=== PATIENT | female | born 1955 | race Caucasian/White ===

== ENCOUNTER → 2017-10-30 12:21 | Outpatient (CLI) | payer MEDICARE, MEDICAID, SELFPAY ==
--- NOTE | 2017-10-30 12:30 | XR_ITS ---
XR elbow RT min 3V COMPARISON: None HISTORY: Right elbow pain TECHNIQUE: AP lateral and oblique views FINDINGS: There is no fracture or dislocation. There is no abnormal fat pad sign. There is minor spurring of the coronoid process of the olecranon fossa and mild spurring of the posterior aspect of the olecranon fossa. IMPRESSION: Mild degenerative and/or posttraumatic change, no acute fracture seen
--- NOTE | 2017-10-30 12:30 | XR_ITS ---
XR shoulder RT min 2V COMPARISON: None HISTORY: Right shoulder pain TECHNIQUE: 3 views right shoulder FINDINGS: The clavicle is intact. The AC joint appear normal. There is a lateral downsloping acromion process which causes some degree of subacromial stenosis. The humeral head and glenoid appear normal. There are no soft tissue calcifications. IMPRESSION: Lateral downsloping acromion process which could predispose to some degree of impingement syndrome and suggest clinical correlation
== END ==
PROVIDERS: PCP Family Medicine; Visit Provider Nurse Practitioner Family
DX: M79.601 Pain in right arm (principal)
CPT/HCPCS: 73030; 73080

== ENCOUNTER → 2017-11-13 11:35 | Outpatient (CLI) | payer MEDICARE, MEDICAID, SELFPAY ==
[2017-11-13 11:43] LABS: Microscopic, Urine URINE MICROSCOPIC (MICROSCOPIC)
[2017-11-13 12:39] LABS: Basophils % 0.4 % (0.1-2.0); Eosinophils # 0.1 K/mm3 (0.0-0.4); Eosinophils % 2.1 % (0.1-12.0); Hematocrit 37.7 % (37.0-47.0); Hemoglobin 12.1 g/dL (12.2-16.2); Lymphocytes # 1.6 K/mm3 (0.7-4.5); Lymphocytes % 24.1 K/mm3 (10-50); Mean Corpuscular Hemoglobin 27.9 pg (27.0-31.2); Mean Corpuscular Volume 87.3 fl (81-99); Monocytes # 0.3 K/mm3 (0.1-1.0); Monocytes % 4.2 % (1.7-9.3); Neutrophils # 4.6 K/mm3 (1.8-7.8); Neutrophils % 69.2 % (37.0-80.0); Platelet Count 162 K/mm3 (142-424); Red Blood Count 4.32 M/mm3 (4.20-5.40); Red Cell Distribution Width 13.8 % (11.5-17.5); White Blood Count 6.6 K/mm3 (4.8-10.8)
[2017-11-13 13:49] LABS: Creatinine,Urine Random 176 mg/dL (20-320); Total Protein,Urine Random 144.2 mg/dL (0.0-11.9)
[2017-11-13 13:51] LABS: Appearance,Urine SL CLOUDY (Clear); Bilirubin,Urine Negative (Negative); Blood, Urine Negative (Negative); Color,Urine YELLOW (Yellow); Glucose,Urine (UA) 2+ (Negative); Ketones,Urine Negative (Negative); Leukocyte Esterase,Urine Negative (Negative); Nitrate,Urine Negative (Negative); PH,Urine 5.5 (5.0-8.5); Protein,Urine 2+ (Negative); Specific Gravity, Urine >= 1.030 (1.005-1.030); Urobilinogen,Urine 0.2 EU/dl (0.2)
[2017-11-13 14:25] LABS: Bacteria,Urine 3+ /lpf
[2017-11-13 15:25] LABS: Albumin Level 3.2 gm/dL (3.4-5.0); Anion Gap 16.1 mEq/L (5-15); Blood Urea Nitrogen 21 mg/dL (7-18); Carbon Dioxide 24 mmol/L (21.0-32.0); Chloride 103 mmol/L (98-107); Creatinine,Serum 1.42 mg/dL (0.55-1.02); Estimated Glomerular Filt Rate 37 ml/min (>60); GFR (African American) 45 ML/MIN (>60); Glucose 254 mg/dL (74-106); Phosphorous 2.6 mg/dL (2.4-4.9); Potassium 4.1 mmoL/L (3.5-5.1); Sodium 139 mmol/L (136-145)
[2017-11-15 06:43] LABS: Parathyroid Hormone Intact 55 pg/mL (15-65); Vitamin D 25 Hydroxy 13.4 ng/mL (30.0-100.0)
== END ==
PROVIDERS: Visit Provider Internal Medicine Nephrology
DX: N18.4 Chronic kidney disease, stage 4 (severe) (principal); R82.90 Unspecified abnormal findings in urine
CPT/HCPCS: 36415; 80069; 81001; 82570; 82652; 83970; 84155; 85025; 87086

== ENCOUNTER → 2017-11-27 13:25 | Outpatient (POV) | payer MEDICARE, MEDICAID, SELFPAY | PROVIDERS: PCP Family Medicine; Visit Provider Internal Medicine Nephrology | DX: Z00.00 Encounter for general adult medical examination without abnormal findings (principal) ==

== ENCOUNTER → 2018-01-16 10:36 | Outpatient (CLI) | payer MEDICARE, MEDICAID, SELFPAY ==
--- NOTE | 2018-01-16 10:40 | NVE_ITS ---
Venous Exam Indications: 729.5 Pain in limb. IMPRESSIONS 1. There is no evidence of significant Reflux. 2. No evidence of deep or superficial vein thrombosis involving the right lower extremity Right lower extremity venous duplex evaluation. Doppler flow study including spectral analysis, color and salazar scale imaging. Location: Vascular laboratory. Patient status: Outpatient. Tables: Venous flow and imaging: + +-------+ + Location Overall Flow properties + +-------+ + Right common femoral Patent Normal phasicity; spontaneous; normal augmentation; compressible + +-------+ + Right saphenofemoral junction Patent Compressible + +-------+ + Right profunda femoral Patent Compressible + +-------+ + Right femoral Patent Normal phasicity; spontaneous; normal augmentation; compressible + +-------+ + Right greater saphenous Patent Normal phasicity; spontaneous; normal augmentation; compressible + +-------+ + Right popliteal Patent Normal phasicity; spontaneous; normal augmentation; compressible + +-------+ + Right posterior tibial Patent Compressible + +-------+ + Right peroneal Patent Compressible + +-------+ + Right gastrocnemius Patent Compressible + +-------+ + Right soleal Patent Compressible + +-------+ + (Report amended ) Electronically signed by: Laron Jimenez [id number]
== END ==
PROVIDERS: PCP Family Medicine; Visit Provider Family Medicine
DX: M79.604 Pain in right leg (principal); R60.0 Localized edema; E79.0 Hyperuricemia without signs of inflammatory arthritis and tophaceous disease
CPT/HCPCS: 93971

== ENCOUNTER → 2018-04-06 10:03 | Outpatient (CLI) | payer MEDICARE, MEDICAID, SELFPAY ==
--- NOTE | 2018-04-06 10:10 | XR_ITS ---
XR foot wt bearing LT 3V HISTORY: Foot pain, heel pain ITS.REASON: pain ORDERING PHYSICIAN: Mely Reyes DPM PATIENT AGE: 63 years COMPARISON: None FINDINGS: There is a prominent calcaneal spur measuring 16 mm. No erosive change evident. There is an enthesophyte at the Achilles insertion with a separate area of ossification proximal to the identified. There is some exostosis along the posterior and superior aspect of the calcaneus consistent with a Lainey deformity. Kager's fat pad is preserved.. Osteoarthritic changes are present at the mid foot at the talonavicular joint and the navicular cuneiform joint. There are cystic changes in the navicular measuring up to 17 mm. There is mild flexion deformity of the second and third toes. IMPRESSION: 1. Prominent calcaneal spur. 2. Lainey deformity of the calcaneus which may be seen with retrocalcaneal bursitis. 3. Osteoarthritic changes of the midfoot with prominent cystic changes of the navicular
--- NOTE | 2018-04-06 10:10 | XR_ITS ---
XR foot wt bearing RT 3V HISTORY: Heel pain ITS.REASON: pain ORDERING PHYSICIAN: Mely Reyes DPM PATIENT AGE: 63 years COMPARISON: None FINDINGS: There is a prominent calcaneal spur measuring 15 mm. No erosive changes evident of the spur. Achilles enthesophyte also noted at the calcaneus. There are mild osteoarthritic changes of the midfoot with cystic changes involving the body of the navicular and 14 mm. Mild osteoarthritic changes are present at the talonavicular joint and the navicular cuneiform joint. Borderline pes planus. There is spurring at the anterior distal aspect of the tibia with a lucency noted at the base of the spur. IMPRESSION: 1. Prominent bony spur of the calcaneus. 2. Osteoarthritic changes of the midfoot with cystic changes of the navicular. 3. Mild pes planus
== END ==
PROVIDERS: PCP Family Medicine; Visit Provider Podiatrist
DX: M79.673 Pain in unspecified foot (principal)
CPT/HCPCS: 73630

== ENCOUNTER → 2018-06-18 10:45 | Outpatient (CLI) | payer MEDICARE, MEDICAID, SELFPAY ==
--- NOTE | 2018-06-18 10:50 | XR_ITS ---
XR foot wt bearing RT 3V Ordering Physician: Mely Reyes DPM Patient Age: 63 years: Female HISTORY: ITS.REASON: pain Right foot pain. Charcot joint TECHNIQUE: 3 views right foot weightbearing COMPARISON :04/06/2018 right foot & 03/10/2018 FINDINGS Midfoot arthritic changes most likely Charcot's joint type changes with history of diabetes. These are most evident at the navicular-cuneiform articulations. Also suggestion developing arthritic changes noted second third and fourth tarsal metatarsal joints. As stated Arthritic changes are most pronounced about the navicular. The navicular demonstrates sclerotic changes with a large cystic area centrally measuring measuring at least 12 mm simple: perhaps up to 14 mm.. Findings appear stable since 04/06/2018 There is some irregularity of the distal navicular articular cortex laterally on the frontal projection. . Again prominent calcaneal spur measuring 15 mm. No erosive changes here. Generous spurring from Achilles enthesopathic also noted at the calcaneus. These features are stable. Appears to be a stocking or very light cast left in place. Correlation required... IMPRESSION: Likely Charcot joint Arthritic changes mid foot.- Most evident about the navicular.Prominent cystic changes mid navicular. The features here appears similar to the March and February study . Prominent plantar calcaneal bony spurring. Also generous spurring/enthesopathy at the Achilles tendon insertion.
--- NOTE | 2018-06-18 10:50 | XR_ITS ---
. XR foot wt bearing LT 3V, Ordering Physician: Mely Reyes DPM Patient Age: 63 years: Female HISTORY: ITS.REASON: pain Right and left foot pain TECHNIQUE: Left foot-3 views weightbearing COMPARISON weightbearing right and left foot 04/06/2018. ======= LEFT FOOT 3 view weightbearingdr FINDINGS: Prominent arthritic changes about the navicular. Most pronounced at talar-navicular joint. On the oblique view of the navicular itself appears to be flattened with diffuse sclerosis & prominent arthritic cystic changes or erosive changes dorsal aspect of this joint on the oblique view..... On the AP & lateral view Generous lucent appearance at central portion navicular evident.-. Likely large degenerative cystic feature less likely some other process. Suspect/Difficult to exclude fracture through this cystic area ; as there appears to be more pronounced superior elevation of the dorsal margin the navicular on today's lateral view.-Vs 04/06/2018.. But this appearance could reflect slight difference projection as evident at the more overlapping metatarsals but concern regarding interval fracture. Correlation required here. . arthritic changes are present throughout the mid foot involving not only the talonavicular joint but likely thenavicular cuneiform joints. Also mild narrowing and arthritic changes at second and third tarsal- metatarsal joints. Also some likely arthritic changes between the intermediate and lateral cuneiforms.... Toes intact with only scant if any flexion... Joint space maintained toes and MTP joints.. Generous plantar calcaneal spur measuring 15 mm Length No erosive changeevident. There is an enthesophyte at the Achilles insertion with spurring here measuring up to 10 mm.. Separate area of ossification proximal to the identified. These features stable The bowel Osseous prominence along the posterior,/superior aspect of the calcaneus, May reflect developing Lainey deformity. Kager's fat pad is preserved Small vessel calcifications noted about ankle. Could reflect diabetes- if so this could be a neuropathic etiology of the arthritic changes at navicular. -------IMPRESSION:----Left foot 1.Prominent likely Charcot's joint arthritic changes midfoot most pronounced about the slightly flattened sclerotic navicular bone... 2... Prominent cystic changes involving the central & dorsal navicular.. ... On today's study appears to be additional dorsal elevation of Navicular on lateral view foot.-Although could be be projectional. Suspect/ & cannot exclude navicular fracture, through the large central cystic area mid navicular.... Since previous study 3... Small vessel calcification noted likely reflecting diabetes- thus suspect above features reflect Charcot joint changes at mid foot. Arthritic changes also seen at the second and third tarsal metatarsal joints.. 4. Again note prominent calcaneal spur again noted-. Stable. Also Possible developing Lainey deformity of the calcaneus again noted
== END ==
PROVIDERS: PCP Family Medicine; Visit Provider Podiatrist
DX: E11.610 Type 2 diabetes mellitus with diabetic neuropathic arthropathy (principal); M79.671 Pain in right foot
CPT/HCPCS: 73630

== ENCOUNTER → 2018-06-28 10:50 | Outpatient (CLI) | payer MEDICARE, MEDICAID, SELFPAY ==
--- NOTE | 2018-06-28 10:53 | XR_ITS ---
XR foot wt bearing RT 3V HISTORY: Pain, Charcot joint ITS.REASON: Charcot ORDERING PHYSICIAN: Mely Reyes DPM PATIENT AGE: 63 years COMPARISON: None FINDINGS: The changes of the navicular once again noted is sclerosis of the navicular cuneiform articulation. Prominent calcaneal spur present. No acute fracture or dislocation. IMPRESSION: Overall no significant change in the midfoot arthritic changes with cystic changes of the navicular which may represent Charcot joint
--- NOTE | 2018-06-28 10:53 | XR_ITS ---
XR foot wt bearing LT 3V HISTORY: Follow-up Charcot joint, foot pain ITS.REASON: Charcot ORDERING PHYSICIAN: Mely Reyes DPM PATIENT AGE: 63 years COMPARISON: 06/18/2018 FINDINGS: There has been overall no significant change from 06/18/2018. Cystic changes are once again noted involving the mid aspect of the navicular with underlying sclerosis and mild anterior displacement of the navicular by approximately 3 mm similar to the previous exam. There are cystic changes of the anterior talus and sclerotic changes of the navicular. No acute fracture or dislocation. A lucency is present through the proximal and medial aspect of the proximal phalanx of the fifth toe suggesting a nondisplaced fracture which is not significant changed. Prominent calcaneal spur once again noted IMPRESSION: Overall no significant change in the findings of Charcot joint involving the midfoot with greatest involvement of the navicular as described above.
== END ==
PROVIDERS: PCP Family Medicine; Visit Provider Podiatrist
DX: E11.610 Type 2 diabetes mellitus with diabetic neuropathic arthropathy (principal)
CPT/HCPCS: 73630

== ENCOUNTER → 2018-07-16 10:55 | Outpatient (CLI) | payer MEDICARE, MEDICAID, SELFPAY ==
--- NOTE | 2018-07-16 10:58 | XR_ITS ---
XR foot wt bearing RT 3V, XR foot wt bearing LT 3V Ordering Physician: Mely Reyes DPM Patient Age: 63 years: Female HISTORY: ITS.REASON: charcot TECHNIQUE: Right foot 3 view weightbearing Left foot 3 view weightbearing COMPARISON :June 28, 2018 right and left foot RIGHT FOOT 3 views weightbearing Changes at the navicular are again noted. Sclerosis arthritic changes at the navicular-cuneiforms articulation. Round Lucent or Cystic areas at navicular with the largest measuring at least 13 x 8 mm . Mild enthesopathy is seen at the base of the fifth metatarsal with some with screening of the bone here.. Large, & Prominent calcaneal spur again noted measuring at least 15 mm length. Prominent 12 mm enthesopathy spurring at the insertion of the Achilles tendon also noted. The toes and forefoot appear stable with only borderline narrowing at the DIP joints of fourth and fifth toe. MCP joints intact. Faint atherosclerotic calcification between first and second metatarsal. IMPRESSION: No significant change since previous studies May 2018. Developing Arthritic changes at the tarsals with arthritic// & cystic changes most evident about the distal articulations of the tarsal navicular... Features reflect early Charcot joint arthritic changes. LEFT FOOT 3 views weightbearing The severe arthritic changes throughout the midfoot most pronounced at the navicular and its articulations again observed. Findings compatible with a Charcot's joint again evident.. The navicular demonstrates pronounced volume loss with erosive changes at the mid and lateral aspect navicular with prominent joint space narrowing & severe arthritic changes about the tarsal navicular. Prominent cystic changes are seen throughout the navicular with underlying sclerosis slight dorsal expansion of the navicular on lateral view. . Likely arthritic changes likely at the third metatarsal-cuneiform articulation.- On today's lateral view there seems to be more pronounced severe and pronounced pes planus. More severe appearing pes planus on today's study correlation required.. Thel large plantar calcaneal spur again noted, over 15 mm length. Also again we see the generous spurring at insertion Achilles tendon over 1 cm with with calcification/or fragmentation at the distal Achilles tendon. These features stable MCP joint intact. Toes intact. IMPRESSION...... The left foot demonstrates much more severe Charcot's arthritic changes at mid foot, with findings most severe & pronounced involving the navicular and its articulations.. Also On today's lateral film there is more pronounced pes planus-with now somewhat rocker bottom appearance to plantar foot foot on today's weightbearing lateral film. This is a change since previous study. Correlation required
== END ==
PROVIDERS: PCP Family Medicine; Visit Provider Podiatrist
DX: E11.610 Type 2 diabetes mellitus with diabetic neuropathic arthropathy (principal)
CPT/HCPCS: 73630

== ENCOUNTER → 2018-07-27 09:56 | Outpatient (CLI) | payer MEDICARE, MEDICAID, SELFPAY ==
--- NOTE | 2018-07-27 09:58 | US_ITS ---
US Arterial Ankle Brachial Ind HISTORY: ITS.REASON: Skin Changes Diabetes ulcer left fifth digit. Hyperlipidemia. CAD. Bilateral rest pain. Bilateral claudication. Previous MN hypertension diabetic nonsmoker. . TECHNIQUE: Segmental pressures obtained of both right and left leg. These are compared to brachial blood pressure to yield index at each level sampled including summary BONILLA. The data sheets from the procedure are available in PACS on with visual presentation FINDINGS Rest study only performed today No prior studies available for comparison. Blood pressures reported are in millimeters mercury. ------ Right BONILLA = 1.16 Right TBI is 0.88 Brachial BP: 181 Thigh BP: BP 227 with index 1.25 Calf BP: BP 234 with index 1.29 Ankle PT: BP 210 with index 1. 1 6 Ankle DP : BP 210 with index 1.16 Digit =BP 159 with index 0.88 --- Left BONILLA = 1.19 Left TBI = 0.91 Brachial BPD: BP 173 Thigh BP: BP 218 with index 1.2 Calf BP: BP 225 with index 1.24 Ankle PT:BP 2:15 with index 1.19 Ankle DP: BP 232 with index 1.28 Digit = BP 164 with index 0.91 Pulses and waveforms: Normal and Satisfactory bilaterally.. IMPRESSION: Right BONILLA = 1.16 Right TBI is 0.88 . Left BONILLA = 1.19 Left TBI = 0.91 . Normal pulses and waveforms bilateral
== END ==
PROVIDERS: PCP Family Medicine; Visit Provider Podiatrist
DX: R09.89 Other specified symptoms and signs involving the circulatory and respiratory systems (principal)
CPT/HCPCS: 93922

== ENCOUNTER → 2018-08-06 10:23 | Outpatient (CLI) | payer MEDICARE, MEDICAID, SELFPAY ==
--- NOTE | 2018-08-06 10:37 | XR_ITS ---
XR foot wt bearing LT 3V HISTORY: ITS.REASON: pain ORDERING PHYSICIAN: Mely Reyes DPM PATIENT AGE: 63 years COMPARISON: 07/16/2018 FINDINGS: There is moderate pes planus. There is flattening of the navicular with a cystic area in the mid aspect of the navicular at 8 mm. Decreased density also noted involving the mid aspect of navicular. There is mild superior displacement of the anterior aspect of the navicular by approximately 4 mm. There is a prominent calcaneal spur. Soft tissue calcification is present at the region of the Achilles insertion. IMPRESSION: Overall no change in the midfoot arthritic changes with cystic changes, pes planus, and mild superior displacement of the navicular with flattening of the navicular consistent with Charcot joint of the mid foot which may be somewhat worse.
--- NOTE | 2018-08-06 10:37 | XR_ITS ---
XR foot wt bearing RT 3V HISTORY: ITS.REASON: pain ORDERING PHYSICIAN: Mely Reyes DPM PATIENT AGE: 63 years COMPARISON: 07/16/2018 FINDINGS: No fracture or dislocation. There is a prominent spur of the calcaneus and 18 mm. There is normal alignment with minimal osteoarthritic changes of the navicular cuneiform joint. Cystic changes are present in the mid aspect of the navicular at 14 mm. IMPRESSION: 1. Overall no change with no acute finding. 2. Mild osteoarthritic changes of the midfoot with a cystic lesion of the navicular
== END ==
PROVIDERS: PCP Family Medicine; Visit Provider Podiatrist
DX: E11.610 Type 2 diabetes mellitus with diabetic neuropathic arthropathy (principal)
CPT/HCPCS: 73630

== ENCOUNTER → 2018-08-14 09:29 | Outpatient (CLI) | payer MEDICARE, MEDICAID, SELFPAY ==
--- NOTE | 2018-08-14 09:32 | XR_ITS ---
XR knee LT 4V HISTORY: ITS.REASON: Lt Knee pain ORDERING PHYSICIAN: Shila Hernandez MD PATIENT AGE: 63 years COMPARISON: 11/12/2012 FINDINGS: Severe osteoarthritic changes are present at the medial compartment and patellofemoral joint. Prominent osteophytes are present. No fracture or dislocation. No lytic or blastic change. IMPRESSION: Severe osteoarthritis of the medial compartment and patellofemoral joint which has progressed compared to the previous exam
== END ==
PROVIDERS: PCP Family Medicine; Visit Provider Orthopaedic Surgery
DX: M25.562 Pain in left knee (principal)
CPT/HCPCS: 73564

== ENCOUNTER → 2018-08-27 09:13 | Outpatient (CLI) | payer MEDICARE, MEDICAID, SELFPAY ==
--- NOTE | 2018-08-27 09:18 | XR_ITS ---
XR foot wt bearing LT 3V HISTORY: Pain, Charcot joint ITS.REASON: charcot ORDERING PHYSICIAN: Mely Reyes DPM PATIENT AGE: 63 years COMPARISON: 08/06/2018 FINDINGS: Cystic lucencies once again noted involving the navicular and the distal aspect of the talus as well as the proximal aspect of the lateral cuneiform. There is mild superior displacement of the navicular with compressive changes of the navicular also noted. These findings are not significant change compared to previous exam and are consistent with bony destructive changes from Charcot joint in the mid foot. Prominent calcaneal osteophyte once again noted. IMPRESSION: Overall no significant change in the bony destructive/cystic changes of the midfoot as described above consistent with Charcot joint.
--- NOTE | 2018-08-27 09:18 | XR_ITS ---
XR foot wt bearing RT 3V HISTORY: Foot pain ITS.REASON: charcot ORDERING PHYSICIAN: Mely Reyes DPM PATIENT AGE: 63 years COMPARISON: 08/06/2018 FINDINGS: No fracture or dislocation. There is a prominent spur of the calcaneus of 18 mm. There is normal alignment with mild osteoarthritic changes of the navicular cuneiform joint and talonavicular joint. Cystic changes are present in the mid aspect of the navicular at 14 mm. IMPRESSION: No change Mild osteoarthritic changes of the midfoot with a cystic lesion of the navicular
== END ==
PROVIDERS: PCP Family Medicine; Visit Provider Podiatrist
DX: E11.610 Type 2 diabetes mellitus with diabetic neuropathic arthropathy (principal)
CPT/HCPCS: 73630

== ENCOUNTER → 2018-09-24 08:28 | Outpatient (CLI) | payer MEDICARE, MEDICAID, SELFPAY ==
--- NOTE | 2018-09-24 08:38 | XR_ITS ---
XR foot wt bearing LT 3V HISTORY: ITS.REASON: Charcot Follow-up ORDERING PHYSICIAN: Mely Reyes DPM PATIENT AGE: 63 years COMPARISON: 08/27/2018 FINDINGS: Increasing pes planus is noted. There are cystic changes involving the navicular as before. There does appear to be some compression changes now present within the navicular with superior displacement of the anterior aspect of the navicular by approximately 5 mm. There may have been fracture of the mid aspect of the navicular through the cystic changes with superior displacement of the anterior fragment. Osteoarthritic changes are present at the metatarsal tarsal joint and at the navicular cuneiform joint and talonavicular joint. IMPRESSION: Worsening pes planus with lucent changes of the navicular with increasing volume loss of the navicular with suspected mid navicular fracture and anterior displacement of the anterior navicular fragment Osteoarthritis of the midfoot
== END ==
PROVIDERS: PCP Family Medicine; Visit Provider Podiatrist
DX: E11.610 Type 2 diabetes mellitus with diabetic neuropathic arthropathy (principal)
CPT/HCPCS: 73630

== ENCOUNTER 2018-10-12 09:00 | Outpatient (RCR) | payer MEDICARE, MEDICAID, SELFPAY ==
--- NOTE | 2018-10-10 09:44 | [facility].PTOPWND ---
Rehab Outpt Wound Evaluation Rehab OP Wound Evaluation Start: 10/10/18 08:56 Freq: Status: Active Protocol: Document 10/10/18 09:29 EVELYN (Rec: 10/10/18 09:44 PHORNE [id number]) Electronically Signed By Jweel Gera Mendozae, PT 10/10/18 09:29 Subjective/History History History Pt is a 63 yowf who presents with c/o bette LE edema and pain x 2-3 yrs, maybe longer as pt is unsure of initial onset. She has hx of diabetic neuropathy and has been diagnosed with charcot foot bette, left worse than right. She presents with tenderness to palpation currently and 3+ pitting edema to bette LE. She reports previously having pain in bette LE with walking which immediately subsides with rest and is concerning for intermittent claudication, as she has BONILLA on left LE of 1.28 which would likely represent non-compressible arteries. 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 Lymphedema Eval Classification of Lymphedema Secondary Lymphedema Yes Stemmer's sign Stemmer's Sign no Stage of Lymphedema Lymphedema stages Stage I (Pitting edema, reduces w/ elevation, no fibrosis) Skin Changes Dry Skin Yes Affected Extremities Areas Affected by Lymphedema/Edema Right Lower Extremity Left Lower Extremity Manual Lymphatic Drainage Treatment Area MLD Treatment Area Right Lower Extremity Left Lower Extremity Wound Problems/Impairments Impairments Problems/Impairmments Palpation Tenderness Impaired Endurance Impaired Gait Pattern Impaired Walking Impaired Recreational Activities Increased Edema Lymphedema Present Subjective C/O Pain Impaired Self C
== END 2018-10-12 09:05 | disposition home or self-care (01) ==
LOC: PT 09:00
PROVIDERS: Visit Provider Podiatrist
DX: I89.0 Lymphedema, not elsewhere classified (principal); E11.610 Type 2 diabetes mellitus with diabetic neuropathic arthropathy; R60.9 Edema, unspecified
CPT/HCPCS: 97140; 97163

== ENCOUNTER → 2018-10-15 08:30 | Outpatient (CLI) | payer MEDICARE, MEDICAID, SELFPAY ==
--- NOTE | 2018-10-15 08:34 | XR_ITS ---
XR foot wt bearing LT 3V HISTORY: Follow-up Charcot joint ITS.REASON: charcot ORDERING PHYSICIAN: Mely Reyes DPM PATIENT AGE: 63 years COMPARISON: 09/24/2018 FINDINGS: Avascular necrosis noted of the navicular with bony fragmentation with pes planus and mild superior displacement of the superior navicular fragment. This has a similar appearance compared to the previous exam. On the lateral view there is some increase in dorsiflexion. Degenerative midfoot changes noted as before. 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
== END ==
PROVIDERS: PCP Family Medicine; Visit Provider Podiatrist
DX: E11.610 Type 2 diabetes mellitus with diabetic neuropathic arthropathy (principal); Z79.84 Long term (current) use of oral hypoglycemic drugs
CPT/HCPCS: 73630

== ENCOUNTER → 2018-10-31 12:06 | Outpatient (CLI) | payer MEDICARE, MEDICAID, SELFPAY ==
--- NOTE | 2018-10-31 12:07 | NM_ITS ---
CARDIOLITE SPECT MYOCARDIAL PERFUSION LEXISCAN, REST AND STRESS: History: History of [place], bypass surgery, hypertension, diabetes, hyperlipidemia, family history, shortness of breath, palpitations, syncope and fatigue Procedure: Patient received a 0.4 mg of intravenous Lexiscan, resting heart rate was 88 bpm resting blood pressure 218/115, with Lexiscan maximum heart rate achieved was 103 bpm which is less than 85% of the maximum predicted heart rate and a blood pressure was 206/95. With Lexiscan patient complained of shortness of breath. Electrocardiogram: Resting electrocardiogram showed sinus rhythm nonspecific ST-T changes, with Lexiscan there is occasional premature ventricular complex present, there is less than 1.[address] segment depression noted from the baseline EKG. The EKG portion of the Lexiscan Myoview is nondiagnostic. Cardiac stress and resting SPECT images: Cardiac stress and resting SPECT images were obtained using technetium 99 Myoview 30.2 mCi at stress and 10.3 mCi at rest. Gated SPECT further analysis of segmental wall motion and calculation of the ejection fraction also done. Cardiac stress and resting SPECT images show reversible ischemia involving the anteroseptal and anterolateral wall, computer derived ejection fraction of 54% with no regional wall motion abnormality, right ventricle is mildly enlarged with normal contractility. Conclusion: 1. The EKG portion of the Lexiscan Myoview is nondiagnostic. 2. Scintigraphic evidence of reversible ischemia involving the anteroseptal and anterolateral wall, computer derived ejection fraction 54% with no regional wall motion abnormality, right ventricle is mildly enlarged with normal contractility. 3. Abnormal Lexiscan Myoview study.
== END ==
PROVIDERS: PCP Family Medicine; Visit Provider Physician Assistant
DX: E66.01 Morbid (severe) obesity due to excess calories (principal); I11.9 Hypertensive heart disease without heart failure; I25.10 Atherosclerotic heart disease of native coronary artery without angina pectoris; R06.02 Shortness of breath; R29.898 Other symptoms and signs involving the musculoskeletal system; R60.0 Localized edema; E78.49 Other hyperlipidemia
CPT/HCPCS: 78452; 93017; A9502; J2785

== ENCOUNTER → 2018-11-08 08:17 | Outpatient (CLI) | payer MEDICARE, MEDICAID, SELFPAY ==
--- NOTE | 2018-11-08 08:21 | XR_ITS ---
XR foot wt bearing RT 3V HISTORY: Fall with injury and pain ITS.REASON: pain ORDERING PHYSICIAN: Mely Reyes DPM PATIENT AGE: 63 years COMPARISON: 08/27/2018 FINDINGS: There are osteoarthritic changes of the midfoot once again noted. No acute fracture or dislocation evident with no significant change from 08/27/2018 a bilocular cystic lesion is once again noted in the navicular possibly due to a prominent subarticular cyst. On the lateral view the patient is plantarflex seen with a healed not flush with the had. There is a prominent cranial spur 12 mm. IMPRESSION: Midfoot osteoarthritis with no change in the cystic lesion of the navicular and prominent calcaneal spur. No acute finding
--- NOTE | 2018-11-08 08:21 | XR_ITS ---
XR foot wt bearing LT 3V HISTORY: Foot pain, Charcot foot ITS.REASON: charcot ORDERING PHYSICIAN: Mely Reyes DPM PATIENT AGE: 63 years COMPARISON: 10/15/2018 FINDINGS: There is fragmentation of the navicular with cystic/lytic changes of the navicular once again noted. There is mild superior displacement of the superior aspect of the navicular x 4 mm not significant change. There is compressive change of the navicular. Osteoarthritic changes involve the midfoot as before. There is moderate pes planus. Prominent calcaneal spurs noted. No acute fracture or dislocation evident. IMPRESSION: Overall no change in the cystic changes and fragmentation of the navicular with pes planus
--- NOTE | 2018-11-08 13:22 | NVE_ITS ---
Venous Exam Indications: 729.5 Pain in limb. IMPRESSIONS 1. There is no evidence of significant Reflux. 2. No evidence of deep or superficial vein thrombosis involving the right lower extremity and left lower extremity Complete lower extremity venous duplex evaluation. Doppler flow study including spectral analysis, color and salazar scale imaging. Location: Vascular laboratory. Patient status: Outpatient. Tables: Venous flow and imaging: + +-------+ + + Location Overall Flow properties Comments + +-------+ + + Right common femoral Patent Normal phasicity; spontaneous; normal augmentation; compressible + +-------+ + + Right saphenofemoral Patent Compressible junction + +-------+ + + Right profunda femoral Patent Compressible + +-------+ + + Right femoral Patent Normal phasicity; Difficult to image spontaneous; normal entire vessel. augmentation; compressible; no reflux + +-------+ + + Right greater Patent Normal phasicity; saphenous spontaneous; normal augmentation; compressible + +-------+ + + Right popliteal Patent Normal phasicity; spontaneous; normal augmentation; compressible + +-------+ + + Right posterior tibial Patent Compressible Difficult to image entire vessel. + +-------+ + + Right peroneal Patent Compressible Difficult to image entire vessel. + +-------+ + + Right gastrocnemius Patent Compressible + +-------+ + + Right soleal Patent Compressible + +-------+ + + Left common femoral Patent Normal phasicity; spontaneous; normal augmentation; compressible + +-------+-----
== END ==
PROVIDERS: PCP Family Medicine; Visit Provider Podiatrist
DX: E11.610 Type 2 diabetes mellitus with diabetic neuropathic arthropathy (principal); M79.661 Pain in right lower leg; M79.662 Pain in left lower leg
CPT/HCPCS: 73630; 93970

== ENCOUNTER → 2018-11-19 07:43 | Outpatient (CLI) | payer MEDICARE, MEDICAID, SELFPAY ==
--- NOTE | 2018-11-19 07:44 | CT_ITS ---
CT foot LT wo con 3-D volume rendering with shading images included Ordering Physician: Mely Reyes DPM Patient Age: 63 years: Female HISTORY: . Charcot deformity, surgical planning Foot and ankle pain TECHNIQUE: Thin section Helical CT scanning performed at foot.. From the acquired images Axial sagittal and coronal reconstructions performed on CT workstation. Also 3-D volume rendering imaging with shading performed on independent CT workstation. [address] scans at this facility used one or more dose reduction techniques , viz: automatic exposure control, ma/Kv adjustment per patient's size, (including targeted exam where dose matched to the indication; i.e. head); or iterative reconstruction technique COMPARISON :Plain films of right foot from 03/10/2018, 05/29/2018 and left foot 11/08/2018 FINDINGS there are prominent cystic changes, erosions lucencies throughout the tarsals.. Abnormalities begin at distal talus.. Multiple subchondral cystic changes and lucencies, and erosions at distal talus.- These are most pronounced at the lateral aspect of the distal talus & particularly severe at the talar navicular joint Most severe Charcot's joint changes in this patient are seen at the collapsed and fragmented navicular. . extensive erosive changes, lucencies, & cystic throughout along with with prominent fragmentation and partial collapse of navicular.. These features are most the central and medial aspect of the navicular.. Appears to be a prominent vertically old fracture/cleavage at mid navicular- which separates it into the major medial and lateral fragment,. Also appears to be superior and inferior fragments on sagittal views..... There is volume loss and partial collapse at the navicular. Prominent erosive, cystic changes of this Charcot's arthritic joint are also seen about are seen about all the cuneiform bones as well. Although the arthritic changes at this level of cuneiforms are less pronounced. Erosive changes, Charcot's arthritic changes are most pronounced proximal aspect of the cuneiforms. The distal cuneiform bones forms appear to be more intact.. The cuboid. Well-maintained. Diffuse soft tissue edema swelling at about this midfoot. Diffuse subcutaneous edema most evident dorsally but also fluid surrounding the involved midfoot. The metatarsals remain at intact. The toes and intact with mild to moderate flexion deformity at the second-fifth toes. There is some fragmentation at the medial margin of the fifth metatarsal. Nonspecific. Calcaneus.: Nearly 10 mm length plantar calcaneal spur.Long thin calcaneal spur. There is also some thick thick spurring up to nearly 9 mm length at insertion of Achilles tendon. . The ankle mortise appears intact with dome of talus intact some mild roughening and irregularity developing at the tip of the lateral malleolus ...... IMPRESSION: ...... 1.. Pronounced Charcot's joint changes midfoot- most severe at the level of navicular.. ... Erosive, cystic changes yielding multiple lucencies throughout midfoot involvingthe distal talus, navicular and cuneiforms .... As stated Findings are most severe at the navicular.-With fragmentation & Partial collapse of the navicular. ... Erosive, cystic changes with prominent fragmentation navicular most evident at its midportion and medial aspect... .... Appears to be Old appearing vertical cleavage fracture zone at mid navicular The major fragments medial and lateral. (Nicely seen coronal image 50). Diffuse soft tissue swelling at the foot most evident at the mid foot
--- NOTE | 2018-11-19 08:07 | XR_ITS ---
XR knee RT 4V Comparison: None of the right knee. There is a left knee from July 2018 History: Right knee pain Fell with right knee pain. Technique: Weightbearing AP, lateral and [place] views were performed as well as oblique. Findings: A joint effusion suprapatella bursa is evident. There is slight narrowing at the medial compartment on the standing views. Lateral compartment is well maintained with vague chondrocalcinosis. Mild sharpening the joint margins. There is some mild hypertrophic changes about the common notch. Early marginal osteophyte formation about the patella margins.. [place] view shows normal position of patella with suggestion of some mild osteochondral irregularities at lateral facet of patella and lateral patellofemoral joint.. Impression: Minimal arthritic changes is seen at the right knee right (compared to the prominent osteoarthritis medial compartment left on July 2018 radiograph) . Mild narrowing at the medial compartment right knee. . & Mild degenerative changes lateral patellofemoral joint right knee.
[2018-11-19 08:26] LABS: Microscopic, Urine URINE MICROSCOPIC (MICROSCOPIC)
[2018-11-19 09:32] LABS: Basophils % 0.3 % (0.1-2.0); Eosinophils # 0.2 K/mm3 (0.0-0.4); Eosinophils % 2.7 % (0.1-12.0); Hematocrit 34.8 % (37.0-47.0); Hemoglobin 11.7 g/dL (12.2-16.2); Lymphocytes # 1.5 K/mm3 (0.7-4.5); Lymphocytes % 17.8 % (10-50); Mean Corpuscular HGB Conc 33.4 g/dL (31.8-35.4); Mean Corpuscular Hemoglobin 29.5 pg (27.0-31.2); Mean Corpuscular Volume 88.2 fl (81-99); Mean Platelet Volume 6.9 fl (7.4-10.4); Monocytes # 0.3 K/mm3 (0.1-1.0); Monocytes % 3.6 % (1.7-9.3); Neutrophils # 6.5 K/mm3 (1.8-7.8); Neutrophils % 75.6 % (37.0-80.0); Platelet Count 180 K/mm3 (142-424); Red Blood Count 3.95 M/mm3 (4.20-5.40); Red Cell Distribution Width 14.4 % (11.5-17.5); White Blood Count 8.6 K/mm3 (4.8-10.8)
[2018-11-19 09:50] LABS: Appearance,Urine CLEAR (Clear); Bilirubin,Urine Negative (Negative); Blood, Urine Negative (Negative); Color,Urine YELLOW (Yellow); Glucose,Urine (UA) Negative (Negative); Ketones,Urine Negative (Negative); Leukocyte Esterase,Urine 1+ (Negative); Nitrate,Urine POSITIVE (Negative); Protein,Urine 2+ (Negative); Specific Gravity, Urine >= 1.030 (1.005-1.030); Urobilinogen,Urine 0.2 EU/dl (0.2)
[2018-11-19 09:55] LABS: Creatinine,Urine Random 138 mg/dL (20-320); Total Protein,Urine Random 203.1 mg/dL (0.0-11.9)
[2018-11-19 10:32] LABS: Bacteria,Urine 3+ /lpf
[2018-11-19 11:36] LABS: Albumin Level 3.7 gm/dL (3.4-5.0); Anion Gap 17.5 mEq/L (5-15); Blood Urea Nitrogen 30 mg/dL (7-18); Calcium 9.3 mg/dL (8.5-10.1); Carbon Dioxide 23 mmol/L (21.0-32.0); Chloride 105 mmol/L (98-107); Creatinine,Serum 1.81 mg/dL (0.55-1.02); Estimated Glomerular Filt Rate 28 ml/min (>60); GFR (African American) 34 ML/MIN (>60); Glucose 140 mg/dL (74-106); Phosphorous 3.4 mg/dL (2.4-4.9); Potassium 4.5 mmoL/L (3.5-5.1); Sodium 141 mmol/L (136-145)
[2018-11-20 07:08] LABS: Vitamin D 25 Hydroxy 17.4 ng/mL (30.0-100.0)
[2018-11-20 15:09] LABS: Calcium, Ionized 5.3 mg/dL (4.5-5.6)
[2018-11-21 08:15] LABS: Parathyroid Hormone Intact 57 pg/mL (15-65)
== END ==
PROVIDERS: Internal Medicine Nephrology; PCP Family Medicine; Visit Provider Podiatrist
DX: E11.610 Type 2 diabetes mellitus with diabetic neuropathic arthropathy (principal); M25.561 Pain in right knee; N18.3 Chronic kidney disease, stage 3 (moderate); R82.90 Unspecified abnormal findings in urine
CPT/HCPCS: 36415; 73564; 73700; 80069; 81001; 82330; 82570; 82652; 83970; 84155; 84550; 85025; 87086; 87088; 87186

== ENCOUNTER → 2018-11-29 09:35 | Outpatient (POV) | payer MEDICARE, MEDICAID, SELFPAY | PROVIDERS: Visit Provider Podiatrist | DX: Z00.00 Encounter for general adult medical examination without abnormal findings (principal) ==

== ENCOUNTER → 2018-12-03 12:00 | Outpatient (POV) | payer MEDICARE, MEDICAID, SELFPAY | PROVIDERS: Visit Provider Internal Medicine Nephrology | DX: Z00.00 Encounter for general adult medical examination without abnormal findings (principal) ==

== ENCOUNTER → 2018-12-13 07:55 | Outpatient (CLI) | payer MEDICARE, MEDICAID, SELFPAY ==
--- NOTE | 2018-12-13 10:22 | MM_ITS ---
MM Dig screening mamm BI w/CAD ORDERING PHYSICIAN : Inocente Freeman MD PATIENT AGE: 63 years GENDER: Female COMPARISON: April 2017 & August 2012 bilateral digital mammograms INDICATION: Routine: SCREENING no hormones no new complaints noncontributory family history. TECHNIQUE: Standard CC and MLO images were obtained. R2 CAD reviewed. Additional nipple profile MLO view both breast included FINDINGS: Low-density breast with generalized fatty replacement bilaterally. No areas of concern. No dominant mass nor suspicious calcifications. No significant change since prior studies. . Minimal Vascular calcifications at the medial breast bilaterally again noted. Along with a single round dense benign calcifications bilaterally . Bilateral follow-up one year recommended. IMPRESSION: .......... . Stable negative bilateral mammogram with no areas of concern. No malignancy evident radiographically. Bilateral follow-up in one year recommended. BI-RADS Category: 1 Negative RECOMMENDED FOLLOW-UP: 1YR 1 YEAR FOLLOW-UP (A letter has been sent to the patient regarding results of the study.)
== END ==
PROVIDERS: PCP Family Medicine; Referring Provider Podiatrist; Visit Provider Family Medicine
DX: Z12.31 Encounter for screening mammogram for malignant neoplasm of breast (principal)
CPT/HCPCS: 77067

== ENCOUNTER → 2018-12-13 09:28 | Outpatient (POV) | payer MEDICARE, MEDICAID, SELFPAY | PROVIDERS: Visit Provider Podiatrist | DX: Z00.00 Encounter for general adult medical examination without abnormal findings (principal) ==

== ENCOUNTER → 2019-03-18 09:11 | Outpatient (CLI) | payer MEDICARE, SELFPAY ==
--- NOTE | 2019-03-18 09:18 | XR_ITS ---
PROCEDURE: XR CHEST 2V CLINICAL HISTORY: HTN COMPARISON: 06/10/2016 FINDINGS: Prior CABG. Left heart borders obscured which is a chronic finding and may be due to prior surgery. The remaining lungs are clear. Degenerative changes are present in the thoracic spine. IMPRESSION: No change with no acute finding Dictated by: Laron Jimenez MD 03/18/2019 11:35 Signed by: <Electronically signed by Laron Jimenez MD in [place]> 03/18/2019 11:35
== END ==
PROVIDERS: PCP Family Medicine; Visit Provider Family Medicine
DX: Z01.818 Encounter for other preprocedural examination (principal)
CPT/HCPCS: 71046

== ENCOUNTER → 2019-04-17 08:37 | Outpatient (CLI) | payer MEDICARE, MEDICAID, SELFPAY ==
--- NOTE | 2019-04-17 08:38 | XR_ITS ---
PROCEDURE: XR ANKLE WT BEARING LT MIN 3V CLINICAL INDICATION: pain, charcot COMPARISON: [id number] XR foot wt bearing LT 3V from 10/15/2018 FINDINGS: Mild soft tissue swelling medially and laterally. Charcot joint of the midfoot as described in the foot report. No acute fracture or dislocation of the ankle. Calcification noted along the distal aspect of the Achilles tendon region unchanged IMPRESSION: No acute finding of the ankle Dictated by: Laron Jimenez MD 04/18/2019 06:20 Electronically signed by Laron Jimenez MD in [place] 04/18/2019 06:20
--- NOTE | 2019-04-17 08:38 | XR_ITS ---
PROCEDURE: XR DEXA AXIAL SKELETON CLINICAL HISTORY: Surgical Planning Or COMPARISON: No exams were available for comparison FINDINGS: L1-L4 density is 1.580 grams/centimeter sq with a T-score of 3.3. Left femoral neck density is 0.837 grams/centimeter sq with a T-score of -1.4 consistent with osteopenia. IMPRESSION: Osteopenia with moderate fracture risk. Treatment advised. Suggest follow-up exam March 2021 Dictated by: Laron Jimenez MD 04/17/2019 15:15 Electronically signed by Laron Jimenez MD in [place] 04/17/2019 15:15
--- NOTE | 2019-04-17 08:38 | XR_ITS ---
PROCEDURE: XR FOOT WT BEARING RT 3V CLINICAL INDICATION: pain,charcot COMPARISON: [id number] XR foot wt bearing LT 3V from 09/24/2018 [id number] XR foot wt bearing LT 3V from 10/15/2018 [id number] XR foot wt bearing LT 3V from 11/08/2018 [id number] XR foot wt bearing RT 3V from 11/08/2018 FINDINGS: Subarticular cystic changes are present involving the navicular with osteoarthritic changes of the navicular cuneiform joint. Cystic changes are also present involving the lateral cuneiform. There is borderline pes planus. Prominent calcaneal spurs present. No acute fracture or dislocation. No bony destructive process. IMPRESSION: Osteoarthritic change of the midfoot with subarticular cystic changes. Overall not significantly changed Dictated by: Laron Jimenez MD 04/18/2019 06:22 Electronically signed by Laron Jimenez MD in [place] 04/18/2019 06:22
--- NOTE | 2019-04-17 08:38 | XR_ITS ---
PROCEDURE: XR FOOT WT BEARING LT 3V CLINICAL INDICATION: pain,charcot Charcot foot, Charcot joint pain and popping and cracking COMPARISON: 11/08/2018 FINDINGS: There is fragmentation with increased density involving the navicular consistent with Charcot joint with some displacement of the navicular fragment superiorly with pes planus. Degenerative changes are also present involving the cuneiforms. There may been some increase in destruction of the navicular with mild increase in superior displacement of the superior navicular fragment IMPRESSION: Charcot joint of the midfoot as described above with pes planus Dictated by: Laron Jimenez MD 04/18/2019 06:18 Electronically signed by Laron Jimenez MD in [facility] 04/18/2019 06:18
--- NOTE | 2019-04-17 08:38 | XR_ITS ---
PROCEDURE: XR ANKLE WT BEARING RT MIN 3V CLINICAL INDICATION: pain, charcot Popping and cracking COMPARISON: No exams were available for comparison FINDINGS: Mild soft tissue swelling medially and laterally. Osteoarthritic changes with osteophyte of the anterior distal tibia. Generalized vascular calcification IMPRESSION: Degenerative changes, no acute finding Dictated by: Laron Jimenez MD 04/18/2019 06:19 Electronically signed by Laron Jimenez MD in [place] 04/18/2019 06:19
--- NOTE | 2019-04-17 08:42 | XR_ITS ---
PROCEDURE: XR CHEST 2V CLINICAL HISTORY: HTN Cough congestion, heart disease COMPARISON: CXR CHEST(2 VIEWS-NOT PORTABLE) from 11/24/2015 CXR CHEST(2 VIEWS-NOT PORTABLE) from 06/10/2016 XR CHEST 2V from 03/18/2019 FINDINGS: Prior CABG. There is increased density along the left heart border probably postsurgical changes having a similar appearance on the previous exam of 03/18/2019. The remaining lungs are clear. There are some fibrotic changes posterior to the heart as seen on the lateral view. No lobar consolidation or collapse. There are degenerative changes in the thoracic spine. IMPRESSION: No acute findings. Dictated by: Laron Jimenez MD 04/17/2019 10:46 Electronically signed by Laron Jimenez MD in [facility] 04/17/2019 10:47
[2019-04-17 10:42] LABS: Basophils % 0.3 % (0.1-2.0); Eosinophils # 0.2 K/mm3 (0.0-0.4); Eosinophils % 2.7 % (0.1-12.0); Hematocrit 34.4 % (37.0-47.0); Hemoglobin 11.2 g/dL (12.2-16.2); Lymphocytes # 1.7 K/mm3 (0.7-4.5); Mean Corpuscular HGB Conc 32.5 g/dL (31.8-35.4); Mean Corpuscular Hemoglobin 29.4 pg (27.0-31.2); Mean Corpuscular Volume 90.4 fl (81-99); Mean Platelet Volume 6.5 fl (7.4-10.4); Monocytes # 0.2 K/mm3 (0.1-1.0); Monocytes % 3.2 % (1.7-9.3); Neutrophils # 4.2 K/mm3 (1.8-7.8); Neutrophils % 66.6 % (37.0-80.0); Platelet Count 188 K/mm3 (142-424); Red Blood Count 3.81 M/mm3 (4.20-5.40); Red Cell Distribution Width 14.3 % (11.5-17.5); White Blood Count 6.3 K/mm3 (4.8-10.8)
[2019-04-17 10:57] LABS: Alanine Aminotransferase 18 U/L (12-78); Albumin Level 3.5 gm/dL (3.4-5.0); Alkaline Phosphatase 112 U/L (46-116); Anion Gap 13.8 mEq/L (5-15); Aspartate Amino Transferase 23 U/L (15-37); Bilirubin,Total 0.4 mg/dL (0.2-1.0); Blood Urea Nitrogen 33 mg/dL (7-18); Calcium 9.3 mg/dL (8.5-10.1); Carbon Dioxide 26 mmol/L (21.0-32.0); Chloride 106 mmol/L (98-107); Creatinine,Serum 1.67 mg/dL (0.55-1.02); Estimated Glomerular Filt Rate 31 ml/min (>60); GFR (African American) 37 ML/MIN (>60); Globulin 3.5 gm/dl (1.3-3.2); Glucose 161 mg/dL (74-106); Potassium 4.8 mmoL/L (3.5-5.1); Sodium 141 mmol/L (136-145)
[2019-04-17 12:42] LABS: INR 1.01 (0.9-1.1); Prothrombin Time 10.5 seconds (9.4-11.8)
[2019-04-18 06:14] LABS: Vitamin D 25 Hydroxy 17.4 ng/mL (30.0-100.0)
== END ==
PROVIDERS: PCP Family Medicine; Visit Provider Podiatrist
DX: E11.610 Type 2 diabetes mellitus with diabetic neuropathic arthropathy (principal); M81.0 Age-related osteoporosis without current pathological fracture; Z01.818 Encounter for other preprocedural examination; E55.9 Vitamin D deficiency, unspecified; Z51.81 Encounter for therapeutic drug level monitoring
CPT/HCPCS: 36415; 71046; 73610; 73630; 77080; 80053; 82652; 85025; 85610

== ENCOUNTER 2019-04-24 14:08 | Observation (INO) ==
--- NOTE | 2019-04-24 07:38 | Operative Note ---
Date of procedure: 04/24/19 Pre-op Diagnosis:: 1. 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 Diabetic Charct's arthropathy 3. Left Charcot foot due to diabetes mellitus 4. Small vessel arterial disease due to type 2 diabetes mellitus 5. Osteonecrosis 6. Osteoarthritis, left foot 7. Foot pain, bilateral 8. Synovitis of foot 9. Left foot lipoma Post-op Diagnosis:: Same Procedure performed:: 1. Left Charcot reconstruction: triple arthrodesis 2. Left medial column arthodesis 3. Left lateral column arthrodesis 4. Left foot synovectomy 5. Left tendon achilles lengthening 6. Left application of external fixation device 7. Left resection of navicular ostenecrosis (non-union fracture fragmentation) 8. Left repair of tibialis anterior tendon 9. Left soft tissue mass (lipoma) excision 10. Left peroneal tendon debridement Surgeon:: Mely Reyes DPM [employer] ASSEMBLER:: Stuart Magana Anesthesia: GETA, regional (femoral, sciatic nerve block) Estimated blood loss (mL): 50 Clinical Note:: B/L Charcot Neuroarthropathy: CT scan left foot, 11/19/18: IMPRESSION: 1. Pronounced Charcot's joint changes midfoot- most severe at the level of navicular. Erosive, cystic changes yielding multiple lucencies throughout midfoot involvingthe distal talus, navicular and cuneiforms. As stated Findings are most severe at the navicular, with fragmentation & partial collapse of the navicular. Erosive, cystic changes with prominent fragmentation navicular most evident at its midportion and medial aspect. Appears to be Old appearing vertical cleavage fracture zone at mid navicular. The major fragments medial and lateral. (Nicely seen coronal image 50). Diffuse soft tissue swelling at the foot most evident at the mid foot. X-rays b/l feet WB pending 04/08/19. X-rays from 11/08/18 evaluated by myself. X-rays compared to views from 08/06, 07/16, 06/28 and 06/18/18. Right foot stable with no medial arch collapse or worsening degenerative changes. Right foot soft tissue swelling appears worse. Left foot has Charcot degenerative changes throughout the tarsometatarsal region with fragmentation of the navicular. Overall no change in the midfoot arthritic changes with cystic changes, pes planus, and mild superior displacement of the navicular with flattening of the navicular consistent with Charcot joint of the mid foot which may be somewhat worse. Left foot Charcot Neuroarthropathy: I had a long discussion with the patient about the etiology and treatment of Charcot foot. I explained how her diabetes and peripheral neuropathy have contributed to this. We also had a long discussion about her hemoglobin A1c and her poor sugar control. I explained that it is imperative that she gets her sugar back down, with a goal of 6.0-7.0. We discussed the progression of Charcot and how that puts her at high risk for medial arch collapse, foot deformities, ulceration, infection leading to amputation, loss of digits, part of the foot or even the leg. She verbalizes understanding. I explained that likely after the minor twisting injury the patient had a hypervascular response leading to a acute Charcot event. Currently the foot is not red hot but it is swollen. Residual edema noted. I explained in detail to the patient if the foot were to get red hot and swelling and she needs to use the walker she has at home and put on the fracture boot and be nonweightbearing. For now patient can weight-bear as tolerated in the fracture boot. She verbalizes understanding. Patient will need custom DM shoes with AFO or [place] boot. I do not think she would be compliant with a [place] boot. Will need a custom AFO for the right foot as she will be having increased pressure to this area while we do the left Charcot reconstruction in the 1-2 months. The patient and I had a long discussion about her treatment course. We discussed the conservative treatment option of strict nonweightbearing to the left lower extremity and in a cast. The nonweightbearing may be 8-12 weeks or months. The patient admits concern over finances and being able to afford surgery. Will refer to Alanna for discussion of insurance and payment plans. We did discuss surgical intervention with the application of an external fixator. I told the patient that I would recommend Charcot reconstruction at this point because the Lisfranc region is unstable. I can palpate and when moving the joints, can hear the bones crunching. When she is weightbearing the bones are "shifting and cracking". I explained that internal fixation at this point is not enough because it could still result in further collapse of the deformity (because of the degenerative and erosions, holes in the bones). She understands that the nonweightbearing period would be shorter with the ex fix because she can weight- bear in the frame eventually pending radiographic findings. She also understands that she will need to have bracing and physical therapy. She will need custom AFO/DM shoes to left after surgery. After a long discussion with the patient in regards to the conservative versus surgical treatment for the Charcot deformity, the patient has elected to proceed with surgery because they have have admitted limited compliance with conservative treatment and continue to have pain and worsening symptoms affecting daily activities. The patient has been instructed on the planned procedure, all risk versus benefits of the procedure discussed. These include but are not limited to: bleeding, infection, nerve and blood vessel damage, need for further surgery, delay in healing of soft tissue or bone, failure of bones to heal, non-union, mal-union, failure of the implant, broken pins, over lengthening of the tendon, prolonged pain and recovery, prolonged swelling, CRPS/RSD, DVT/PE, anesthetic complications and even . No guarantees were given. All questions fully answered. The patient verbalized understanding and agreed to proceed with surgery. Written consent was obtained. Necessary labs and pre-op testing ordered: CBC, CMP, CXR, EKG. Vascular studies done 07/27/18 ([facility]/toe pressures b/l). Patient had cardiac cath with Dr. Gonzalez 02/25/2019. Patient was granted medical clearance by cardiology and Dinorah Peace 03/04/2019. Medical clearance, per Dr. Freeman. Discussed 23 hr observation with possible SNF referral post operatively. Patient lives alone and I feel like it is best for her safety and nonweightbearing status that she go to a rehab center after surgery. She will be strict nonweightbearing. Patient is a fall risk and unable to use crutches. 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 Charcot, osteoarthritic changes throughout the midfoot. Osteoporosis. Significant synovitic tissue noted medial and lateral foot. Equinus deformity noted. Tear in the tibialis anterior tendon. Peroneal tendon synovitis. Left lateral foot lipoma overlying the sinus tarsi. Fragmentation of the navicular with midfoot collapse consistent with Charcot deformity. Operative note:: On this date and time patient was deemed an appropriate surgical candidate. Anesthesia performed a pre-op regional popliteal nerve block. With informed consent signed, the patient was taken to the operating theater. The patient was positioned supine. General anesthesia was induced. Tourniquet was applied to the left thigh at 250 mmHg. Left Tendon Achilles Lengthening: Attention was directed to the posterior leg. Three stab incisions where made overlying the Achilles. Utilizing the three holes, percutaneous anuj-section of the Achilles was performed with the foot maximally dorsiflexed. Release of the Achilles contracture was noted. The incisions were flushed with copious amounts of sterile saline and the wound was closed with Nylon. Left Foot Charcot reconstruction: Left Triple Arthrodesis: The left lower extremity was prepped and draped in a normal sterile fashion. Intraoperative fluoroscopy was utilized to take x-rays of both the foot and ankle. The Lisfranc was noted to be consolidated. There were degenerative changes noted to the midfoot. Severe arch collapse. Osteonecrosis and fragmentation of the navicular noted. Joints were marked out under intraoperative fluoroscopy. The limb was exsanguinated and the tourniquet was inflated. Attention was directed to the medial foot where a dorsal linear incision was made starting from the first metatarsal cuneiform joint and extending proximal to the talonavicular joint. Dissection was carried through skin into subcutaneous tissue with care taken to maintain surgical hemostasis and safely retract neurovascular structures. There was fibrosis and scarring noted. The medial marginal vein was safely retracted throughout the procedure. The tibialis anterior tendon was identified and noted to have some attentuation and tearing. It was retracted, and later repaired. Dissection was then carried down to the level of the bone. Left Foot Synovectomy: It should be noted that during the dissection and opening up of the NC, TN and ST joints there was lymphatic fluid was noted from the tissue. There was also fluid at the joints and around the peroneal tendon and sheath. It appeared to look like dark synovitis. Left Foot Soft Tissue Mass (Lipoma) Excision: Upon lateral foot dissection there was hard adipose tissue noted. It was debrided and sent to the lab as a specimen. Left Resection of Navicular Ostenecrosis (non-union fracture fragmentation): The 1st metararsal cuneiform, navicular cunieform, talonavicular joints were all visualized on the medial foot. Once the soft tissue was freed from each joint, distraction was used. There was cartilage erosion and dorsal spurring noted. Navicular fracture fragments were removed. Left Triple and Medial Column Arthrodesis: Utilizing an osteotomekristian the cartilage was removed from the joints. The wound was flushed with copious amounts of normal sterile saline. Oval myron and 2.8mm drill bit was used to fentrasate the subchondral bone plate down to the level of healthy bleeding bone. Attention was directed to the lateral foot. A curvilinear incision was mapped out extending proximal and posterior to the fibula along the course of the peroneal tendons and dorsal extending over the fourth fifth met base cuboid junction. Dissection was carried through skin to subcutaneous tissue with care taken to maintain surgical hemostasis and safely retract neurovascular structures. Sural nerve was identified and retracted inferiorly throughout the procedure. Dissection was carried through deep fascia to the level of the bone. There was dorsal spurring and osteophytes noted along the anterior process of calcaneus to the CCJ. The talus had severe erosions. Arthritic degenerative changes noted throughout the CC, subtalar and TN joints. The peroneal sheath was full of synovitis, which was debrided. The STJ was distracted and an osteotome and curette was then used to resect the remaining cartilage down to the level of good healthy bleeding bone. Attention was directed to the CC joint where power instrumentation was used to resect the calcaneal cuboid joint. Curette and osteotome was then used to remove the remaining cartilage down to the level of good healthy bleeding bone. Once all joints have been prepped to the level good healthy bleeding bone the wound was flushed with copious amounts of normal sterile saline. Intraoperative fluoroscopy was utilized to check position. At this point attention was directed to the 1st metatarsal head which did have some erosion of the cartilage noted. A McGlamry elevator was passed underneath the first metatarsal head to free plantar adhesions. Increased range of motion was noted to the first MPJ. Next, the medial column and TMTJs were reduced and temporarily pinned. Reduction checked on intraoperative fluoroscopy. Augment was applied to all fusion sites. Next, a guidewire for the 7.0 mm [employer] fusion beam was inserted under intra-op fluoro. This was checked in all 3 planes. The K wire was in good position extending down the medullary canal of the first metatarsal into the cuneiform into the navicular and then the talus. A 8.0mm IM Nail was then inserted in standard technique over the guidewire. Compression was noted of the medial column. Good compression noted at the first metatarsal cuneiform and navicular cuneiform joints. Position of the nail was noted to be adequate on AP, MO and lateral xray views. The subtalar joint was reduced and a partially threaded cannulated 7.0 mm beam was inserted from posterior to anterior compressing the STJ. Calcaneal axial, lateral, ankle views were obtained and deemed to be appropriate in terms of reduction and fixation. Lateral columm (4th bta-hahlzj-iqsyhejpz stabilization): Next another partially-threaded cannulated 7.0 mm bone team was inserted superior to the peroneal tendons underneath the fibula in front of the Achilles tendon and retrograded down toward the fourth metatarsal. Good compression bone purchase noted. Intraoperative fluoroscopy was utilized to check the position. The wound was flushed with copious amounts of saline. 2-0 Vicryl was used to repair deep tissue. At the point final position was checked under intra-op fluoro and deemed to be appropriate with stable fixation. There was stability noted across the Lisfranc region. All fixation was deemed to be in adequate alignment. Hardware did not extend into the ankle joint. The tourniquet was deflated at 150 minutes. Immediate hyperemic response was noted to the digits upon deflation of the tourniquet. The tourniquet was left deflated for over 30 minutes. The tourniquet was reinflated one more time during the case and left up for 100 minutes. Attention was directed to the medial column then lateral column where the incisions were closed. Left Tibialis Anterior Tendon Repair: 2-0 Vicryl was used to reapproximate the TA tendon in an over and over fashion. Amniotic graft was cut in half and wrapped around the tendon. 2-0 Vicryl was also used to reapproximate the deep fascia as well as the deep subcutaneous tissue in interrupted fashion. Left Peroneal Tendon Debridement: A 15 blade was used to sharply debride peroneal synovitis and scar tissue from around the tendon. The other half of the amniotic graft was wrapped around the tendon. 2-0 Vicryl was also used to reapproximate the deep fascia as well as the deep subcutaneous tissue in interrupted fashion. MITCH drain inserted to the lateral foot prior to subcu closure. 3-0 Vicryl was then used to reapproximate all subcutaneous tissue in an interrupted fashion. 3-0 Nylon was used to close the skin incisions in a horizontal mattress and simple suture fashion. The wo unds were cleansed. Skin tenisha applied to the foot. Left Foot Application of External Fixation Device: A [employer] external fixation device was utilized. The frame had been prebuilt with a footplate, three full leg rings and a 5/8th ring. Leg holders were positioned and the leg placed in the frame. Attention was directed to the lateral calcaneus where an olive wire was positioned from the inferior lateral calcaneus and driven to the medial inferior calcaneus. The calcaneus felt soft in texture. Next a second olive wire was driven from the medial c alcaneus into the lateral calcaneus. Attention was directed proximally to the leg rings where a wire was driven from the anterior face of the tibia lateral to medial and a second wire driven from medial to lateral. The wires were tensioned and some stability was noted to the frame. Next 2 more olive wires were used this time on the distal tibia from medial to lateral lateral to medial in an "X" pattern. The leg wires were tensioned to 125. Good stability of the frame was noted. Adequate position of the foot within the frame was noted. The skin was not touching or rubbing against the frame in any plane. Intraoperative fluoroscopy was utilized to obtain x-rays which showed adequate position of foot within the frame. Wires were tightened. Xeroform applied around the pin sites and a dry sterile dressing was applied to the foot. The foot plate was attached. The patient was awoken from anesthesia and transferred to recovery with vital signs stable and neurovascular status intact. Due to the patients body habitus (morbid obesity), synovitis, scar tissue, and Charcot deformity, this case took 2 hours longer than usual. The case was more tedious due to the excessive subcutaneous fat layers and fibrotic scar tissue. The case was also complicated by the bone quality which was soft and crumbly, it was difficult to hold reduction with the fixation. [facility]: [facility] (Ch[facility] external fixator) Hollister wires x 8 (tibia/calc/midfoot) 8.0mm IM Nail x 1 + locking screw 7.0mm fusion beam partially threaded x 2 Augment injectable Amnio graft Discharge/Plan: Patient will be admitted for pain control and medical mgmt and SNF placement. Patient is to maintain dressing clean dry and intact. MITCH drain mgmt. Ice behind the left knee and left lower extremity with DME assistance (wheelchair). Pain: [place] 7.5/325 1-2 tablets q4h prn. DVT ppx: Jeromy, SCD. Obtain post op films, left calc, ankle and foot, [address]. [address] Freeman for medical mgmt of insulin, IV fluids and blood pressure. PT in the am for gait training and transitions, SNF evaluation. Plan to consult case mgmt for SNF placement, DME (needs wheelchair, bedside commode, shower chair). Evaluate for hospital bed. Tourniquet time (min): 240 Condition: stable Disposition: floor Specimens:: Left foot lipoma Complications:: None
--- NOTE | 2019-04-24 14:04 | Progress Note ---
[facility] Anesthesia Checklist - Structural Data Admitted From: Home Planned Operative Procedure/s: orif l ankle Consent for Planned Operative Procedure(s) Verified: Yes - Additional verifications Anesthesia Reactions: No Hx Blood Transfusions: Yes Blood Transfusion Reaction: No - Airway Assessment C-Spine Mobility Assessed: Yes TMJ Mobility Assessed: Yes Dentition: Dentures-good fit - Neurological Assessment Level of Consciousness: Awake, Alert, Appropriate - Anesthesia Plan Anesthesia Risk discussed: Yes Anesthesia Plan: Verified ASA Class: III Anesthesia Type: General - Preoperative Comments Pre-Operative Comments: fem sciatic block exp to pt incl risks, pt agrees to proceed w block [facility] History I have reviewed the patient's past medical history: Yes Medical History: Reports:: Coronary Artery Disease, Diabetes Mellitus Type 2, G astroesophageal Reflux Disease(GERD), Hyperlipidemia, Hypertension, Myocardial Infarction Denies:: Cancer, Diabetes Mellitus Type 1, Internal Pacemaker, Lung Disease, MRSA, Seizures *Have you ever received a pneumonia vaccine?: Yes *Have you received a flu vaccine this season?: No Other Medical History: Reports: Arthritis, Hypothyroidism. Denies: Blood Transfusion Reaction Anesthesia experience/problems:: none Laterality Cases: Left: Arthroscopy Knee, Bilateral: Cataract Other Surgeries: Yes: No Previous Surgery, Cardiac Catheterization, Cholecystectomy, Colonoscopy, Hysterectomy-Partial, Tubal Ligation, Other. No: Pacemaker Amputation: No Fractures: No - *Social History Educational Level: Completed GED/General Educational Development Smoking Status: Never smoker Alcohol Intake: never Alcohol Intake Frequency:: other Substance Use Type: denies use *Occupational Status:: retired Housing: house Household Members: none *Travel in the last 8 weeks: None Family Hx:: Coronary Artery Disease, Diabetes, Hypertension
--- NOTE | 2019-04-24 14:06 | Progress Note ---
[facility] Anesthesia Record Part II Discharge Time: 14:30 Destination: floor PACU nurse assessment reviewed?: Yes Patient Condition:: Good Anesthesia Complications:: None Swallowing reflex intact?: Yes Cyanosis?: No
--- NOTE | 2019-04-24 14:06 | Progress Note ---
[facility] Anesthesia Record Part I Intake, IV Amount: 2,500 Estimated blood loss (mL): 50 Urine output (mL): 600 Blood Pressure: 159/87 SaO2: 97 Pulse Rate: 81 Respiratory Rate: 12 Temperature: 97.8 F Patient is:: Awake, Stable Stable to PACU at:: 14:00
--- NOTE | 2019-04-24 14:44 | Consult Report ---
*Admission Date: 04/24/19 <Hyun Cordova - 04/24/19 14:44> *Reason for consult:: Post op SNF evaluation <Hyun Cordova 04/24/19 15:38> *History of present illness: Ms. Huerta is a 64yr. old diabetic female being admitted for post op pain control and SNF placement after a left charcot reconstruction. Patient has a significant medical history including Coronary Artery Disease, Diabetes Mellitus Type 2, Gastroesophageal Reflux Disease(GERD), Hyperlipidemia, Hypertension, Myocardial Infarction, atypial angina, CAD (Coronary artery disease), abnormal stress test, Bradycardia, dizziness, Gout, and history of Shortness of breath. Patient had cardiac cath with Dr. Gonzalez 02/25/2019. Patient was granted medical clearance by cardiology and Dinorah Peace 03/04/2019. Patient also had a DEXA scan 04/17/19 which showed moderate fracture risk and low vitamin D at 17.4 Due to patients co-morbidities, large body habitus, minimal social support and no one to stay home with her after surgery, she needs PT and SNF placement evaluation. Patient is a fall risk, fracture risk and unable to use crutches, cane. <Hyun Cordova 04/24/19 15:38> Review of Systems - Review of Systems Review of systems:: pertinent systems reviewed and negative unless documented below <Hyun Cordova 04/24/19 15:38> - Constitutional Denies chills <Hyun Cordova 04/24/19 15:38> - Eyes Denies blind spots <Hyun Cordova 04/24/19 15:38> - ENT Denies abnormal hearing <Hyun Cordova 04/24/19 15:38> - *Cardiovascular Reports generalized swelling, Denies chest pain, Denies shortness of breath <Hyun Cordova 04/24/19 15:38> - *Respiratory Denies cough, Denies shortness of breath <Hyun Cordova 04/24/19 15:38> - *Gastrointestinal Denies abdominal pain <Hyun Cordova 04/24/19 15:38> - *Genitourinary Denies abnormal periods <Hyun Cordova 04/24/19 15:38> - *Musculoskeletal Reports joint pain, Reports deformity, Reports joint swelling <Hyun Cordova 04/24/19 15:38> - Integumentary/Breasts Reports hair loss, Reports nail changes, Reports dry skin <Hyun Cordova 04/24/19 15:38> - *Neurologic Reports tingling/numbness/burning sensations <Hyun Cordova 04/24/19 15:38> - Psychiatric Denies abnormal sleep pattern <Hyun Cordova 04/24/19 15:38> - Hematologic/Lymphatic Reports easy bleeding, Reports easy bruising <Hyun Cordova 04/24/19 15:38> - Allergic/Immunologic Reports GI upset with certain foods <Hyun Cordova 04/24/19 15:38> [facility] History I have reviewed the patient's past medical history: Yes <Hyun Cordova 04/24/19 15:38> Medical History: Reports:: Coronary Artery Disease, Diabetes Mellitus Type 2, Gastroesophageal Reflux Disease(GERD), Hyperlipidemia, Hypertension, Myocardial Infarction Denies:: Cancer, Diabetes Mellitus Type 1, Internal Pacemaker, Lung Disease, MRSA, Seizures <Hyun Cordova 04/24/19 14:44> *Have you ever received a pneumonia vaccine?: Yes <Hyun Cordova 04/24/19 14:44> *Have you received a flu vaccine this season?: No <Hyun Cordova 04/24/19 14:44> Other Medical History: Reports: Arthritis, Hypothyroidism. Denies: Blood Transfusion Reaction <Hyun Cordova 04/24/19 14:44> Anesthesia experience/problems:: none <Hyun Cordova 04/24/19 14:44> Laterality Cases: Left: Arthroscopy Knee, Bilateral: Cataract <Hyun Cordova 04/24/19 14:44> Other Surgeries: Yes: No Previous Surgery, Cardiac Catheterization, Cholecystectomy, Colonoscopy, Hysterectomy-Partial, Tubal Ligation, Other. No: Pacemaker <Hyun Cordova 04/24/19 14:44> Amputation: No <Hyun Cordova 04/24/19 14:44> Fractures: No <Hyun Cordova 04/24/19 14:44> - *Social History Educational Level: Completed GED/General Educational Development <Hyun Cordova 04/24/19 14:44> Smoking Status: Never smoker <Hyun Cordova 04/24/19 14:44> Alcohol Intake: never <Hyun Cordova 04/24/19 14:44> Alcohol Intake Frequency:: other <Hyun Cordova 04/24/19 14:44> Substance Use Type: denies use <Hyun Cordova 04/24/19 14:44> *Occupational Status:: retired <Hyun Cordova 04/24/19 14:44> Housing: house <Hyun Cordova 04/24/19 14:44> Household Members: none <Hyun Cordova 04/24/19 14:44> *Travel in the last 8 weeks: None <Hyun Cordova 04/24/19 14:44> Family Hx:: Coronary Artery Disease, Diabetes, Hypertension <Hyun Cordova 04/24/19 14:44> Meds Home Medications Medication Instructions Recorded Confirmed Type Aspirin [Aspirin 81mg chewable 81 mg PO DAILY 08/29/17 04/24/19 History tab] sitagliptin 100 mg tablet 100 mg PO DAILY #30 tab 10/03/17 04/24/19 Rx terazosin 1 mg capsule 1 mg PO HS #30 cap 10/03/17 04/24/19 Rx amlodipine 5 mg tablet 5 mg PO DAILY #30 tab 05/18/18 04/24/19 Rx ezetimibe 10 mg tablet 10 mg PO DAILY #30 tab 05/18/18 04/24/19 Rx allopurinol 300 mg tablet 300 mg PO DAILY 30 Days tab 06/18/18 04/24/19 History levothyroxine 25 mcg tablet 25 mcg PO DAILY 30 Days tab 06/18/18 04/24/19 History magnesium oxide 400 mg (241.3 mg 400 mg PO DAILY 30 Days #30 tab 08/27/18 04/24/19 History magnesium) tablet glimepiride 1 mg tablet 1 mg PO DAILY 09/19/18 04/24/19 History melatonin 5 mg tablet 10 mg PO HS PRN 09/19/18 04/24/19 History colchicine 0.6 mg tablet 1.2 mg PO DAILY 30 Days tab 09/24/18 04/24/19 History gabapentin 300 mg capsule 300 mg PO QHS 30 Days #60 cap 02/13/19 04/24/19 History ergocalciferol (vitamin D2) 50,000 50,000 unit PO DAILY #20 cap 04/18/19 04/24/19 Rx unit capsule Carvedilol [Carvedilol 25mg Tab] 37.5 mg PO BID 04/23/19 04/24/19 History Losartan/Hydrochlorothiazide 1 tab PO DAILY 04/23/19 04/24/19 History [Hyzaar 100-25 Tablet] RANOLAZINE ER 1000 MG TB12 1000 TAB 2,000 mg PO BID 04/23/19 04/24/19 History <Mely Reyes - 04/24/19 15:49> Allergies Allergy/AdvReac Type Severity Reaction Status Date / Time Sulfa (Sulfonamide Allergy Intermediate I-ITCHING Verified 04/24/19 06:17 Antibiotics) aspartame Allergy Mild Verified 04/24/19 06:17 [From Nutrasweet Aspartame] <Mely Reyes - 04/24/19 15:49> Exam Vital signs and Labs for Last 24 Hours: Temp Pulse Resp BP Pulse Ox 97.2 F L 84 14 155/89 H 98 04/24/19 14:36 04/24/19 14:36 04/24/19 14:36 04/24/19 14:36 04/24/19 14:36 Laboratory Results - last 24 hr 04/24/19 06:29: POC Glucose 140 H 04/24/19 07:30: Urine Color Yellow, Urine Appearance Clear, Urine pH 5.5, Ur Specific [place] 1.020, Urine Protein 2+, Urine Glucose (UA) Negative, Urine Ketones Negative, Urine Blood Trace-i, Urine Nitrate Positive, Urine Bilirubin Negative, Urine Urobilinogen 0.2, Ur Leukocyte Esterase 1+ A, Urine RBC 3-5, Urine WBC 20-50 A, Ur Squamous Epith Cells Occasional, Urine Bacteria 3+ A 04/24/19 14:14: POC Glucose 194 H <Mely Reyes - 04/24/19 15:49> Temp Pulse Resp BP Pulse Ox 97.8 F 81 12 159/87 H 96 04/24/19 14:06 04/24/19 14:06 04/24/19 14:06 04/24/19 14:06 04/24/19 06:20 Laboratory Results - last 24 hr 04/24/19 06:29: POC Glucose 140 H 04/24/19 07:30: Urine Color Yellow, Urine Appearance Clear, Urine pH 5.5, Ur Specific [place] 1.020, Urine Protein 2+, Urine Glucose (UA) Negative, Urine Ketones Negative, Urine Blood Trace-i, Urine Nitrate Positive, Urine Bilirubin Negative, Urine Urobilinogen 0.2, Ur Leukocyte Esterase 1+ A, Urine RBC 3-5, Urine WBC 20-50 A, Ur Squamous Epith Cells Occasional, Urine Bacteria 3+ A 04/24/19 14:14: POC Glucose 194 H <Hyun Cordova - 04/24/19 15:38> I & O for Last 24 hours: Intake & Output 04/22/19 04/23/19 04/24/19 04/25/19 11:59 11:59 11:59 11:59 Intake Total 2500 / 2500 Balance 2500 / 2500 Weight 264 lb <Mely Reyes - 04/24/19 15:49> Intake & Output 04/21/19 04/22/19 04/23/19 04/24/19 23:59 23:59 23:59 23:59 Intake Total 2500 / 2500 Balance 2500 / 2500 Weight 264 lb <JinmaryHyun - 04/24/19 14:44> - *Routine HEENT Exam Head: Present: normocephalic <NandomagdalenaHyun L - 04/24/19 15:38> Eye: Present: PERRL <NandomagdalenaHyun Boss - 04/24/19 15:38> - *Routine Neck Exam Present: full ROM <NandomagdalenaHyun L - 04/24/19 15:38> - *Routine Respiratory Exam Present: CTA bilaterally <NandouzHyun hernandez - 04/24/19 15:38> - *Routine Cardiovascular Exam Present: RRR <Hyun Cordova - 04/24/19 15:38> - *Routine Abdominal Exam Present: soft, normoactive bowel sounds <Hyun Cordova - 04/24/19 15:38> - *Routine Rectal Exam Patient deferred: visual exam <Hyun Cordova - 04/24/19 15:38> - *Routine Exam Patient deferred: external exam <Hyun Cordova - 04/24/19 15:38> - *Routine Extremities Exam Present: edema, normal capillary refill <Hyun Cordova 04/24/19 15:38> - Routine Back/Spine/Pelvis Exam Back/Spine: Present: full ROM <Hyun Cordova 04/24/19 15:38> - *Routine Skin Exam Present: dry, warm <Hyun Cordova 04/24/19 15:38> - *Routine Neurological Exam Present: moving all extremities <Hyun Cordova - 04/24/19 15:38> - Routine Psychiatric Exam Present: normal affect <Hyun Cordova 04/24/19 15:38> - Detailed Lower Extremity Exam Comments: LLE external fixation device, MITCH drain, dressing clean dry and intact. No calf or thigh pain b/l. Motor function and light touch sensation decreased secondary to femoral/sciatic nerve block. CFT at baseline. <Hyun Cordova - 04/24/19 15:38> Results - Labs Labs: Abnormal lab results 04/24/19 04/24/19 04/24/19 Range/Units 06:29 07:30 14:14 POC Glucose 140 H 194 H (70-110) Ur Leukocyte Esterase 1+ A (Negative) Urine WBC 20-50 A (0-3) #/hpf Urine Bacteria 3+ A (None) /lpf All other labs normal. <Mely Reyes - 04/24/19 15:49> Abnormal lab results 04/24/19 04/24/19 04/24/19 Range/Units 06:29 07:30 14:14 POC Glucose 140 H 194 H (70-110) Ur Leukocyte Esterase 1+ A (Negative) Urine WBC 20-50 A (0-3) #/hpf Urine Bacteria 3+ A (None) /lpf All other labs normal. 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 Current visit: Yes Status: Acute Category: Medical Code(s): E11.610 - Type 2 diabetes mellitus with diabetic neuropathic arthropathy (3) Osteopenia Current visit: Yes Status: Acute Category: Medical Code(s): M85.80 - Other specified disorders of bone density and structure, unspecified site (4) Risk for falls Current visit: Yes Status: Acute Category: Medical Code(s): Z91.81 - History of falling (5) Diabetic Charct's arthropathy Current visit: No Status: Acute Category: Medical Code(s): E11.610 - Type 2 diabetes mellitus with diabetic neuropathic arthropathy (6) Bradycardia Current visit: No Status: Chronic Category: Medical Code(s): R00.1 - Bradycardia, unspecified (7) CAD (coronary artery disease) Current visit: No Status: Chronic Qualifiers: Coronary Disease-Associated Artery/Lesion type: [place] artery [place] vs. transplanted heart: [place] heart Associated angina: with other forms of angina Qualified Code(s): I25.118 - Atherosclerotic heart disease of [place] coronary artery with other forms of angina pectoris Category: Medical Code(s): I25.10 - Atherosclerotic heart disease of [place] coronary artery without angina pectoris (8) Coronary arteriosclerosis Current visit: No Status: Chronic Category: Medical Code(s): I25.10 - Atherosclerotic heart disease of [place] coronary artery without angina pectoris (9) Dizziness Current visit: No Status: Chronic Category: Medical Code(s): R42 - Dizziness and giddiness (10) Edema Current visit: No Status: Chronic Qualifiers: Edema type: localized Qualified Code(s): R60.0 - Localized edema Category: Medical Code(s): R60.9 - Edema, unspecified (11) Foot pain Current visit: No Status: Chronic Qualifiers: Laterality: right Qualified Code(s): M79.671 - Pain in right foot Category: Medical Code(s): M79.673 - Pain in unspecified foot (12) HLD (hyperlipidemia) Current visit: No Status: Chronic Qualifiers: Hyperlipidemia type: mixed hyperlipidemia Qualified Code(s): E78.2 - Mixed hyperlipidemia Category: Medical Code(s): E78.5 - Hyperlipidemia, unspecified (13) HTN (hypertension) Current visit: No Status: Chronic Qualifiers: Hypertension type: essential hypertension Qualified Code(s): I10 - Essential (primary) hypertension Category: Medical Code(s): I10 - Essential (primary) hypertension (14) Hypertensive heart disease Current visit: No Status: Chronic Qualifiers: Heart failure presence: without heart failure Qualified Code(s): I11.9 - Hypertensive heart disease without heart failure Category: Medical Code(s): I11.9 - Hypertensive heart disease without heart failure (15) Obesity Current visit: No Status: Chronic Qualifiers: Obesity type: due to excess calories Obesity classification: adult class 3 (BMI >= 40) Serious obesity comorbidity presence: without serious comorbidity Body mass index: BMI 40.0-44.9 Qualified Code(s): E66.01 - Morbid (severe) obesity due to excess calories; Z68.41 - Body mass index (BMI) 40.0-44.9, adult Category: Medical Code(s): E66.9 - Obesity, unspecified (16) SOB (shortness of breath) Current visit: No Status: Chronic Category: Medical Code(s): R06.02 - Shortness of breath <Hyun Cordova L - 04/24/19 15:42> (1) Charcot's joint, left ankle and foot Current visit: Yes Status: Acute Category: Medical Code(s): M14.672 - Charcot's joint, left ankle and foot (2) 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 Current visit: Yes Status: Acute Category: Medical Code(s): E11.610 - Type 2 diabetes mellitus with diabetic neuropathic arthropathy (3) Osteopenia Current visit: Yes Status: Acute Category: Medical Code(s): M85.80 - Other specified disorders of bone density and structure, unspecified site (4) Risk for falls Current visit: Yes Status: Acute Category: Medical Code(s): Z91.81 - History of falling (5) Diabetic Charct's arthropathy Current visit: No Status: Acute Category: Medical Code(s): E11.610 - Type 2 diabetes mellitus with diabetic neuropathic arthropathy (6) Bradycardia Current visit: No Status: Chronic Category: Medical Code(s): R00.1 - Bradycardia, unspecified (7) CAD (coronary artery disease) Current visit: No Status: Chronic Qualifiers: Coronary Disease-Associated Artery/Lesion type: [place] artery [place] vs. transplanted heart: [place] heart Associated angina: with other forms of angina Qualified Code(s): I25.118 - Atherosclerotic heart disease of [place] coronary artery with other forms of angina pectoris Category: Medical Code(s): I25.10 - Atherosclerotic heart disease of [place] coronary artery without angina pectoris (8) Coronary arteriosclerosis Current visit: No Status: Chronic Category: Medical Code(s): I25.10 - Atherosclerotic heart disease of [place] coronary artery without angina pectoris (9) Dizziness Current visit: No Status: Chronic Category: Medical Code(s): R42 - Dizziness and giddiness (10) Edema Current visit: No Status: Chronic Qualifiers: Edema type: localized Qualified Code(s): R60.0 - Localized edema Category: Medical Code(s): R60.9 - Edema, unspecified (11) Foot pain Current visit: No Status: Chronic Qualifiers: Laterality: right Qualified Code(s): M79.671 - Pain in right foot Category: Medical Code(s): M79.673 - Pain in unspecified foot (12) HLD (hyperlipidemia) Current visit: No Status: Chronic Qualifiers: Hyperlipidemia type: mixed hyperlipidemia Qualified Code(s): E78.2 - Mixed hyperlipidemia Category: Medical Code(s): E78.5 - Hyperlipidemia, unspecified (13) HTN (hypertension) Current visit: No Status: Chronic Qualifiers: Hypertension type: essential hypertension Qualified Code(s): I10 - Essential (primary) hypertension Category: Medical Code(s): I10 - Essential (primary) hypertension (14) Hypertensive heart disease Current visit: No Status: Chronic Qualifiers: Heart failure presence: without heart failure Qualified Code(s): I11.9 - Hypertensive heart disease without heart failure Category: Medical Code(s): I11.9 - Hypertensive heart disease without heart failure (15) Obesity Current visit: No Status: Chronic Qualifiers: Obesity type: due to excess calories Obesity classification: adult class 3 (BMI >= 40) Serious obesity comorbidity presence: without serious comorbidity Body mass index: BMI 40.0-44.9 Qualified Code(s): E66.01 - Morbid (severe) obesity due to excess calories; Z68.41 - Body mass index (BMI) 40.0-44.9, adult Category: Medical Code(s): E66.9 - Obesity, unspecified (16) SOB (shortness of breath) Current visit: No Status: Chronic Category: Medical Code(s): R06.02 - Shortness of breath (17) Osteonecrosis Current visit: Yes Status: Acute Category: Medical Code(s): M87.9 - Osteonecrosis, unspecified (18) Small vessel arterial disease due to type 2 diabetes mellitus Current visit: Yes Status: Acute Category: Medical Code(s): E11.51 - Type 2 diabetes mellitus with diabetic peripheral angiopathy without gangrene (19) 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 Current visit: Yes Status: Acute Category: Medical Code(s): S92.253K - Displaced fracture of navicular [scaphoid] of unspecified foot, subsequent encounter for fracture with nonunion (20) Synovitis of left foot Current visit: Yes Status: Acute Category: Medical Code(s): M65.9 - Synovi tis and tenosynovitis, unspecified (21) Lipoma of left lower extremity Current visit: Yes Status: Acute Category: Medical Code(s): D17.24 - Benign lipomatous neoplasm of skin and subcutaneous tissue of left leg <Mely Reyes - 04/24/19 15:49> - Assessment and plan all Dx Assessment and Plan for all problems:: Procedure performed, DOS: 04/24/19: 1. Left Charcot reconstruction: triple arthrodesis 2. Left medial column arthodesis 3. Left lateral column arthrodesis 4. Left foot synovectomy 5. Left tendon achilles lengthening 6. Left application of external fixation device 7. Left resection of navicular ostenecrosis (non-union fracture fragmentation) 8. Left repair of tibialis anterior tendon 9. Left soft tissue mass (lipoma) excision 10. Left peroneal tendon debridement Plan: See above Due to the patient's body habitus, strict nonweightbearing status and fracture/fall risk she needs a rehab evaluation. Patient lives alone and has no one to help her with activities of daily living. She will not have 24-hour care or frequent family/social check-in's. She will be evaluated tomorrow by physical therapy and assess for transition. Strict nonweightbearing was so will need DME as above. I recommend patient for SNF for postoperative management of comorbidities, patient safety, fall risk, nonweightbearing to the left lower extremity after Charcot reconstruction with application of external fixation device. Patient will also need ex-fix dressing changes by nursing several times per week. <Mely Reyes - 04/24/19 15:49> Discharge/Plan: Admit per Dr. Freeman for medical mgmt of insulin, IV fluids and blood pressure. Patient will be admitted for pain control and medical mgmt and SNF placement. Patient is to maintain dressing clean dry and intact. MITCH drain mgmt. Ice behind the left knee and left lower extremity with DME assistance (wheelchair). Pain: [place] 7.5/325 1-2 tablets q4h prn. DVT ppx: Pedrox, SCD. Obtain post op films, left calc, ankle and foot, 3 views. PT in the am for gait training and transitions, SNF evaluation. Plan to consult case mgmt for SNF placement, DME (needs wheelchair, bedside commode, shower chair). Evaluate for hospital bed. <Hyun Cordova - 04/24/19 15:43>
--- NOTE | 2019-04-24 16:24 | Pharmacy Consult Notes ---
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
--- NOTE | 2019-04-24 18:40 | Progress Note ---
Internal Medicine - PN: Subj *Date: 04/24/19 *Time: 18:30 Interval history: FAMILY MEDICINE NOTE: This 64-year-old white female patient of Dr. Wang Nix underwent surgery by Dr. Trish Reyes this morning. The patient is diabetic and has a left Charcot foot along with a nondisplaced navicular fracture. She underwent left Charcot reconstruction with triple arthrodesis and synovectomy and Achilles tendon lengthening. Anesthesia was general endotracheal anesthesia and femoral sciatic nerve block. She has a PAST MEDICAL HISTORY of high blood pressure, hyperlipidemia, diabetes, and arteriosclerotic cardiovascular disease. She has chronic renal failure. She is s/p left nephrectomy. She has degenerative disc disease of the lumbosacral area. CABG, 4 vessels 2005. Heart cath 2012 showed EF=40-45%. Heart cath 02/25/[address] Gonzalez.Normal colonoscopy 2017. Exam Vital signs and Labs for Last 24 Hours: Temp Pulse Resp BP Pulse Ox 97.1 F L 81 14 162/85 H 95 04/24/19 15:30 04/24/19 15:30 04/24/19 15:30 04/24/19 15:30 04/24/19 15:59 Laboratory Results - last 24 hr 04/24/19 06:29: POC Glucose 140 H 04/24/19 07:30: Urine Color Yellow, Urine Appearance Clear, Urine pH 5.5, Ur Specific [place] 1.020, Urine Protein 2+, Urine Glucose (UA) Negative, Urine Ketones Negative, Urine Blood Trace-i, Urine Nitrate Positive, Urine Bilirubin Negative, Urine Urobilinogen 0.2, Ur Leukocyte Esterase 1+ A, Urine RBC 3-5, Urine WBC 20-50 A, Ur Squamous Epith Cells Occasional, Urine Bacteria 3+ A 04/24/19 14:14: POC Glucose 194 H 04/24/19 16:45: POC Glucose 227 H I & O for Last 24 hours: Intake & Output 04/22/19 04/23/19 04/24/19 04/25/19 11:59 11:59 11:59 11:59 Intake Total 2560 / 2560 Output Total 350 / 350 Balance 2210 / 2210 Weight 264 lb - Constitutional no acute distress Comments: She is resting hospital bed. No distress. The left foot is in a Charcot external fixator. - *Routine HEENT Exam Head: Present: normocephalic Eye: Present: PERRL. Absent: scleral injection (But there is some ecchymosis present.), periorbital tenderness ENT: Present: mucous membranes moist, nares patent - Routine Chest/Breast/Axilla Exam Chest wall: Absent: tenderness - *Routine Respiratory Exam Present: CTA bilaterally. Absent: respiratory distress - *Routine Cardiovascular Exam Present: RRR, S4. Absent: murmur - *Routine Abdominal Exam Present: soft (Obese). Absent: tenderness - *Routine Extremities Exam Present: edema (Trace edema on the right leg. 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 Current visit: Yes Status: Acute Category: Medical Code(s): E11.610 - Type 2 diabetes mellitus with diabetic neuropathic arthropathy (3) Osteopenia Current visit: Yes Status: Acute Category: Medical Code(s): M85.80 - Other specified disorders of bone density and structure, unspecified site (4) Risk for falls Current visit: Yes Status: Acute Category: Medical Code(s): Z91.81 - History of falling (5) Diabetic Charct's arthropathy Current visit: No Status: Acute Category: Medical Code(s): E11.610 - Type 2 diabetes mellitus with diabetic neuropathic arthropathy (6) Bradycardia Current visit: No Status: Chronic Category: Medical Code(s): R00.1 - Bradycardia, unspecified (7) CAD (coronary artery disease) Current visit: No Status: Chronic Qualifiers: Coronary Disease-Associated Artery/Lesion type: [place] artery [place] vs. transplanted heart: [place] heart Associated angina: with other forms of angina Qualified Code(s): I25.118 - Atherosclerotic heart disease of [place] coronary artery with other forms of angina pectoris Category: Medical Code(s): I25.10 - Atherosclerotic heart disease of [place] coronary artery without angina pectoris (8) Coronary arteriosclerosis Current visit: No Status: Chronic Category: Medical Code(s): I25.10 - Atherosclerotic heart disease of [place] coronary artery without angina pectoris (9) Dizziness Current visit: No Status: Chronic Category: Medical Code(s): R42 - Dizziness and giddiness (10) Edema Current visit: No Status: Chronic Qualifiers: Edema type: localized Qualified Code(s): R60.0 - Localized edema Category: Medical Code(s): R60.9 - Edema, unspecified (11) Foot pain Current visit: No Status: Chronic Qualifiers: Laterality: right Qualified Code(s): M79.671 - Pain in right foot Category: Medical Code(s): M79.673 - Pain in unspecified foot (12) HLD (hyperlipidemia) Current visit: No Status: Chronic Qualifiers: Hyperlipidemia type: mixed hyperlipidemia Qualified Code(s): E78.2 - Mixed hyperlipidemia Category: Medical Code(s): E78.5 - Hyperlipidemia, unspecified (13) HTN (hypertension) Current visit: No Status: Chronic Qualifiers: Hypertension type: essential hypertension Qualified Code(s): I10 - Essential (primary) hypertension Category: Medical Code(s): I10 - Essential (primary) hypertension (14) Hypertensive heart disease Current visit: No Status: Chronic Qualifiers: Heart failure presence: without heart failure Qualified Code(s): I11.9 - Hypertensive heart disease without heart failure Category: Medical Code(s): I11.9 - Hypertensive heart disease without heart failure (15) Obesity Current visit: No Status: Chronic Qualifiers: Obesity type: due to excess calories Obesity classification: adult class 3 (BMI >= 40) Serious obesity comorbidity presence: without serious comorbidity Body mass index: BMI 40.0-44.9 Qualified Code(s): E66.01 - Morbid (severe) obesity due to excess calories; Z68.41 - Body mass index (BMI) 40.0-44.9, adult Category: Medical Code(s): E66.9 - Obesity, unspecified (16) SOB (shortness of breath) Current visit: No Status: Chronic Category: Medical Code(s): R06.02 - Shortness of breath (17) Osteonecrosis Current visit: Yes Status: Acute Category: Medical Code(s): M87.9 - Osteonecrosis, unspecified (18) Small vessel arterial disease due to type 2 diabetes mellitus Current visit: Yes Status: Acute Category: Medical Code(s): E11.51 - Type 2 diabetes mellitus with diabetic peripheral angiopathy without gangrene (19) 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 Current visit: Yes Status: Acute Category: Medical Code(s): S92.253K - Displaced fracture of navicular [scaphoid] of unspecified foot, subsequent encounter for fracture with nonunion (20) Synovitis of left foot Current visit: Yes Status: Acute Category: Medical Code(s): M65.9 - Synovitis and tenosynovitis, unspecified (21) Lipoma of left lower extremity Current visit: Yes Status: Acute Category: Medical Code(s): D17.24 - Benign lipomatous neoplasm of skin and subcutaneous tissue of left leg - Assessment and plan all Dx Assessment and Plan for all problems:: Orders will be placed for required routine medicines. Thank you for the Consult.
--- NOTE | 2019-04-24 19:38 | History & Physical Report ---
*Admission Date: 04/24/19 *Chief complaint: Post Op Charcot Left Foot, Navicular Fracture Non-union *History of present illness: Ms. Huerta is a 64yr. old diabetic female being admitted for post op pain control and SNF placement after a left charcot reconstruction. Patient has a significant medical history including Coronary Artery Disease, Diabetes Mellitus Type 2, Gastroesophageal Reflux Disease(GERD), Hyperlipidemia, Hypertension, Myocardial Infarction, atypial angina, CAD (Coronary artery disease), abnormal stress test, Bradycardia, dizziness, Gout, and history of Shortness of breath. Patient had cardiac cath with Dr. Gonzalez 02/25/2019. Patient was granted medical clearance by cardiology and Dinorah Peace 03/04/2019. Patient also had a DEXA scan 04/17/19 which showed moderate fracture risk and low vitamin D at 17.4 Due to patients co-morbidities, large body habitus, minimal social support and no one to stay home with her after surgery, she needs PT and SNF placement evaluation. Patient is a fall risk, fracture risk and unable to use crutches, cane. [facility] History I have reviewed the patient's past medical history: Yes Medical History: Reports:: Coronary Artery Disease, Diabetes Mellitus Type 2, Gastroesophageal Reflux Disease(GERD), Hyperlipidemia, Hypertension, Myocardial Infarction Denies:: Cancer, Diabetes Mellitus Type 1, Internal Pacemaker, Lung Disease, MRSA, Seizures *Have you ever received a pneumonia vaccine?: No *Have you received a flu vaccine this season?: No Other Medical History: Reports: Arthritis, Hypothyroidism. Denies: Blood Transfusion Reaction Anesthesia experience/problems:: none Laterality Cases: Left: Arthroscopy Knee, Bilateral: Cataract Other Surgeries: Yes: No Previous Surgery, Cardiac Catheterization, Cholecystectomy, Colonoscopy, Hysterectomy-Partial, Tubal Ligation, Other. No: Pacemaker Amputation: No Fractures: No - *Social History Educational Level: Completed GED/General Educational Development Smoking Status: Never smoker Alcohol Intake: never Alcohol Intake Frequency:: other Substance Use Type: denies use *Occupational Status:: retired Housing: house Household Members: none *Travel in the last 8 weeks: None Family Hx:: Coronary Artery Disease, Diabetes, Hypertension Review of Systems - Review of Systems Review of systems:: pertinent systems reviewed and negative unless documented below - Constitutional Denies anorexia - Eyes Denies blind spots - ENT Denies abnormal hearing - *Cardiovascular Reports leg swelling, Denies shortness of breath - *Respiratory Denies chest congestion - *Gastrointestinal Denies nausea, Denies vomiting - *Genitourinary Denies abnormal periods - *Musculoskeletal Reports back pain, Reports joint swelling, Reports limited joint movement - Integumentary/Breasts Reports nail changes, Reports dry skin - *Neurologic Reports tingling/numbness/burning sensations, Denies abnormal hearing - Psychiatric Denies abnormal sleep pattern - Hematologic/Lymphatic Reports easy bleeding, Reports easy bruising - Allergic/Immunologic Reports GI upset with certain foods Meds Home Medications Medication Instructions Recorded Confirmed Type Aspirin [Aspirin 81mg chewable 81 mg PO DAILY 08/29/17 04/24/19 History tab] sitagliptin 100 mg tablet 100 mg PO DAILY #30 tab 10/03/17 04/24/19 Rx terazosin 1 mg capsule 1 mg PO HS #30 cap 10/03/17 04/24/19 Rx amlodipine 5 mg tablet 5 mg PO DAILY #30 tab 05/18/18 04/24/19 Rx ezetimibe 10 mg tablet 10 mg PO DAILY #30 tab 05/18/18 04/24/19 Rx allopurinol 300 mg tablet 300 mg PO DAILY 30 Days tab 06/18/18 04/24/19 History levothyroxine 25 mcg tablet 25 mcg PO DAILY 30 Days tab 06/18/18 04/24/19 History magnesium oxide 400 mg (241.3 mg 400 mg PO DAILY 30 Days #30 tab 08/27/18 04/24/19 History magnesium) tablet glimepiride 1 mg tablet 1 mg PO DAILY 09/19/18 04/24/19 History melatonin 5 mg tablet 10 mg PO HS PRN 09/19/18 04/24/19 History colchicine 0.6 mg tablet 1.2 mg PO DAILY 30 Days tab 09/24/18 04/24/19 History gabapentin 300 mg capsule 300 mg PO QHS 30 Days #60 cap 02/13/19 04/24/19 History ergocalciferol (vitamin D2) 50,000 50,000 unit PO DAILY #20 cap 04/18/19 04/24/19 Rx unit capsule Carvedilol [Carvedilol 25mg Tab] 37.5 mg PO BID 04/23/19 04/24/19 History Losartan/Hydrochlorothiazide 1 tab PO DAILY 04/23/19 04/24/19 History [Hyzaar 100-25 Tablet] RANOLAZINE ER 1000 MG TB12 1000 TAB 2,000 mg PO BID 04/23/19 04/24/19 History Allergies Allergy/AdvReac Type Severity Reaction Status Date / Time Sulfa (Sulfonamide Allergy Intermediate I-ITCHING Verified 04/24/19 06:17 Antibiotics) aspartame Allergy Mild Verified 04/24/19 06:17 [From Nutrasweet Aspartame] Exam Vital signs and Labs for Last 24 Hours: Temp Pulse Resp BP Pulse Ox 98.0 F 76 18 162/108 H 96 04/24/19 17:30 04/24/19 18:30 04/24/19 18:30 04/24/19 18:30 04/24/19 18:30 Laboratory Results - last 24 hr 04/24/19 06:29: POC Glucose 140 H 04/24/19 07:30: Urine Color Yellow, Urine Appearance Clear, Urine pH 5.5, Ur Specific [place] 1.020, Urine Protein 2+, Urine Glucose (UA) Negative, Urine Ketones Negative, Urine Blood Trace-i, Urine Nitrate Positive, Urine Bilirubin Negative, Urine Urobilinogen 0.2, Ur Leukocyte Esterase 1+ A, Urine RBC 3-5, Urine WBC 20-50 A, Ur Squamous Epith Cells Occasional, Urine Bacteria 3+ A 04/24/19 14:14: POC Glucose 194 H 04/24/19 16:45: POC Glucose 227 H I & O for Last 24 hours: Intake & Output 04/22/19 04/23/19 04/24/19 04/25/19 11:59 11:59 11:59 11:59 Intake Total 2560 / 2560 Output Total 350 / 350 Balance 2210 / 2210 Weight 264 lb - Constitutional no acute distress, morbidly obese - *Routine HEENT Exam Head: Present: normocephalic Eye: Present: PERRL - *Routine Neck Exam Present: supple - *Routine Respiratory Exam Present: accessory muscle use - *Routine Cardiovascular Exam Present: RRR - *Routine Abdominal Exam Present: soft - *Routine Rectal Exam Patient deferred: visual exam - *Routine Exam Patient deferred: external exam - *Routine Extremities Exam Present: edema, normal capillary refill - *Routine Skin Exam Present: intact, dry - *Routine Neurological Exam Present: moving all extremities - Detailed Lower Extremity Exam Comments: LLE external fixation device, MITCH drain and dressing clean dry and intact. No strike thru. Light touch sensation and motor function decreased secondary to nerve block. CFT intact at baseline. No calf or thigh pain noted b/l. 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 Current visit: Yes Status: Acute Category: Medical Code(s): E11.610 - Type 2 diabetes mellitus with diabetic neuropathic arthropathy (3) Osteopenia Current visit: Yes Status: Acute Category: Medical Code(s): M85.80 - Other specified disorders of bone density and structure, unspecified site (4) Risk for falls Current visit: Yes Status: Acute Category: Medical Code(s): Z91.81 - History of falling (5) Diabetic Charct's arthropathy Current visit: No Status: Acute Category: Medical Code(s): E11.610 - Type 2 diabetes mellitus with diabetic neuropathic arthropathy (6) Bradycardia Current visit: No Status: Chronic Category: Medical Code(s): R00.1 - Bradycardia, unspecified (7) CAD (coronary artery disease) Current visit: No Status: Chronic Qualifiers: Coronary Disease-Associated Artery/Lesion type: [place] artery [place] vs. transplanted heart: [place] heart Associated angina: with other forms of angina Qualified Code(s): I25.118 - Atherosclerotic heart disease of [place] coronary artery with other forms of angina pectoris Category: Medical Code(s): I25.10 - Atherosclerotic heart disease of [place] coronary artery without angina pectoris (8) Coronary arteriosclerosis Current visit: No Status: Chronic Category: Medical Code(s): I25.10 - Atherosclerotic heart disease of [place] coronary artery without angina pectoris (9) Dizziness Current visit: No Status: Chronic Category: Medical Code(s): R42 - Dizzine ss and giddiness (10) Edema Current visit: No Status: Chronic Qualifiers: Edema type: localized Qualified Code(s): R60.0 - Localized edema Category: Medical Code(s): R60.9 - Edema, unspecified (11) Foot pain Current visit: No Status: Chronic Qualifiers: Laterality: right Qualified Code(s): M79.671 - Pain in right foot Category: Medical Code(s): M79.673 - Pain in unspecified foot (12) HLD (hyperlipidemia) Current visit: No Status: Chronic Qualifiers: Hyperlipidemia type: mixed hyperlipidemia Qualified Code(s): E78.2 - Mixed hyperlipidemia Category: Medical Code(s): E78.5 - Hyperlipidemia, unspecified (13) HTN (hypertension) Current visit: No Status: Chronic Qualifiers: Hypertension type: essential hypertension Qualified Code(s): I10 - Essential (primary) hypertension Category: Medical Code(s): I10 - Essential (primary) hypertension (14) Hypertensive heart disease Current visit: No Status: Chronic Qualifiers: Heart failure presence: without heart failure Qualified Code(s): I11.9 - Hypertensive heart disease without heart failure Category: Medical Code(s): I11.9 - Hypertensive heart disease without heart failure (15) Obesity Current visit: No Status: Chronic Qualifiers: Obesity type: due to excess calories Obesity classification: adult class 3 (BMI >= 40) Serious obesity comorbidity presence: without serious comorbidity Body mass index: BMI 40.0-44.9 Qualified Code(s): E66.01 - Morbid (severe) obesity due to excess calories; Z68.41 - Body mass index (BMI) 40.0-44.9, adult Category: Medical Code(s): E66.9 - Obesity, unspecified (16) SOB (shortness of breath) Current visit: No Status: Chronic Category: Medical Code(s): R06.02 - Shortness of breath (17) Osteonecrosis Current visit: Yes Status: Acute Category: Medical Code(s): M87.9 - Osteonecrosis, unspecified (18) Small vessel arterial disease due to type 2 diabetes mellitus Current visit: Yes Status: Acute Category: Medical Code(s): E11.51 - Type 2 diabetes mellitus with diabetic peripheral angiopathy without gangrene (19) 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 Current visit: Yes Status: Acute Category: Medical Code(s): S92.253K - Displaced fracture of navicular [scaphoid] of unspecified foot, subsequent encounter for fracture with nonunion (20) Synovitis of left foot Current visit: Yes Status: Acute Category: Medical Code(s): M65.9 - Synovitis and tenosynovitis, unspecified (21) Lipoma of left lower extremity Current visit: Yes Status: Acute Category: Medical Code(s): D17.24 - [place] n lipomatous neoplasm of skin and subcutaneous tissue of left leg - Assessment and plan all Dx Assessment and Plan for all problems:: Procedure performed, DOS: 04/24/19: 1. Left Charcot reconstruction: triple arthrodesis 2. Left medial column arthodesis 3. Left lateral column arthrodesis 4. Left foot synovectomy 5. Left tendon achilles lengthening 6. Left application of external fixation device 7. Left resection of navicular ostenecrosis (non-union fracture fragmentation) 8. Left repair of tibialis anterior tendon 9. Left soft tissue mass (lipoma) excision 10. Left peroneal tendon debridement Plan: Due to the patient's large body habitus, strict nonweightbearing status and fracture/fall risk she needs a rehab evaluation. Patient lives alone and has no one to help her with activities of daily living. She will not have 24-hour care or frequent family/social check-in's. She does not have a wheelchair, bedside commode, shower chair or hospital bed. She will be evaluated tomorrow by physical therapy and assessed for transitions NWB from bed to bedside commode. Strict nonweightbearing was so will need DME as above. I recommend patient for SNF for postoperative management of comorbidities, patient safety, fall risk, nonweightbearing to the left lower extremity after Charcot reconstruction with application of external fixation device. Patient will also need ex-fix dressing changes by nursing several times per week. Discharge/Plan: Admit per Dr. Freeman for medical mgmt (insulin, IV fluids and blood pressure) and SNF placement. Consult to surgeon, Dr. Reyes for post op pain control, PT evaluation. Patient is to maintain dressing clean dry and intact. MITCH drain mgmt. Ice behind the left knee and left lower extremity with DME assistance (wheelchair). Pain: Wind[place] 7.5/325 1-2 tablets q4h prn. DVT ppx: Lovenox, SCD. Obtain post op films, left calc, ankle and foot, 3 views. PT in the am for gait training and transitions, SNF evaluation. Plan to consult case mgmt for SNF placement, DME (needs wheelchair, bedside commode, shower chair, evaluate for hospital bed). Plan to see patient again in the morning.
[2019-04-24 20:39] LABS: Hematocrit 34.7 % (37.0-47.0); Hemoglobin 10.7 g/dL (12.2-16.2); Lymphocytes # 0.4 K/mm3 (0.7-4.5); Lymphocytes % 5.3 % (10-50); Mean Corpuscular HGB Conc 30.8 g/dL (31.8-35.4); Mean Corpuscular Volume 92.5 fl (81-99); Mean Platelet Volume 7.7 fl (7.4-10.4); Monocytes # 0.1 K/mm3 (0.1-1.0); Monocytes % 1.7 % (1.7-9.3); Neutrophils # 7.5 K/mm3 (1.8-7.8); Neutrophils % 92.9 % (37.0-80.0); Platelet Count 186 K/mm3 (142-424); Red Blood Count 3.75 M/mm3 (4.20-5.40); Red Cell Distribution Width 14.8 % (11.5-17.5); White Blood Count 8.1 K/mm3 (4.8-10.8)
[2019-04-24 21:07] LABS: Albumin/Globulin Ratio 0.8 (1.1-1.8); Anion Gap 14.5 mEq/L (5-15); Bilirubin,Total 0.3 mg/dL (0.2-1.0)
[2019-04-24 22:01] LABS: Lymphocytes % 7 % (10-50); Neutrophils % 93 % (42-76); Total Cells Counted 100
[2019-04-24 22:02] LABS: Anisocytosis 1+
[2019-04-25 06:50] LABS: Eosinophils % 0.2 % (0.1-12.0); Hematocrit 30.3 % (37.0-47.0); Lymphocytes # 0.6 K/mm3 (0.7-4.5); Lymphocytes % 6.4 % (10-50); Mean Corpuscular HGB Conc 31.1 g/dL (31.8-35.4); Mean Platelet Volume 7.8 fl (7.4-10.4); Monocytes # 0.4 K/mm3 (0.1-1.0); Monocytes % 4.4 % (1.7-9.3); Neutrophils # 8.2 K/mm3 (1.8-7.8); Platelet Count 185 K/mm3 (142-424); Red Blood Count 3.26 M/mm3 (4.20-5.40); Red Cell Distribution Width 14.9 % (11.5-17.5); White Blood Count 9.3 K/mm3 (4.8-10.8)
[2019-04-25 07:11] LABS: Albumin Level 2.7 gm/dL (3.4-5.0); Albumin/Globulin Ratio 0.7 (1.1-1.8); Anion Gap 12.5 mEq/L (5-15); Bilirubin,Total 0.3 mg/dL (0.2-1.0); Calcium 8.5 mg/dL (8.5-10.1); Globulin 3.7 gm/dl (1.3-3.2); Total Protein,Serum 6.4 gm/dL (6.4-8.2)
[2019-04-25 07:30] LABS: Hemoglobin 9.4 g/dL (12.2-16.2)
--- NOTE | 2019-04-25 08:06 | Progress Note ---
Subjective Date: 04/25/19 Time: 07:20 Principal diagnosis: L Foot Charcot Interval history: Ms. Huerta is resting comfortably in bed eating breakfast. She denies complaints of pain. She denies vomiting and diarrhea. Ms. Huerta is a 64yr. old diabetic female being admitted for post op pain control and SNF placement after a left charcot reconstruction. Patient has a significant medical history including Coronary Artery Disease, Diabetes Mellitus Type 2, Gastroesophageal Reflux Disease(GERD), Hyperlipidemia, Hypertension, Myocardial Infarction, atypial angina, CAD (Coronary artery disease), abnormal stress test, Bradycardia, dizziness, Gout, and history of Shortness of breath. Patient had cardiac cath with Dr. Gonzalez 02/25/2019. Patient was granted medical clearance by cardiology and Dinorah Peace 03/04/2019. Patient also had a DEXA scan 04/17/19 which showed moderate fracture risk and low vitamin D at 17.4. Due to patients co-morbidities, large body habitus, minimal social support and no one to stay home with her after surgery, she needs PT and SNF placement evaluation. Patient is a fall risk, fracture risk and unable to use crutches, cane. PN: Obj Ex Vital signs: Temp Pulse Resp BP Pulse Ox 98.5 F 69 18 106/46 L 94 L 04/25/19 04:00 04/25/19 04:00 04/25/19 04:00 04/25/19 04:00 04/25/19 04:00 - Constitutional no acute distress - Routine HEENT Exam Head: Present: normocephalic Eye: Present: PERRL - Routine Neck Exam Present: supple - Routine Chest/Breast/Axilla Exam Chest wall: Absent: tenderness - Routine Respiratory Exam Present: accessory muscle use - Routine Cardiovascular Exam Present: RRR - Routine Abdominal Exam Present: soft - Routine Rectal Exam Patient deferred: visual exam - Routine Extremities Exam Present: edema, normal capillary refill. Absent: tenderness - Detailed Lower Extremity Exam Comments: Left lower extremity dressing clean dry and intact. MITCH drain intact with output noted, sanguinous drainage. No evidence of infection in the drain. External fixation device intact to the lower extremity. Cap fill time at baseline. Light touch sensation decreased secondary to nerve block. Motor function intact. No calf or thigh pain noted bilaterally. 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 Status: Acute Current Visit: Yes (3) Osteopenia Status: Acute Current Visit: Yes (4) Risk for falls Status: Acute Current Visit: Yes (5) Diabetic Charct's arthropathy Status: Acute Current Visit: No (6) Bradycardia Status: Chronic Current Visit: No (7) CAD (coronary artery disease) Status: Chronic Current Visit: No (8) Coronary arteriosclerosis Status: Chronic Current Visit: No (9) Dizziness Status: Chronic Current Visit: No (10) Edema Status: Chronic Current Visit: No (11) Foot pain Status: Chronic Current Visit: No (12) HLD (hyperlipidemia) Status: Chronic Current Visit: No (13) HTN (hypertension) Status: Chronic Current Visit: No (14) Hypertensive heart disease Status: Chronic Current Visit: No (15) Obesity Status: Chronic Current Visit: No (16) SOB (shortness of breath) Status: Chronic Current Visit: No (17) Osteonecrosis Status: Acute Current Visit: Yes (18) Small vessel arterial disease due to type 2 diabetes mellitus Status: Acute Current Visit: Yes (19) 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 Left Charcot reconstruction: triple arthrodesis 2. Left medial column arthodesis 3. Left lateral column arthrodesis 4. Left foot synovectomy 5. Left tendon achilles lengthening 6. Left application of external fixation device 7. Left resection of navicular ostenecrosis (non-union fracture fragmentation) 8. Left repair of tibialis anterior tendon 9. Left soft tissue mass (lipoma) excision 10. Left peroneal tendon debridement Plan: Due to the patient's large body habitus, strict nonweightbearing status and fracture/fall risk she needs a rehab evaluation. Patient lives alone and has no one to help her with activities of daily living. She will not have 24-hour care or frequent family/social check-in's. She does not have a wheelchair, bedside commode, shower chair or hospital bed. She will be evaluated today by physical therapy and assessed for transitions NWB from bed to bedside commode. Strict nonweightbearing was so will need DME as above. I recommend patient for SNF for postoperative management of comorbidities, patient safety, fall risk, nonweightbearing to the left lower extremity after Charcot reconstruction with application of external fixation device. Patient will also need ex-fix dressing changes weekly. Discharge/Plan: Patient is to maintain dressing clean dry and intact to LLE. MITCH drain mgmt. Ice behind the left knee and left lower extremity with DME assistance (needs wheelchair). Pain: [place] 7.5/325 1-2 tablets q4h prn. DVT ppx: Jeromy, SCD. PT in the am for gait training and transitions, SNF evaluation. Plan to consult case mgmt for SNF placement, DME (needs wheelchair, bedside commode, shower chair, evaluate for hospital bed). Plan for discharge today if SNF placement denied.
[2019-04-25 09:54] LABS: Lymphocytes % 7 % (10-50); Monocytes % 4 % (2-9); Neutrophils % 89 % (42-76); Total Cells Counted 100
--- NOTE | 2019-04-25 12:26 | Discharge Summary ---
General - General Admission date:: 04/24/19 Discharge date: 04/25/19 HPI HPI: Ms. Huerta is a 64yr. old diabetic female being admitted for post op pain control and SNF placement after a left charcot reconstruction. Patient has a significant medical history including Coronary Artery Disease, Diabetes Mellitus Type 2, Gastroesophageal Reflux Disease(GERD), Hyperlipidemia, Hypertension, Myocardial Infarction, atypial angina, CAD (Coronary artery disease), abnormal stress test, Bradycardia, dizziness, Gout, and history of Shortness of breath. Patient had cardiac cath with Dr. Gonzalez 02/25/2019. Patient was granted medical clearance by cardiology and Dinorah Peace 03/04/2019. Patient also had a DEXA scan 04/17/19 which showed moderate fracture risk and low vitamin D at 17.4 Due to patients co-morbidities, large body habitus, minimal social support and no one to stay home with her after surgery, she needs PT and SNF placement evaluation. Patient is a fall risk, fracture risk and unable to use crutches, cane. Hospital Course Hospital Course: Ms. Richardson is a 64-year-old diabetic female who was admitted 04/24/2019 for postoperative pain control, medical management and PT evaluation for SNF. Patient had a relatively uneventful hospital course and had physical therapy this morning. They recommend either STR or wheelchair with home physical therapy assistance. Had a long discussion with the patient regarding going home versus half-way facility. I explained that it is dependent on the insurance. She does not meet the medical necessity to stay acute inpatient for 3 midnights. Patient is stable from medical standpoint. I explained my concern with the weightbearing status and remaining strict nonweightbearing at home. Rx given for wheelchair. She will follow up weekly at the clinic for wound checks, dressing changes. Order home health care for weekly dressing changes and physical therapy, helping with transitions and nonweightbearing gait training. Objective Vital signs: Temp Pulse Resp BP Pulse Ox 98.3 F 67 18 141/65 H 95 04/25/19 08:00 04/25/19 08:00 04/25/19 08:00 04/25/19 08:00 04/25/19 08:00 no acute distress - *Routine HEENT Exam Head: Present: normocephalic - *Routine Neck Exam Present: supple - *Routine Respiratory Exam Present: accessory muscle use - *Routine Cardiovascular Exam Present: RRR - *Routine Abdominal Exam Present: soft - *Routine Rectal Exam Patient deferred: visual exam - *Routine Exam Patient deferred: external exam - *Routine Extremities Exam Present: edema, normal capillary refill. Absent: tenderness - *Routine Skin Exam Present: intact, dry, warm - *Routine Neurological Exam Present: alert, oriented X3, moving all extremities. Absent: altered mental status - Routine Psychiatric Exam Present: normal affect - Detailed Lower Extremity Exam Comments: Left lower extremity dressing clean dry and intact. MITCH drain intact with output noted, sanguinous drainage. No evidence of infection in the drain. External fixation device intact to the lower extremity. Cap fill time at baseline. Light touch sensation decreased secondary to nerve block. Motor function intact. No calf or thigh pain noted bilaterally. Results Labs on day of discharge: Labs from last 24 hours 04/25/19 04/25/19 04/25/19 11:15 06:42 06:23 WBC RBC Hgb Hct MCV MCH MCHC RDW Plt Count MPV Neut % (Auto) Lymph % (Auto) Graham % (Auto) Eos % (Auto) Baso % (Auto) Neut # (Auto) Lymph # (Auto) Graham # (Auto) Eos # (Auto) Baso # (Auto) Total Counted Neutrophils % (Manual) Lymphocytes % (Manual) Monocytes % (Manual) Platelet Estimate RBC Morphology Anisocytosis Sodium 139 Potassium 4.5 Chloride 108 H Carbon Dioxide 23 Anion Gap 12.5 BUN 34 H Creatinine 1.67 H Estimated Creat Clear 31 Estimated GFR 31 L Est GFR ( Amer) 37 L Glucose 236 H POC Glucose 228 H 234 H Calcium 8.5 Total Bilirubin 0.3 AST 23 ALT 13 D Alkaline Phosphatase 84 Total Protein 6.4 Albumin 2.7 L Globulin 3.7 H Albumin/Globulin Ratio 0.7 L TSH 04/25/19 04/24/19 04/24/19 06:23 20:25 20:25 WBC 9.3 8.1 RBC 3.26 L 3.75 L Hgb 9.4 L D 10.7 L Hct 30.3 L 34.7 L MCV 93.0 92.5 MCH 28.9 28.5 MCHC 31.1 L 30.8 L RDW 14.9 14.8 Plt Count 185 186 MPV 7.8 7.7 Neut % (Auto) 89.0 H 92.9 H Lymph % (Auto) 6.4 L 5.3 L Graham % (Auto) 4.4 1.7 Eos % (Auto) 0.2 0.0 L Baso % (Auto) 0.0 L 0.0 L Neut # (Auto) 8.2 H 7.5 Lymph # (Auto) 0.6 L 0.4 L Graham # (Auto) 0.4 0.1 Eos # (Auto) 0.0 0.0 Baso # (Auto) 0.0 0.0 Total Counted 100 100 Neutrophils % (Manual) 89 H 93 H Lymphocytes % (Manual) 7 L 7 L Monocytes % (Manual) 4 Platelet Estimate Normal Normal RBC Morphology Not Reportable Anisocytosis 1+ Sodium 140 Potassium 4.5 Chloride 106 Carbon Dioxide 24 Anion Gap 14.5 BUN 31 H Creatinine 1.67 H Estimated Creat Clear 31 Estimated GFR 31 L Est GFR ( Amer) 37 L Glucose 236 H POC Glucose Calcium 8.0 L Total Bilirubin 0.3 AST 28 ALT 19 Alkaline Phosphatase 97 Total Protein 7.0 Albumin 3.0 L Globulin 4.0 H Albumin/Globulin Ratio 0.8 L TSH 04/24/19 04/24/19 04/24/19 20:25 20:23 16:45 WBC RBC Hgb Hct MCV MCH MCHC RDW Plt Count MPV Neut % (Auto) Lymph % (Auto) Graham % (Auto) Eos % (Auto) Baso % (Auto) Neut # (Auto) Lymph # (Auto) Graham # (Auto) Eos # (Auto) Baso # (Auto) Total Counted Neutrophils % (Manual) Lymphocytes % (Manual) Monocytes % (Manual) Platelet Estimate RBC Morphology Anisocytosis Sodium Potassium Chloride Carbon Dioxide Anion Gap BUN Creatinine Estimated Creat Clear Estimated GFR Est GFR ( Amer) Glucose POC Glucose 229 H 227 H Calcium Total Bilirubin AST ALT Alkaline Phosphatase Total Protein Albumin Globulin Albumin/Globulin Ratio TSH 1.36 04/24/19 14:14 WBC RBC Hgb Hct MCV MCH MCHC RDW Plt Count MPV Neut % (Auto) Lymph % (Auto) Graham % (Auto) Eos % (Auto) Baso % (Auto) Neut # (Auto) Lymph # (Auto) Graham # (Auto) Eos # (Auto) Baso # (Auto) Total Counted Neutrophils % (Manual) Lymphocytes % (Manual) Monocytes % (Manual) Platelet Estimate RBC Morphology Anisocytosis Sodium Potassium Chloride Carbon Dioxide Anion Gap BUN Creatinine Estimated Creat Clear Estimated GFR Est GFR ( Amer) Glucose POC Glucose 194 H Calcium Total Bilirubin AST ALT Alkaline Phosphatase Total Protein Albumin Globulin Albumin/Globulin Ratio TSH Preliminary micro results at discharge 04/24/19 07:30 Urine Culture - Preliminary Urine,Catheterized Gram Negative Rods DS: Diagnosis - Discharge Diagnosis (1) Charcot's joint, left ankle and foot Status: Acute (2) 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 Status: Acute (3) Osteopenia Status: Acute (4) Risk for falls Status: Acute (5) Diabetic Charct's arthropathy Status: Acute (6) Bradycardia Status: Chronic (7) CAD (coronary artery disease) Status: Chronic (8) Coronary arteriosclerosis Status: Chronic (9) Dizziness Status: Chronic (10) Edema Status: Chronic (11) Foot pain Status: Chronic (12) HLD (hyperlipidemia) Status: Chronic (13) HTN (hypertension) Status: Chronic (14) Hypertensive heart disease Status: Chronic (15) Obesity Status: Chronic (16) SOB (shortness of breath) Status: Chronic (17) Osteonecrosis Status: Acute (18) Small vessel arterial disease due to type 2 diabetes mellitus Status: Acute (19) 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 MITCH drain mgmt. Ice/polar pack behind the left knee. Strict non weight bearing to left lower extremity with DME assistance (needs wheelchair with elevating leg rests). Pain: [place] 7.5/325 1 tablets q4h prn pain. DVT ppx: Lovenox, SCD. DME (needs wheelchair with elevating leg rests, bedside commode, shower chair, evaluate for hospital bed). Home health care: assist with daily of living, PT/OT, strict NWB gait training/ transitions to get her out of bed, eternal fixation device dressing change weekly Dressing change: clean pin sites with chlorhexidine sticks, apply Xeroform around the pin sites followed by 4 x 4's and 2 inch Geoff. Cover external fixation device with Apolinar bandage. Plan for discharge today. Follow up outpatient in one week. - Follow up Plan Follow up with: Inocente Freeman MD [Primary Care Provider] - 1 week (05-03 @ 9:15 AM) Mely Reeys DPM [Staff Physician] - 1 week (05-02 @ 11:00 AM) Disposition: Home Health Service Home Medications: Home Medications Medication Instructions Recorded Confirmed Type Aspirin [Aspirin 81mg chewable 81 mg PO DAILY 08/29/17 04/24/19 History tab] sitagliptin 100 mg tablet 100 mg PO DAILY #30 tab 10/03/17 04/24/19 Rx terazosin 1 mg capsule 1 mg PO HS #30 cap 10/03/17 04/24/19 Rx amlodipine 5 mg tablet 5 mg PO DAILY #30 tab 05/18/18 04/24/19 Rx allopurinol 300 mg tablet 300 mg PO DAILY 30 Days tab 06/18/18 04/24/19 History levothyroxine 25 mcg tablet 25 mcg PO DAILY 30 Days tab 06/18/18 04/24/19 History magnesium oxide 400 mg (241.3 mg 400 mg PO DAILY 30 Days #30 tab 08/27/18 04/24/19 History magnesium) tablet glimepiride 1 mg tablet 1 mg PO BID 09/19/18 04/25/19 History melatonin 5 mg tablet 10 mg PO HS PRN 09/19/18 04/24/19 History colchicine 0.6 mg tablet 1.2 mg PO DAILY 30 Days tab 09/24/18 04/24/19 History gabapentin 300 mg capsule 300 mg PO TID 30 Days #60 cap 02/13/19 04/25/19 H istory Carvedilol [Carvedilol 25mg Tab] 37.5 mg PO BID 04/23/19 04/24/19 History Losartan/Hydrochlorothiazide 1 tab PO DAILY 04/23/19 04/24/19 History [Hyzaar 100-25 Tablet] Enoxaparin Sodium [Lovenox 40 mg SQ BID #40 syringe 04/25/19 Rx 40mg/0.4mL syringe] Ergocalciferol (Vitamin D2) 50,000 unit PO DIRECTED 04/25/19 04/25/19 History [Vitamin D2] Ezetimibe 10 mg PO DAILY 04/25/19 04/25/19 History Hydrocodone/Acetaminophen [Lortab 1 tab PO Q4HP PRN #30 tab 04/25/19 Rx 7.5/325mg tablet] Ranolazine [Ranolazine ER] 1,000 mg PO BID 04/25/19 04/25/19 History ondansetron 4 mg disintegrating 4 mg PO Q6H #30 tab 04/25/19 Rx tablet Prescriptions/Medication Reconciliation: New Hydrocodone/Acetaminophen [Lortab 7.5/325mg tablet] 1 tab PO Q4HP PRN #30 tab PRN Reason: Moderate Pain Enoxaparin Sodium [Lovenox 40mg/0.4mL syringe] 40 mg SQ BID #40 syringe Continued sitagliptin 100 mg tablet 100 mg PO DAILY #30 tab terazosin 1 mg capsule 1 mg PO HS #30 cap amlodipine 5 mg tablet 5 mg PO DAILY #30 tab levothyroxine 25 mcg tablet 25 mcg PO DAILY 30 Days tab magnesium oxide 400 mg (241.3 mg magnesium) tablet 400 mg PO DAILY 30 Days #30 tab colchicine 0.6 mg tablet 1.2 mg PO DAILY 30 Days tab gabapentin 300 mg capsule 300 mg PO TID 30 Days #60 cap allopurinol 300 mg tablet 300 mg PO DAILY 30 Days tab glimepiride 1 mg tablet 1 mg PO BID melatonin 5 mg tablet 10 mg PO HS PRN PRN Reason: Sleep Losartan/Hydrochlorothiazide [Hyzaar 100-25 Tablet] 1 tab PO DAILY Aspirin [Aspirin 81mg chewable tab] 81 mg PO DAILY Carvedilol [Carvedilol 25mg Tab] 37.5 mg PO BID No Action ondansetron 4 mg disintegrating tablet 4 mg PO Q6H #30 tab Ergocalciferol (Vitamin D2) [Vitamin D2] 50,000 unit PO DIRECTED Ezetimibe 10 mg PO DAILY Ranolazine [Ranolazine ER] 1,000 mg PO BID - Problem Reconciliation Problems Reviewed?: Yes
== END 2019-04-25 18:00 | disposition home health service (06) ==
PROVIDERS: ADMIT Family Medicine; ATTEND Family Medicine
DX: E66.01 Morbid (severe) obesity due to excess calories; S92.255 Nondisplaced fracture of navicular [scaphoid] of left foot; D17.24 Benign lipomatous neoplasm of skin and subcutaneous tissue of left leg; S92.252K Displaced fracture of navicular [scaphoid] of left foot, subsequent encounter for fracture with nonunion; I11.9 Hypertensive heart disease without heart failure; M89.772 Major osseous defect, left ankle and foot; E11.610 Type 2 diabetes mellitus with diabetic neuropathic arthropathy; N39.0 Urinary tract infection, site not specified; M87.875 Other osteonecrosis, left foot; Z91.81 History of falling; I25.118 Atherosclerotic heart disease of native coronary artery with other forms of angina pectoris; Z68.42 Body mass index [BMI] 45.0-49.9, adult
CPT/HCPCS: 36415; 73610; 73620; 73630; 76000; 80053; 81001; 82962; 84443; 85007; 85025; 87086; 87088; 87186; 88304; 96374; 97161; C1713; C1762; C1776; G0378; J0131; J2405

== ENCOUNTER → 2019-05-29 12:13 | Outpatient (CLI) | payer MEDICARE, MEDICAID, SELFPAY ==
--- NOTE | 2019-05-29 12:21 | XR_ITS ---
PROCEDURE: XR ANKLE LT MIN 3V CLINICAL INDICATION: post-op Follow-up triple arthrodesis COMPARISON: XR ANKLE WT BEARING LT MIN 3V from 04/17/2019 XR ANKLE WT BEARING RT MIN 3V from 04/17/2019 XR FOOT LT MIN 3V from 04/24/2019 XR FOOT LT MIN 3V from 05/29/2019 FINDINGS: External fixator remains in place with stabilizing wires at the mid distal tibia and in the hindfoot. The tibiotalar joint has an unremarkable appearance. No change in the previously placed surgical hardware with posterior talocalcaneal screw and the long lag screw extending from the distal aspect of the 1st metatarsal into the medial cuneiform the navicular and into the talus. Much of the bony elements are obscured by the overlying fixator device. The bones that are visible do appear in good alignment. IMPRESSION: No change in the arthrodesis of the hindfoot and midfoot as described above with external fixator device in place Dictated by: Laron Jimenez MD 05/30/2019 11:26 Electronically signed by Laron Jimenez MD in [place] 05/30/2019 11:26
== END ==
PROVIDERS: PCP Family Medicine; Visit Provider Podiatrist
DX: E11.610 Type 2 diabetes mellitus with diabetic neuropathic arthropathy (principal); Z98.890 Other specified postprocedural states; M79.672 Pain in left foot
CPT/HCPCS: 73610; 73630

== ENCOUNTER → 2019-07-03 11:07 | Outpatient (CLI) | payer MEDICARE, MEDICAID, SELFPAY ==
[2019-07-03 11:23] LABS: Basophils % 0.5 % (0.1-2.0); Eosinophils # 0.2 K/mm3 (0.0-0.4); Eosinophils % 2.5 % (0.1-12.0); Hematocrit 36.2 % (37.0-47.0); Hemoglobin 11.2 g/dL (12.2-16.2); Lymphocytes # 1.4 K/mm3 (0.7-4.5); Lymphocytes % 24.4 % (10-50); Mean Corpuscular HGB Conc 30.8 g/dL (31.8-35.4); Mean Corpuscular Hemoglobin 27.6 pg (27.0-31.2); Mean Corpuscular Volume 89.6 fl (81-99); Mean Platelet Volume 7.6 fl (7.4-10.4); Monocytes # 0.2 K/mm3 (0.1-1.0); Monocytes % 3.8 % (1.7-9.3); Neutrophils % 68.9 % (37.0-80.0); Platelet Count 199 K/mm3 (142-424); Red Blood Count 4.04 M/mm3 (4.20-5.40); Red Cell Distribution Width 15.3 % (11.5-17.5); White Blood Count 5.9 K/mm3 (4.8-10.8)
[2019-07-03 12:07] LABS: Hemoglobin A1C 6.6 % (0.0-7.0)
[2019-07-03 12:19] LABS: Erythrocyte Sedimentation Rate > 140 mm/hr (0-30)
[2019-07-03 13:01] LABS: Alanine Aminotransferase 18 U/L (12-78); Albumin Level 3.4 gm/dL (3.4-5.0); Albumin/Globulin Ratio 0.9 (1.1-1.8); Alkaline Phosphatase 117 U/L (46-116); Anion Gap 14.6 mEq/L (5-15); Aspartate Amino Transferase 26 U/L (15-37); Bilirubin,Total 0.2 mg/dL (0.2-1.0); Blood Urea Nitrogen 29 mg/dL (7-18); C-Reactive Protein < 0.2 mg/dL (0.0-0.9); Carbon Dioxide 27 mmol/L (21.0-32.0); Chloride 106 mmol/L (98-107); Creatinine,Serum 1.75 mg/dL (0.55-1.02); Estimated Glomerular Filt Rate 29 ml/min (>60); GFR (African American) 35 ML/MIN (>60); Globulin 3.9 gm/dl (1.3-3.2); Glucose 143 mg/dL (74-106); Potassium 4.6 mmoL/L (3.5-5.1); Sodium 143 mmol/L (136-145); Total Protein,Serum 7.3 gm/dL (6.4-8.2)
== END ==
PROVIDERS: Visit Provider Nurse Practitioner
DX: M14.672 Charcot's joint, left ankle and foot (principal); Z98.890 Other specified postprocedural states; Z79.899 Other long term (current) drug therapy
CPT/HCPCS: 36415; 80053; 83036; 85025; 85651; 86140

== ENCOUNTER → 2019-07-10 10:03 | Outpatient (CLI) | payer MEDICARE, MEDICAID, SELFPAY ==
--- NOTE | 2019-07-10 10:13 | XR_ITS ---
PROCEDURE: XR FOOT LT MIN 3V CLINICAL INDICATION: post op Follow-up surgery COMPARISON: XR FOOT WT BEARING RT 3V from 04/17/2019 XR FOOT LT 2V from 04/24/2019 XR FOOT LT MIN 3V from 04/24/2019 XR FOOT LT MIN 3V from 05/29/2019 XR ANKLE LT MIN 3V from 07/10/2019 FINDINGS: External fixator remains in place obscuring much of the bony structures. The skin clips are also once again noted. The the external fixator is in the mid lower tib fib region as well as at the hind and midfoot area. No change in the previously placed surgical hardware with posterior talocalcaneal screw and long lag screw extending from the distal aspect of the 1st metatarsal into the medial cuneiform the navicular and into the talus. As well as the additional lag screw extending from the mid calcaneal region into the cuboid and proximal aspect of the 4th metatarsal. IMPRESSION: Good alignment with external fixator in place status post arthrodesis of the hind and midfoot as described above Dictated by: Laron Jimenez MD 07/10/2019 16:37 Electronically signed by Laron Jimenez MD in [place] 07/10/2019 16:37
== END ==
PROVIDERS: PCP Family Medicine; Visit Provider Podiatrist
DX: Z98.890 Other specified postprocedural states (principal); M14.672 Charcot's joint, left ankle and foot
CPT/HCPCS: 73610; 73630

== ENCOUNTER → 2019-08-08 10:04 | Outpatient (CLI) | payer MEDICARE, MEDICAID, SELFPAY ==
--- NOTE | 2019-08-08 10:10 | XR_ITS ---
PROCEDURE: XR ANKLE WT BEARING LT MIN 3V CLINICAL INDICATION: post-op Follow-up surgery COMPARISON: XR ANKLE LT MIN 3V from 04/24/2019 XR ANKLE LT MIN 3V from 05/29/2019 XR ANKLE LT MIN 3V from 07/10/2019 XR FOOT LT MIN 3V from 07/19/2019 XR ANKLE LT MIN 3V from 07/19/2019 XR FOOT WT BEARING LT 3V from 08/08/2019 FINDINGS: No change hindfoot and midfoot fusion with talocalcaneal screw through the posterior subtalar joint. That joint space is still visible. Long screw from the distal aspect of the 1st metatarsal into the medial cuneiform navicular and talus. The talonavicular joint space appears fused. Long screw from the lateral aspect of the calcaneus into the cuboid and 2nd metatarsal. There is diffuse osteopenia of the midfoot. There is good alignment. IMPRESSION: Good alignment status post mid and hindfoot fusion Dictated by: Laron Jimenez MD 08/08/2019 13:33 Electronically signed by Laron Jimenez MD in [place] 08/08/2019 13:33
== END ==
PROVIDERS: PCP Family Medicine; Visit Provider Podiatrist
DX: M14.672 Charcot's joint, left ankle and foot (principal); Z98.890 Other specified postprocedural states
CPT/HCPCS: 73610; 73630

== ENCOUNTER → 2019-08-20 11:48 | Outpatient (CLI) | payer MEDICARE, MEDICAID, SELFPAY ==
--- NOTE | 2019-08-20 11:57 | XR_ITS ---
PROCEDURE: XR FOOT WT BEARING LT 3V CLINICAL INDICATION: post-op COMPARISON: XR FOOT LT MIN 3V from 05/29/2019 XR FOOT LT MIN 3V from 07/10/2019 XR FOOT LT MIN 3V from 07/19/2019 XR FOOT WT BEARING LT 3V from 08/08/2019 FINDINGS: There has been no significant change in previously described surgical findings associated with hindfoot and midfoot fusion with metallic hardware in place. Overall bony alignment and positioning is not significantly changed over the interval. There is disuse osteopenia. Calcaneal spurring is unchanged. There has been an interval increase in diffuse soft tissue swelling over the dorsum of the foot. IMPRESSION: No change in overall bony alignment and positioning status post fusion. Dictated by: Aldo Ford 08/20/2019 12:49 Electronically signed by Aldo Ford in [place] 08/20/2019 12:49
== END ==
PROVIDERS: PCP Family Medicine; Visit Provider Podiatrist
DX: Z98.890 Other specified postprocedural states (principal); M14.672 Charcot's joint, left ankle and foot
CPT/HCPCS: 73630

== ENCOUNTER → 2019-08-23 12:27 | Outpatient (CLI) | payer MEDICARE, MEDICAID, SELFPAY ==
[2019-08-23 12:30] LABS: Microscopic, Urine URINE MICROSCOPIC (MICROSCOPIC)
[2019-08-23 14:41] LABS: Appearance,Urine CLEAR (Clear); Bilirubin,Urine Negative (Negative); Blood, Urine Negative (Negative); Color,Urine YELLOW (Yellow); Glucose,Urine (UA) Negative (Negative); Ketones,Urine Negative (Negative); Leukocyte Esterase,Urine Negative (Negative); Nitrate,Urine Negative (Negative); Protein,Urine 2+ (Negative); Specific Gravity, Urine >= 1.030 (1.005-1.030); Urobilinogen,Urine 0.2 EU/dl (0.2)
[2019-08-23 15:04] LABS: Amorphous Sediment,Urine 1+ /lpf; Bacteria,Urine Trace /lpf; RBC,Urine Occasional #/hpf (0-3); Squamous Epithelial Cell,Urine 20-50 #/hpf (0-5)
== END ==
PROVIDERS: Visit Provider Family Medicine
DX: N18.9 Chronic kidney disease, unspecified (principal); R82.90 Unspecified abnormal findings in urine
CPT/HCPCS: 81001; 87086

== ENCOUNTER → 2019-11-14 09:10 | Outpatient (CLI) | payer MEDICARE, MEDICAID, SELFPAY ==
--- NOTE | 2019-11-14 09:14 | XR_ITS ---
PROCEDURE: XR FOOT WT BEARING LT 3V CLINICAL INDICATION: postop views COMPARISON: [id number] XR foot wt bearing LT 3V from 09/24/2018 XR FOOT LT MIN 3V from 04/24/2019 XR FOOT LT MIN 3V from 07/10/2019 XR FOOT LT MIN 3V from 07/19/2019 XR FOOT WT BEARING LT 3V from 08/08/2019 XR FOOT WT BEARING LT 3V from 08/20/2019 FINDINGS: A long screws once again noted from the distal aspect of the 1st metatarsal through the navicular into the talus along with additional screws from the posterior inferior calcaneus into the talus and from the lateral calcaneus into the cuboid and 4th metatarsal. These are not significantly changed. No evidence of hardware fracture. There is ill definition of the bones of the midfoot with diffuse osteopenia. There is good alignment. Old navicular fracture noted. IMPRESSION: With good alignment with postsurgical changes and diffuse osteopenia as described above Dictated by: Laron Jimenez MD 11/14/2019 13:03 Electronically signed by Laron Jimenez MD in [place] 11/14/2019 13:03
== END ==
PROVIDERS: PCP Family Medicine; Visit Provider Podiatrist
DX: Z98.890 Other specified postprocedural states (principal); M14.672 Charcot's joint, left ankle and foot
CPT/HCPCS: 73630

== ENCOUNTER → 2019-11-26 09:13 | Outpatient (CLI) | payer MEDICARE, MEDICAID, SELFPAY ==
--- NOTE | 2019-11-26 09:16 | XR_ITS ---
PROCEDURE: XR FOOT WT BEARING LT 3V CLINICAL INDICATION: post-op, charcot Postop Charcot joint surgery with pain and swelling COMPARISON: XR FOOT LT MIN 3V from 07/19/2019 XR FOOT WT BEARING LT 3V from 08/08/2019 XR FOOT WT BEARING LT 3V from 08/20/2019 XR FOOT WT BEARING LT 3V from 11/14/2019 FINDINGS: There is diffuse osteopenia and postsurgical changes with fusion of the midfoot and the talocalcaneal joint as recently described on 11/14/2019 with no significant change in the bony hardware. There is diffuse osteopenia of the midfoot. There is good alignment. There is diffuse soft tissue swelling. Generalized vascular calcification also noted. IMPRESSION: Overall no significant change status post mid and hindfoot fusion with diffuse osteopenia, diffuse osteoarthritic change with good alignment and diffuse soft tissue swelling Dictated by: Laron Jimenez MD 11/26/2019 10:45 Electronically signed by Laron Jimenez MD in [place] 11/26/2019 10:45
--- NOTE | 2019-11-26 09:16 | XR_ITS ---
PROCEDURE: XR FOOT WT BEARING RT 3V CLINICAL INDICATION: post-op, charcot Simulated weight-bearing COMPARISON: XR FOOT WT BEARING RT 3V from 04/17/2019 XR FOOT LT MIN 3V from 07/19/2019 XR FOOT WT BEARING LT 3V from 08/08/2019 XR FOOT WT BEARING LT 3V from 08/20/2019 XR FOOT WT BEARING LT 3V from 11/14/2019 FINDINGS: There is a prominent calcaneal spur measures approximately 19 mm. Small enthesophyte is present at the Achilles insertion. There is generalized vascular calcification. There is mild soft tissue swelling of the foot. A well-circumscribed cystic lesion involves the navicular laterally measuring approximately 15 mm. Osteoarthritic changes are present at the talonavicular and navicular cuneiform joint as well as the metatarsal tarsal junction. There are osteoarthritic changes of the ankle joint as well no pes planus. No convincing evidence of osteomyelitis. The cystic lesion in the navicular was present on 04/17/2019 and is not significantly changed IMPRESSION: Overall no significant change in the osteoarthritic changes of the foot and ankle with subarticular cystic change of the navicular Dictated by: Laron Jimenez MD 11/26/2019 10:42 Electronically signed by Laron Jimenez MD in [place] 11/26/2019 10:42
== END ==
PROVIDERS: PCP Family Medicine; Visit Provider Podiatrist
DX: M14.672 Charcot's joint, left ankle and foot (principal); Z98.890 Other specified postprocedural states
CPT/HCPCS: 73630

== ENCOUNTER → 2020-01-13 09:18 | Outpatient (CLI) | payer MEDICARE, MEDICAID, SELFPAY ==
[2020-01-13 09:28] LABS: Microscopic, Urine URINE MICROSCOPIC (MICROSCOPIC)
[2020-01-13 10:18] LABS: Appearance,Urine CLEAR (Clear); Basophils % 0.5 % (0.1-2.0); Bilirubin,Urine Negative (Negative); Blood, Urine TRACE-L (Negative); Color,Urine YELLOW (Yellow); Eosinophils # 0.2 K/mm3 (0.0-0.4); Eosinophils % 3.2 % (0.1-12.0); Glucose,Urine (UA) Negative (Negative); Hematocrit 37.7 % (37.0-47.0); Hemoglobin 12.4 g/dL (12.2-16.2); Ketones,Urine Negative (Negative); Leukocyte Esterase,Urine Negative (Negative); Lymphocytes # 1.9 K/mm3 (0.7-4.5); Lymphocytes % 34.1 % (10-50); Mean Corpuscular HGB Conc 32.9 g/dL (31.8-35.4); Mean Corpuscular Hemoglobin 29.1 pg (27.0-31.2); Mean Corpuscular Volume 88.5 fl (81-99); Mean Platelet Volume 7.1 fl (7.4-10.4); Monocytes # 0.2 K/mm3 (0.1-1.0); Monocytes % 3.5 % (1.7-9.3); Neutrophils # 3.3 K/mm3 (1.8-7.8); Neutrophils % 58.8 % (37.0-80.0); Nitrate,Urine Negative (Negative); PH,Urine 5.5 (5.0-8.5); Platelet Count 175 K/mm3 (142-424); Protein,Urine 2+ (Negative); Red Blood Count 4.26 M/mm3 (4.20-5.40); Specific Gravity, Urine 1.025 (1.005-1.030); Urobilinogen,Urine 0.2 EU/dl (0.2); White Blood Count 5.5 K/mm3 (4.8-10.8)
--- NOTE | 2020-01-13 10:18 | XR_ITS ---
PROCEDURE: XR ANKLE WT BEARING RT MIN 3V CLINICAL INDICATION: post op views Pain COMPARISON: [id number] XR foot wt bearing RT 3V from 06/18/2018 XR ANKLE LT MIN 3V from 05/29/2019 XR ANKLE LT MIN 3V from 07/10/2019 XR ANKLE LT MIN 3V from 07/19/2019 XR FOOT WT BEARING RT 3V from 01/13/2020 FINDINGS: Mild generalized soft tissue swelling. Minimal hypertrophic changes are present at the tip of the medial malleolus. No acute fracture or dislocation is evident. Prominent calcaneal spurs noted. Cystic changes of the navicular are present at 10 mm IMPRESSION: Soft tissue swelling with mild degenerative changes. 1 cm navicular cystic lesion Dictated by: Laron Jimenez MD 01/13/2020 16:28 Electronically signed by Laron Jimenez MD in [place] 01/13/2020 16:28
--- NOTE | 2020-01-13 10:18 | XR_ITS ---
PROCEDURE: XR FOOT WT BEARING RT 3V CLINICAL INDICATION: post op views Pain COMPARISON: XR FOOT WT BEARING LT 3V from 08/20/2019 XR FOOT WT BEARING LT 3V from 11/14/2019 XR FOOT WT BEARING LT 3V from 11/26/2019 XR FOOT WT BEARING RT 3V from 11/26/2019 FINDINGS: There are mild osteoarthritic changes of the talonavicular and navicular cuneiform joint. A 1 cm cystic lesion involves the navicular unchanged. Prominent calcaneal spur is once again noted unchanged. There is some generalized vascular calcification. Small osteophyte is present at the anterior aspect of the distal tibia with triangular-shaped calcific density at this area which could be due to an old avulsion fracture or osteophyte. No acute fracture or dislocation. No lytic or blastic changes. Other findings:None. IMPRESSION: Overall no significant change with degenerative changes and cyst of the navicular as described above Dictated by: Laron Jimenez MD 01/13/2020 16:30 Electronically signed by Laron Jimenez MD in [place] 01/13/2020 16:30
--- NOTE | 2020-01-13 10:18 | XR_ITS ---
PROCEDURE: XR ANKLE WT BEARING LT MIN 3V CLINICAL INDICATION: post op views Follow-up surgery/pain COMPARISON: XR ANKLE LT MIN 3V from 05/29/2019 XR ANKLE LT MIN 3V from 07/10/2019 XR ANKLE LT MIN 3V from 07/19/2019 XR ANKLE WT BEARING LT MIN 3V from 08/08/2019 FINDINGS: The ankle joint has an unremarkable appearance. There is a mild hypertrophic change of the distal aspect of the lateral malleolus and medial malleolus. Lucencies are noted in the tibia and fibula from prior cage external fixator. There is mild soft tissue swelling medially and laterally IMPRESSION: Postsurgical change with soft tissue swelling. No acute finding Dictated by: Laron Jimenez MD 01/13/2020 16:35 Electronically signed by Laron Jimenez MD in [place] 01/13/2020 16:35
--- NOTE | 2020-01-13 10:18 | XR_ITS ---
PROCEDURE: XR FOOT WT BEARING LT 3V CLINICAL INDICATION: post op views Follow-up arthrodesis COMPARISON: XR ANKLE LT MIN 3V from 07/19/2019 XR ANKLE WT BEARING LT MIN 3V from 08/08/2019 XR FOOT WT BEARING LT 3V from 08/20/2019 XR FOOT WT BEARING LT 3V from 11/14/2019 XR FOOT WT BEARING LT 3V from 11/26/2019 XR FOOT WT BEARING RT 3V from 11/26/2019 XR ANKLE WT BEARING LT MIN 3V from 01/13/2020 FINDINGS: Status post talocalcaneal, talar navicular cuneiform and 1st metatarsal, calcaneocuboid and 4th metatarsal arthrodesis with screws in place as before. There is generalized osteopenia of the the midfoot with good alignment and no obvious orthopedic complication. Osteoarthritic changes are present involving the midfoot IMPRESSION: No change arthrodesis with moderate midfoot osteopenia as described above Dictated by: Laron Jimenez MD 01/13/2020 16:38 Electronically signed by Laron Jimenez MD in [place] 01/13/2020 16:38
[2020-01-13 10:30] LABS: Bacteria,Urine 2+ /lpf; Mucus,Urine Trace /lpf
[2020-01-13 10:39] LABS: Creatinine,Urine Random 76 mg/dL (Not Estab.)
[2020-01-13 10:53] LABS: Albumin Level 4.4 g/dl (3.5-5.0); Anion Gap 14.6 mEq/L (5-15); Blood Urea Nitrogen 21 mg/dl (7-17); Calcium 9.9 mg/dl (8.4-10.2); Carbon Dioxide 28 mmol/L (22.0-30.0); Chloride 103 mmol/L (98-107); Estimated Glomerular Filt Rate 30 ml/min (>60); GFR (African American) 36 ML/MIN (>60); Glucose 147 mg/dl (74-100); Phosphorous 3.5 mg/dl (2.5-4.5); Potassium 4.6 mmoL/L (3.5-5.1); Sodium 141 mmol/L (136-145)
[2020-01-13 11:05] LABS: Intact Parathyroid Hormone 119.7 pg/mL (7.5-53.5)
[2020-01-13 11:11] LABS: 25-OH Vitamin D, Total 34.2 ng/mL (30-100)
== END ==
PROVIDERS: PCP Family Medicine; Referring Provider Podiatrist; Visit Provider Internal Medicine Nephrology
DX: Z98.890 Other specified postprocedural states (principal); N18.3 Chronic kidney disease, stage 3 (moderate); R82.90 Unspecified abnormal findings in urine
CPT/HCPCS: 36415; 73610; 73630; 80069; 81001; 82306; 82570; 83970; 84155; 85025; 87086

== ENCOUNTER → 2020-04-01 10:43 | Outpatient (CLI) | payer MEDICARE, MEDICAID, SELFPAY ==
--- NOTE | 2020-04-01 10:46 | MM_ITS ---
PROCEDURE: MM DIG SCREENING MAMM BI W/CAD Digital Breast Tomosynthesis Included CLINICAL INDICATION: SCREENING There is a history of breast cancer in the patient's sister COMPARISON: MG DMSB DIGITAL MAMM-SCREEN BILATERAL from 09/24/2012 MG DMSB DIG MAMM-SCREEN KIM W/CAD from 05/09/2017 MG DIG MAMM-SCREEN KIM from 12/13/2018 TECHNIQUE: Standard CC and MLO images and 3D Tomosynthesis was obtained. R2 CAD reviewed. FINDINGS: The breasts are composed primarily of fat with moderate scattered fibroglandular densities throughout each breast. There is minimal scattered arterial calcification in each breast. There are benign-appearing micro and macrocalcifications in each breast. There is no suspicious lesion and no suspicious microcalcifications. IMPRESSION: Fibrofatty parenchyma with no suspicious lesions seen BI-RAD Category: 2 Benign Finding(s) FOLLOW-UP: 1YR 1 Year Follow-up (A letter has been sent to the patient regarding results of the study.) Dictated by: Dr. Randy Ace MD 04/02/2020 13:33 Dr. Randy Ace MD in [place] 04/02/2020 13:33
== END ==
PROVIDERS: PCP Family Medicine; Visit Provider Family Medicine
DX: Z12.31 Encounter for screening mammogram for malignant neoplasm of breast (principal)
CPT/HCPCS: 77063; 77067

== ENCOUNTER → 2020-05-18 11:30 | Outpatient (CLI) | payer MEDICARE, MEDICAID, SELFPAY ==
--- NOTE | 2020-05-18 11:35 | XR_ITS ---
PROCEDURE: XR FOOT WT BEARING LT 3V CLINICAL INDICATION: foot pain Postsurgical changes, follow-up surgery COMPARISON: CR XR ANKLE LT MIN 3V from 07/19/2019 CR XR ANKLE WT BEARING LT MIN 3V from 08/08/2019 CR XR FOOT WT BEARING LT 3V from 11/26/2019 CR XR FOOT WT BEARING RT 3V from 11/26/2019 CR XR FOOT WT BEARING LT 3V from 01/13/2020 CR XR ANKLE WT BEARING RT MIN 3V from 01/13/2020 CR XR FOOT WT BEARING RT 3V from 01/13/2020 FINDINGS: There postsurgical changes once again noted. No change in the talocalcaneal, calcaneocuboid, talonavicular cuneiform and 1st metatarsal screws. The the subtalar joint space is still visible. The talonavicular joint appears fused as does the a navicular cuneiform and 1st metatarsal tarsal junction. The calcaneocuboid also appears partially fused. There is hammertoe deformity prominent calcaneal spur and an Achilles enthesophyte. Mild hypertrophic/degenerative changes are present at the medial and lateral malleolar region distally. The talar dome has an unremarkable appearance. IMPRESSION: Extensive foot surgery with fusion as detailed above overall not significantly changed. The subtalar joint does not appear fused. Dictated by: Laron Jimenez MD 05/18/2020 16:42 Laron Jimenez MD in [place] 05/18/2020 16:42
--- NOTE | 2020-05-18 11:35 | XR_ITS ---
PROCEDURE: XR FOOT WT BEARING RT 3V CLINICAL INDICATION: foot pain COMPARISON: CR XR FOOT WT BEARING LT 3V from 11/26/2019 CR XR FOOT WT BEARING RT 3V from 11/26/2019 CR XR FOOT WT BEARING LT 3V from 01/13/2020 CR XR FOOT WT BEARING RT 3V from 01/13/2020 CR XR ANKLE WT BEARING RT MIN 3V from 05/18/2020 FINDINGS: No fracture or dislocation. No lytic or blastic change. There is normal mineralization. There are degenerative changes of the midfoot at the tarsometatarsal junction and at the talonavicular and navicular cuneiform junction. Prominent cystic changes are once again noted involving the lateral aspect of the navicular. There is a prominent calcaneal spur and an Achilles enthesophyte. At the ankle there are hypertrophic changes at the distal fibula and medial malleolar region with osteophyte at the anterior aspect of the distal tibia. There is generalized vascular calcification. Other findings:None. IMPRESSION: Degenerative changes as described above. No change in the cystic changes of the navicular. No acute finding Dictated by: Laron Jimenez MD 05/18/2020 16:36 Laron Jimenez MD in [place] 05/18/2020 16:36
== END ==
PROVIDERS: PCP Family Medicine; Visit Provider Nurse Practitioner
DX: M14.672 Charcot's joint, left ankle and foot; Z98.890 Other specified postprocedural states; M25.572 Pain in left ankle and joints of left foot; M25.571 Pain in right ankle and joints of right foot; M79.672 Pain in left foot; M79.671 Pain in right foot
CPT/HCPCS: 73610; 73630

== ENCOUNTER → 2020-05-26 10:58 | Outpatient (CLI) | payer MEDICARE, MEDICAID, SELFPAY ==
[2020-05-26 11:04] LABS: Microscopic, Urine URINE MICROSCOPIC (MICROSCOPIC)
[2020-05-26 11:33] LABS: Basophils % 0.3 % (0.1-2.0); Eosinophils # 0.1 K/mm3 (0.0-0.4); Eosinophils % 2.5 % (0.1-12.0); Hematocrit 37.4 % (37.0-47.0); Hemoglobin 12.6 g/dL (12.2-16.2); Lymphocytes # 1.8 K/mm3 (0.7-4.5); Lymphocytes % 31.6 % (10-50); Mean Corpuscular HGB Conc 33.7 g/dL (31.8-35.4); Mean Corpuscular Hemoglobin 30.4 pg (27.0-31.2); Mean Corpuscular Volume 90.1 fl (81-99); Mean Platelet Volume 6.8 fl (7.4-10.4); Monocytes # 0.2 K/mm3 (0.1-1.0); Monocytes % 4.3 % (1.7-9.3); Neutrophils # 3.5 K/mm3 (1.8-7.8); Neutrophils % 61.4 % (37.0-80.0); Platelet Count 178 K/mm3 (142-424); Red Blood Count 4.15 M/mm3 (4.20-5.40); Red Cell Distribution Width 15.6 % (11.5-17.5); White Blood Count 5.7 K/mm3 (4.8-10.8)
[2020-05-26 11:51] LABS: Appearance,Urine CLEAR (Clear); Bilirubin,Urine Negative (Negative); Blood, Urine TRACE-L (Negative); Color,Urine YELLOW (Yellow); Glucose,Urine (UA) Negative (Negative); Ketones,Urine Negative (Negative); Leukocyte Esterase,Urine Negative (Negative); Nitrate,Urine Negative (Negative); PH,Urine 5.5 (5.0-8.5); Protein,Urine 2+ (Negative); Specific Gravity, Urine >= 1.030 (1.005-1.030); Urobilinogen,Urine 0.2 EU/dl (0.2)
[2020-05-26 12:05] LABS: Creatinine,Urine Random 109 mg/dL (Not Estab.)
[2020-05-26 12:07] LABS: Chloride 105 mmol/L (98-107); Potassium 4.8 mmoL/L (3.5-5.1); Sodium 140 mmol/L (136-145)
[2020-05-26 12:08] LABS: Albumin Level 4.3 g/dl (3.5-5.0)
[2020-05-26 12:10] LABS: Anion Gap 12.8 mEq/L (5-15); Blood Urea Nitrogen 20 mg/dl (7-17); Calcium 9.7 mg/dl (8.4-10.2); Carbon Dioxide 27 mmol/L (22.0-30.0); Estimated Glomerular Filt Rate 35 ml/min (>60); GFR (African American) 42 ML/MIN (>60); Glucose 153 mg/dl (74-100); Phosphorous 3.8 mg/dl (2.5-4.5)
[2020-05-26 12:38] LABS: RBC,Urine Occasional #/hpf (0-3); Squamous Epithelial Cell,Urine Occasional #/hpf (0-5)
== END ==
PROVIDERS: Visit Provider Internal Medicine Nephrology
DX: N18.30 Chronic kidney disease, stage 3 unspecified (principal)
CPT/HCPCS: 36415; 80069; 81001; 82570; 84155; 85025

== ENCOUNTER → 2020-06-01 12:36 | Outpatient (POV) | payer MEDICARE, MEDICAID, SELFPAY | PROVIDERS: Visit Provider Internal Medicine Nephrology | DX: Z00.00 Encounter for general adult medical examination without abnormal findings (principal) ==

== ENCOUNTER → 2020-08-06 12:07 | Outpatient (CLI) | payer MEDICARE, MEDICAID, SELFPAY ==
--- NOTE | 2020-08-06 12:16 | XR_ITS ---
PROCEDURE: XR THORACIC SPINE 3V CLINICAL INDICATION: Dorsalgia, unspecified COMPARISON: CR TSP2 THORACIC SPINE AP LAT-2VIEW from 02/13/2015 FINDINGS: No fracture or dislocation. No lytic or blastic change. There is normal mineralization. There is mild upper thoracic curvature convex right and lower thoracic curvature convex left. 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 No acute fracture or dislocation is evident. No lytic or blastic change. Other findings:None. IMPRESSION: Degenerative changes of the thoracic spine which have progressed compared to the previous exam. Dictated by: Laron Jimenez MD 08/06/2020 17:21 Laron Jimenez MD in [place] 08/06/2020 17:21
== END ==
PROVIDERS: PCP Family Medicine; Visit Provider Family Medicine
DX: M54.6 Pain in thoracic spine (principal)
CPT/HCPCS: 72072

== ENCOUNTER → 2020-11-11 10:18 | Outpatient (CLI) | payer MEDICARE, MEDICAID, SELFPAY ==
--- NOTE | 2020-11-11 10:27 | XR_ITS ---
PROCEDURE: XR FOOT WT BEARING LT 3V CLINICAL INDICATION: Charcot Pain, Charcot foot COMPARISON: CR XR FOOT WT BEARING LT 3V from 01/13/2020 CR XR FOOT WT BEARING RT 3V from 01/13/2020 CR XR FOOT WT BEARING LT 3V from 05/18/2020 CR XR FOOT WT BEARING RT 3V from 05/18/2020 CR XR ANKLE WT BEARING LT MIN 3V from 11/11/2020 FINDINGS: Prior fusion of the talocalcaneal, calcaneocuboid, and talonavicular cuneiform and 1st metatarsal joints. No change in the bony hardware. No evidence of hardware malfunction or fracture. Sclerotic changes with fusion of the tarsal bones is stable. A spurs present along the neck of the talus anteriorly. Calcaneal spur is noted. Hammertoe deformity of the toes. Left ankle: Unremarkable IMPRESSION: No change in the postsurgical changes with tarsal fusion and Charcot joint of the midfoot with hammertoe deformity. Dictated by: Laron Jimenez MD 11/11/2020 13:40 Laron Jimenez MD in [place] 11/11/2020 13:40
--- NOTE | 2020-11-11 10:27 | XR_ITS ---
PROCEDURE: XR ANKLE WT BEARING RT MIN 3V CLINICAL INDICATION: diabetes Pain COMPARISON: CR XR ANKLE WT BEARING RT MIN 3V from 01/13/2020 CR XR ANKLE WT BEARING LT MIN 3V from 01/13/2020 CR XR FOOT WT BEARING RT 3V from 01/13/2020 CR XR ANKLE WT BEARING LT MIN 3V from 05/18/2020 CR XR ANKLE WT BEARING RT MIN 3V from 05/18/2020 CR XR FOOT WT BEARING RT 3V from 11/11/2020 FINDINGS: Right ankle: Mild degenerative changes with minimal spurring of the tip the medial malleolus and along the anterior distal tibia. Right foot: Pes planus with osteoarthritic changes at the talonavicular and navicular cuneiform joint as well as the tarsal metatarsal junction. Mild diffuse vascular calcification. Cystic changes are present within the navicular which appears stable. Prominent calcaneal spur and Achilles enthesophyte once again noted. IMPRESSION: Degenerative changes with pes planus as described above. Overall not significantly changed. Stable cystic changes within the navicular Dictated by: Laron Jimenez MD 11/11/2020 13:37 Laron Jimenez MD in [place] 11/11/2020 13:37
== END ==
PROVIDERS: PCP Family Medicine; Visit Provider Podiatrist
DX: E11.8 Type 2 diabetes mellitus with unspecified complications (principal); M14.672 Charcot's joint, left ankle and foot; Z79.84 Long term (current) use of oral hypoglycemic drugs
CPT/HCPCS: 73610; 73630

== ENCOUNTER → 2020-12-02 10:05 | Outpatient (CLI) | payer MEDICARE, MEDICAID, SELFPAY ==
--- NOTE | 2020-12-02 10:08 | XR_ITS ---
PROCEDURE: XR DEXA AXIAL SKELETON CLINICAL HISTORY: POST MENOPAUSAL COMPARISON: CR BONE3 BONE DENSITOMETRY(HIP:LT SPINE from 05/23/2017 FINDINGS: The right hip BMD is 0.712 with a T-score of -1.2. The left hip BMD is 0.697 with a T-score of -1.4. The lumbar spine BMD is 1.397 with a T-score of 3.2. Previously the lowest density was in the right femoral neck with a T-score -1.2. IMPRESSION: This patient is considered osteopenic according to the World Health Organization criteria. Bone density is between 10 and 25 percent below young normal. Fracture risk is moderate. Treatment is advised. Based on these results a follow-up exam is recommended in 2 year. Dictated by: Laron Jimenez MD 12/03/2020 05:32 Laron Jimenez MD in [place] 12/03/2020 05:32
[2020-12-02 11:34] LABS: Basophils % 0.3 % (0.1-2.0); Eosinophils # 0.2 K/mm3 (0.0-0.4); Eosinophils % 2.6 % (0.1-12.0); Hematocrit 35.4 % (37.0-47.0); Hemoglobin 12.1 g/dL (12.2-16.2); Lymphocytes # 1.7 K/mm3 (0.7-4.5); Lymphocytes % 24.5 % (10-50); Mean Corpuscular HGB Conc 34.1 g/dL (31.8-35.4); Mean Corpuscular Hemoglobin 29.9 pg (27.0-31.2); Mean Corpuscular Volume 87.7 fl (81-99); Mean Platelet Volume 7.4 fl (7.4-10.4); Monocytes # 0.3 K/mm3 (0.1-1.0); Monocytes % 3.7 % (1.7-9.3); Neutrophils # 4.7 K/mm3 (1.8-7.8); Neutrophils % 68.8 % (37.0-80.0); Platelet Count 179 K/mm3 (142-424); Red Blood Count 4.04 M/mm3 (4.20-5.40); Red Cell Distribution Width 14.4 % (11.5-17.5); White Blood Count 6.8 K/mm3 (4.8-10.8)
[2020-12-02 12:02] LABS: Albumin Level 4.2 g/dl (3.5-5.0); Anion Gap 10.3 mEq/L (5-15); Blood Urea Nitrogen 24 mg/dl (7-17); Calcium 9.6 mg/dl (8.4-10.2); Carbon Dioxide 25 mmol/L (22.0-30.0); Chloride 108 mmol/L (98-107); Estimated Glomerular Filt Rate 32 ml/min (>60); GFR (African American) 39 ML/MIN (>60); Glucose 163 mg/dl (74-100); Phosphorous 3.5 mg/dl (2.5-4.5); Potassium 4.3 mmoL/L (3.5-5.1); Sodium 139 mmol/L (136-145)
[2020-12-02 12:13] LABS: Intact Parathyroid Hormone 122.9 pg/mL (7.5-53.5)
[2020-12-02 12:19] LABS: 25-OH Vitamin D, Total 17.2 ng/mL (30-100)
[2020-12-04 00:51] LABS: Calcium, Ionized 5.2 mg/dL (4.5-5.6)
== END ==
PROVIDERS: PCP Family Medicine; Visit Provider Internal Medicine Nephrology
DX: N18.30 Chronic kidney disease, stage 3 unspecified (principal); Z78.0 Asymptomatic menopausal state
CPT/HCPCS: 36415; 77080; 80069; 82306; 82330; 83970; 85025

== ENCOUNTER → 2020-12-14 10:59 | Outpatient (POV) | payer MEDICARE, MEDICAID, SELFPAY | PROVIDERS: Visit Provider Internal Medicine Nephrology | DX: Z00.00 Encounter for general adult medical examination without abnormal findings (principal) ==

== ENCOUNTER 2021-04-07 21:59 | Inpatient (IN) | payer MEDICARE, MEDICAID, SELFPAY ==
[2021-04-07 21:54] VITALS: BP 141/65; PULSE 81; RESP 18; TEMP 36.8; O2SAT 99; BMI 40.3
[2021-04-07 22:21] LABS: Influenza A, PCR Not Detected (NotDetected); Influenza B, PCR Not Detected (NotDetected)
[2021-04-07 22:26] LABS: Basophils % 0.5 % (0.1-2.0); Hematocrit 36.4 % (37.0-47.0); Lymphocytes # 0.8 K/mm3 (0.7-4.5); Lymphocytes % 24.2 % (10-50); Mean Corpuscular HGB Conc 32.9 g/dL (31.8-35.4); Mean Corpuscular Hemoglobin 30.1 pg (27.0-31.2); Mean Corpuscular Volume 91.4 fl (81-99); Mean Platelet Volume 8.5 fl (7.4-10.4); Monocytes # 0.2 K/mm3 (0.1-1.0); Monocytes % 5.1 % (1.7-9.3); Neutrophils # 2.2 K/mm3 (1.8-7.8); Platelet Count 133 K/mm3 (142-424); Red Blood Count 3.98 M/mm3 (4.20-5.40); Red Cell Distribution Width 14.8 % (11.5-17.5); White Blood Count 3.1 K/mm3 (4.8-10.8)
[2021-04-07 22:30] VITALS: BP 129/66; RESP 26; O2SAT 95
[2021-04-07 22:31] LABS: Alanine Aminotransferase 32 U/L (12-78); Albumin Level 3.7 g/dl (3.5-5.0); Alkaline Phosphatase 73 U/L (38-126); Anion Gap 19.2 mEq/L (5-15); Aspartate Amino Transferase 95 U/L (14-36); Bilirubin,Total 0.6 mg/dl (0.2-1.3); Blood Urea Nitrogen 32 mg/dl (7-17); Calcium 8.3 mg/dl (8.4-10.2); Carbon Dioxide 21 mmol/L (22.0-30.0); Chloride 101 mmol/L (98-107); Creatinine Clearance Estimated 37 mL/min (50-200); Estimated Glomerular Filt Rate 18 ml/min (>60); GFR (African American) 22 ML/MIN (>60); Globulin 3.6 g/dL (1.3-3.2); Glucose 189 mg/dl (74-100); Lactic Acid 0.9 mmol/L (0.7-2.1); Potassium 4.2 mmoL/L (3.5-5.1); Sodium 137 mmol/L (136-145); Total Protein,Serum 7.3 g/dl (6.3-8.2)
[2021-04-07 22:32] LABS: Magnesium 1.4 mg/dl (1.6-2.3)
--- NOTE | 2021-04-07 22:34 | XR_ITS ---
PROCEDURE INFORMATION: Exam: XR Chest Exam date and time: 04/07/2021 10:34 PM Age: 66 years old Clinical indication: Cough and fever and shortness of breath and other: Weakness; Prior surgery; Surgery type: Open heart; Additional info: Weakness, fever TECHNIQUE: Imaging protocol: XR of the chest. Views: 1 view. COMPARISON: CR XR CHEST 2V 04/17/2019 9:05 AM FINDINGS: Limited inspiration and penetration of the chest with obese body habitus. Lungs: There has been interval development of patchy areas of interstitial infiltration noted within both mid and lower lung zones since prior examination of 04/17/2019. Pleural spaces: Unremarkable. No pleural effusion. No pneumothorax. Heart/Mediastinum: Moderate cardiomegaly. This patient is status post median sternotomy and coronary artery bypass surgery. Similar findings noted on prior examination. Bones/joints: There are degenerative changes noted within the thoracic spine and shoulders. IMPRESSION: There are patchy areas of interstitial infiltration identified within both mid and lower lung zones since prior examination of 04/17/2019. No evidence of pulmonary volume overload. Progress examination is suggested.
[2021-04-07 22:37] LABS: C-Reactive Protein 89.7 mg/L (0-4)
[2021-04-07 22:46] LABS: NT Pro Brain Natriuretic Pep. 1150 pg/mL (0-125); Troponin I 0.06 ng/ml (0.00-0.034)
[2021-04-07 22:47] LABS: Coronavirus 19, PCR Detected (NotDetected)
[2021-04-07 22:50] LABS: Procalcitonin 0.379 ng/mL (0.0-2.0)
[2021-04-07 23:30] VITALS: BP 152/64; PULSE 82; RESP 25; O2SAT 96
--- NOTE | 2021-04-07 23:57 | ECG_ITS ---
APPROVED REPORT Exam: Resting ECG HR:76 bpm ECG Measurements Heart Rate 76 AXES IN 124 P 40 QRSd 100 QRS -6 QT 418 T 174 QTc 470 Conclusion Sinus rhythm with premature atrial complexes Left ventricular hypertrophy with repolarization abnormality Abnormal ECG Electronically signed by : Abraham Thomas MD 04/09/2021 10:54:52
[2021-04-08] VITALS (8 sets, daily range): BP systolic 134–183; BP diastolic 69–85; PULSE 60–82; RESP 18–24; TEMP 36.4–37; O2SAT 93–98; BMI 40.5
--- NOTE | 2021-04-08 00:37 | HMH.EDNVD ---
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, Morbid obesity with body mass index (BMI) of 40.0 to 49.9, Thrombocytopenia associated with COVID-19, MARIANO (acute kidney injury) Disposition: Admitted As Inpatient Condition on Discharge: Fair Instructions: DI for Diarrhea and Traveler's Diarrhea -- Adult, DI for Diarrhea and Traveler's Diarrhea -- Child, DI for Nausea -- Adult, DI for Nausea -- Child Referrals: Provider,Referral, [Referring] - - Critical Care Critical Care Time: No Attestation: On 04/07/21, the high probability of a clinically significant, sudden or life threatening deterioration of the following system(s) required my full and direct attention, intervention and personal management. The time I documented below is in addition to time spent performing reported procedures but includes the following listed in this critical care notation. Medical Decision Making - Medical Records Medical records reviewed: Yes: I reviewed the patient's medical records. - Koffi Inquiry Pt receiving controlled substance: No Vital Signs: 04/07/21 21:54 Temperature 98.3 F Temperature Source Oral Pulse Rate [Right Brachial] 81 Respiratory Rate 18 Blood Pressure [Right Arm] 141/65 H Blood Pressure Mean [Right Arm] 90 Blood Pressure Source [Right Arm] Automatic Cuff 02 Sat by Pulse Oximetry 99 Oxygen Delivery Method Room Air Oxygen Flow Rate (LPM) 3 - Lab Data Lab results reviewed: Yes: I reviewed the patient's lab results. Lab Results 04/07/21 22:10: WBC 3.1 L, RBC 3.98 L, Hgb 12.0 L, Hct 36.4 L, MCV 91.4, MCH 30.1, MCHC 32.9, RDW 14.8, Plt Count 133 L, MPV 8.5, Neut % (Auto) 70.0, Lymph % (Auto) 24.2, [place] % (Auto) 5.1, Eos % (Auto) 0.0 L, Baso % (Auto) 0.5, Neut # (Auto) 2.2, Lymph # (Auto) 0.8, [place] # (Auto) 0.2, Eos # (Auto) 0.0, Baso # (Auto) 0.0 04/07/21 22:10: Sodium 137, Potassium 4.2, Chloride 101, Carbon Dioxide 21 L, Anion Gap 19.2 H, BUN 32 H, Creatinine 2.60 H, Estimated Creat Clear 37, Estimated GFR 18 L*, Est GFR ( Amer) 22 L, Glucose 189 H, Calcium 8.3 L, Total Bilirubin 0.6, AST 95 H, ALT 32, Alkaline Phosphatase 73, Troponin I 0.06 H, C-Reactive Protein 89.7 H, NT-Pro-B Natriuret Pep 1150 H, Total Protein 7.3, Albumin 3.7, Globulin 3.6 H, Albumin/Globulin Ratio 1.0 L 04/07/21 22:10: SARS-CoV-2 (PCR) Detected A, Influenza A Untype (PCR) Not detected, Influenza Type B (PCR) Not detected 04/07/21 22:10: Lactate 0.9 04/07/21 22:10: Magnesium 1.4 L, Procalcitonin 0.379 04/08/21 00:45: Urine Color Yellow, Urine Appearance Clear, Urine pH 6.0, Ur Specific [place] 1.025, Urine Protein 3+, Urine Glucose (UA) Negative, Urine Ketones Negative, Urine Blood 1+, Urine Nitrate Negative, Urine Bilirubin Negative, Urine Urobilinogen 0.2, Ur Leukocyte Esterase Negative, Urine RBC Occasional, Urine Bacteria Trace Result diagrams: 04/07/21 22:10 04/07/21 22:10 Orders (Tests/Meds): ED MEDICATIONS Generic Name Dose Route Start Last Admin Trade Name Freq PRN Reason Stop Dose Admin Sodium Chloride 1,000 mls @ 999 mls/hr 04/07/21 22:00 04/07/21 23:37 Sod Chlor 0.9% 1000ml Bag IV 04/07/21 23:00 999 mls/hr .Q1H1M EPIFANIO Administration Discontinued Medications Generic Name Dose Route Start Last Admin Trade Name Freq PRN Reason Stop Dose Admin Dexamethasone Sodium Phosphate 10 mg 04/07/21 23:38 04/07/21 23:39 Dexamethasone 4mg/Ml 5ml Mdv IV 04/07/21 23:39 10 mg ONCE ONE Administration Ondansetron HCl 4 mg 04/07/21 23:38 04/07/21 23:39 Ondansetron 4mg/2ml Vial IV 04/07/21 23:39 4 mg ONCE ONE Administration ORDERS Category Date Time Status Covid-19 IgG/IgM ([facility]) Stat Lab 04/08/21 01:00 Ordered Diarrhea 23 Panel, PCR Stat Lab 04/07/21 21:59 Ordered Troponin I Q3H Lab 04/08/21 01:00 Ordered Troponin I Q3H Lab 04/08/21 04:00 Ordered Blood Culture Stat Micro 04/07/21 22:10 Received - R
[2021-04-08 00:54] LABS: Microscopic, Urine URINE MICROSCOPIC (MICROSCOPIC)
[2021-04-08 01:00] LABS: Appearance,Urine CLEAR (Clear); Bilirubin,Urine Negative (Negative); Blood, Urine 1+ (Negative); Color,Urine YELLOW (Yellow); Glucose,Urine (UA) Negative (Negative); Ketones,Urine Negative (Negative); Leukocyte Esterase,Urine Negative (Negative); Nitrate,Urine Negative (Negative); Protein,Urine 3+ (Negative); Specific Gravity, Urine 1.025 (1.005-1.030); Urobilinogen,Urine 0.2 EU/dl (0.2)
[2021-04-08 01:09] LABS: Bacteria,Urine Trace /lpf; RBC,Urine Occasional #/hpf (0-3)
[2021-04-08 02:28] LABS: Coronavirus 19 IgG Antibody Negative (Negative); Coronavirus 19 IgM Antibody Negative (Negative)
[2021-04-08 02:29] LABS: Troponin I 0.05 ng/ml (0.00-0.034)
--- NOTE | 2021-04-08 03:07 | PC.NURSE ---
PT ARRIVED TO FLOOR VIA STRETCHER FROM ED W/STAFF AT [phone]
--- NOTE | 2021-04-08 03:44 | PC.NURSE ---
due to her illness, patient having difficulty recalling when some medications were last taken
[2021-04-08 04:35] LABS: Troponin I 0.05 ng/ml (0.00-0.034)
[2021-04-08 06:09] LABS: POC Glucose,Bedside 262 (70-110)
--- NOTE | 2021-04-08 07:00 | XR_ITS ---
PROCEDURE INFORMATION: Exam: XR Chest Exam date and time: 04/08/2021 7:00 AM Age: 66 years old Clinical indication: Shortness of breath; Patient HX: Covid; Additional info: SOB TECHNIQUE: Imaging protocol: XR of the chest. Views: 1 view. COMPARISON: CR XR CHEST PORTABLE 04/07/2021 10:44 PM FINDINGS: Lungs: The perihilar and basilar infiltrates appear slightly worse. Pleural spaces: No pleural effusion or pneumothorax is seen. Heart/Mediastinum: The cardiomegaly is grossly stable. Status post CABG. Bones/joints: The bones are demineralized. IMPRESSION: Persistent cardiomegaly with slightly worsening perihilar and basilar infiltrates.
[2021-04-08 07:05] LABS: Basophils % 0.3 % (0.1-2.0); Eosinophils % 0.1 % (0.1-12.0); Hematocrit 36.4 % (37.0-47.0); Hemoglobin 11.6 g/dL (12.2-16.2); Lymphocytes # 0.5 K/mm3 (0.7-4.5); Mean Corpuscular Hemoglobin 29.3 pg (27.0-31.2); Mean Corpuscular Volume 91.8 fl (81-99); Mean Platelet Volume 8.6 fl (7.4-10.4); Monocytes # 0.1 K/mm3 (0.1-1.0); Monocytes % 4.4 % (1.7-9.3); Neutrophils # 1.7 K/mm3 (1.8-7.8); Neutrophils % 75.3 % (37.0-80.0); Platelet Count 118 K/mm3 (142-424); Red Blood Count 3.97 M/mm3 (4.20-5.40); Red Cell Distribution Width 14.9 % (11.5-17.5); White Blood Count 2.3 K/mm3 (4.8-10.8)
[2021-04-08 07:21] LABS: Anion Gap 13.1 mEq/L (5-15); Blood Urea Nitrogen 34 mg/dl (7-17); Carbon Dioxide 22 mmol/L (22.0-30.0); Chloride 105 mmol/L (98-107); Creatinine Clearance Estimated 39 mL/min (50-200); Estimated Glomerular Filt Rate 19 ml/min (>60); GFR (African American) 23 ML/MIN (>60); Glucose 262 mg/dl (74-100); Magnesium 1.5 mg/dl (1.6-2.3); Potassium 4.1 mmoL/L (3.5-5.1); Sodium 136 mmol/L (136-145)
--- NOTE | 2021-04-08 07:32 | P.CONPHA_ITS ---
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 (Acute) COVID-19 with pulmonary comorbidity (Acute) Thrombocytopenia associated with COVID-19 (Acute) MARIANO (acute kidney injury) (Acute) Morbid obesity with body mass index (BMI) of 40.0 to 49.9 (Chronic) - VTE Risk Labs: VTE Related Lab Results Hgb 11.6 g/dL (12.2-16.2) L 04/08/21 06:07 Hct 36.4 % (37.0-47.0) L 04/08/21 06:07 Plt Count 118 K/mm3 (142-424) L 04/08/21 06:07 BUN 34 mg/dl (7-17) H 04/08/21 06:07 Creatinine 2.50 mg/dl (0.52-1.04) H 04/08/21 06:07 Estimated Creat Clear 39 mL/min (50-200) 04/08/21 06:07 Was VTE Risk Assessment Performed: Yes VTE Score: 9 VTE Risk Level: Moderate Risk Clinical Trial Participant: No - Prophylaxis VTE Prophylaxis Ordered?: Yes Types of VTE Prophylaxis: TEDS Knee High
--- NOTE | 2021-04-08 07:42 | HMH.CNCARD ---
History of Present Illness Consult date: 04/08/21 Requesting physician: Inocente Freeman Consult reason: shortness of breath Chief complaint: CHF and Covid History of present illness: 66-year-old female admitted to [facility] with COVID-19 and pneumonia. Patient states for the past 3 days she has been having worsening and progressively weakness and fatigue. Patient states increased shortness of breath for the past 3 days. States with her shortness of breath she is unable to perform her daily activities. Patient denies chest pain, tightness or pressure. Patient does complain of shortness of breath and is on supplemental oxygen at this time. Covid [address] Patient states for the past 1 week though she has been having diarrhea. She does deny abdominal pain or discomfort. Lower extremities noted with slight swelling. Patient states that she had been episodes of diaphoresis at night. Patient denies dizziness or palpitations. Vital signs are stable. Patient does have history of coronary artery disease. Patient was last seen in cardiology office in 2019. Patient did undergo heart catheterization in 2019 which revealed severe [place] three-vessel disease, widely patent three-vessel bypass grafts, normal EF and normal left ventricular end-diastolic pressure. Patient does have history of coronary bypass. Uncertain as the year when this was performed. Patient does have history of hypertensive heart disease. Patient is on appropriate and standard medication for HHD. History of CAD. History of hyperlipidemia in which she is on statin therapy. History of diabetes which is managed by PCP. Unsure of last date of echocardiogram. Patient does have history of renal disease. Initial echocardiogram reveals sinus rhythm with left ventricular hypertrophy with a heart rate of 86 bpm. Serial troponins were noted to slightly elevated at 0.05 x2. Creatinine noted at 2.60. BUN 32. BNP 1150. Chest x-ray revealed persistent cardiomegaly with slightly worsening basilar infiltrate. Patient is currently being treated with Remesdivir. This is being managed by PCP and pulmonology. [facility] ANGIOGRAPHIC RESULTS: (2019) 1. The left main artery has ostial proximal eccentric 30% stenosis 2. The left anterior descending artery is proximally normal and then occluded after the first septal adult care manager 3. The circumflex artery proximally occluded 4. The right coronary artery dominant and proximally occluded 5. The MCMILLAN ventriculogram reveals normal 60% 6. The left ventricular end-diastolic pressure 10 mmHg 7. The left internal mammary artery is widely patent to the mid LAD 8. The saphenous vein graft to the ramus intermedius is widely patent. The limb which then skips to the obtuse marginal artery is also widely patent. Both the ramus and obtuse marginal artery are large vessels 9. The saphenous vein graft to the posterior descending artery is widely patent IMPRESSION: 1. Severe [place] three-vessel disease as described above 2. Widely patent three-vessel bypass grafts with excellent surgical revascularization 3. Normal ejection fraction 4. Normal left ventricular end-diastolic pressure PLAN: 1. Patient is low and acceptable risk to proceed with surgery 2. Medical management Discussed plan of care with Dr. Gonzalez. Orders and recommendations were noted from Dr. Gonzalez. Due to COVID-19 symptoms and dehydration would recommend gentle hydration due to impaired renal function. Due to thrombocytopenia and low WBC, this may be contributing to her elevated troponins. Echocardiogram to assess LV function and valve status. Pending on the echocardiogram results, medication and treatment therapies may be recommended. No further cardiac testing indicated at this time unless patient develops new signs and symptoms. Will defer management of thrombocytopenia and low WBC to PCP. Further testing may be indicated for thromb
--- NOTE | 2021-04-08 07:47 | CA_ITS ---
APPROVED REPORT EXAM: Comprehensive 2D, Doppler, and color-flow Echocardiogram Roll Off Driver: Arcelia Laureano RT(R) Ht: 5 ft 6 in Wt: 256lbs BSA: 2.22 BP: 141/65 mmHg Indications: HTN, hyperlipidemia, COVID, pneumonia, MARIANO, CAD, GERD, hx [place] 2D Dimensions LVOT 2.01 cm (M/F) 1.5-2.5 M-Mode Dimensions RVDd 2.38 cm (0.9-2.6) LA Diam 4.35 cm (1.9-4.0) LVDd 5.95 cm (3.5-5.7) Ao Diam 2.94 cm (2.0-3.7) LVDs 4.80 cm (3.5-5.7) IVSd 1.02 cm (0.6-1.1) PWd 1.15 cm (0.6-1.1) EF (Teich) 39.10% FS 19.30% EDV (Teich) 176.60 mL ESV (Teich) 107.50 mL LV Diastology E Decel Time 243.00 (160-240 msec) E/A Ratio 0.6 MED E' 6.20 (< 7 cm/sec) E'/MED E' Ratio 10.73 (>14) LAT E' 6.20 (<10 cm/sec) E/LAT E' Ratio 10.73 (>14) Mitral Valve MV E Max Martin. 66.00 (40-130 cm/s) MV A Velocity 104.00 (40-130 cm/s) E/A Ratio 0.64 MV Decel. Time 243.00 (160-240 ms) MV PHT 71.00 ms Left Ventricle Left atrium is mildly enlarged, left ventricle is normal size, ejection fraction 50% with no regional wall motion abnormality, grade 1 diastolic dysfunction seen without tissue Doppler evidence of raise left atrial pressure. Right Ventricle Right atrium and right ventricle are normal size and contractility. Aortic Valve Aortic valve is minimally thickened and fibrosed, there is no aortic stenosis or aortic insufficiency. Mitral Valve Mitral valve is grossly normal, there is trace mitral regurgitation. Tricuspid Valve Tricuspid valve grossly normal, there is trace tricuspid regurgitation, tricuspid regurgitation jet velocity is inadequate for calculation of the right ventricular systolic pressure. Pulmonic Valve Pulmonic valve is poorly visualized. Great Vessels Aortic root is normal size. Inferior vena cava is not well visualized. Pericardium Trivial pericardial effusion noted. Conclusion 1. Mildly enlarged left atrium, normal left ventricular size, mild concentric left ventricular hypertrophy, visually estimated ejection fraction 50% with no obvious regional wall motion abnormality, grade 1 diastolic dysfunction seen without tissue Doppler evidence of raise left atrial pressure. 2. Trace mitral and tricuspid regurgitation. 3. Trivial pericardial effusion noted. Electronically signed by : Mohan Lomas MD 04/08/2021 11:49:05
--- NOTE | 2021-04-08 07:56 | HMH.PHAINT ---
MEDICATION RECONCILIATION COMPLETED USING PHARMACY FILL HISTORY AND RECENT OFFICE VISIT.
--- NOTE | 2021-04-08 08:38 | HMH.HP ---
*Admission Date: 04/08/21 <Mirta Ramirez 04/08/21 08:51> *Chief complaint: weakness, diarrhea, sweating <Mirta Ramirez 04/08/21 08:51> *History of present illness: Ms. Huerta is a 66-year-old female with a history of coronary artery disease, type 2 diabetes, GERD, hyperlipidemia, hypertension, history of AL, and history of renal disease. She states she began feeling poorly last week when she brought her significant other up to the emergency room. She has had increasing weakness to the point where she can hardly move around her home. She has had diarrhea which has been profuse the past 3 days. She states the last 3 nights she has had extreme sweating episodes. She is unsure if she has had a fever. She has had a slight cough and mild shortness of breath, but no chest pain. She came to the emergency room for evaluation and was found to have COVID-19 along with pneumonia. Her blood work showed a low white blood cell count and also thrombocytopenia. Her renal function was elevated as was her troponin, C-reactive protein, and BNP. Her magnesium was low. She was admitted and given a dose of dexamethasone along with Zofran in the emergency room. She was started on most of her home medications along with insulin. <Mirta Ramirez 04/08/21 08:51> [facility] History I have reviewed the patient's past medical history: Yes <Mirta Ramirez 04/08/21 08:51> Medical History: Reports:: Coronary Artery Disease, Diabetes Mellitus Type 2, Gastroesophageal Reflux Disease(GERD), Hyperlipidemia, Hypertension, Myocardial Infarction, Renal Disease, Renal Insufficiency Denies:: Cancer, Diabetes Mellitus Type 1, Internal Pacemaker, Lung Disease, MRSA, Seizures <Mirta Ramirez 04/08/21 08:51> *Have you ever received a pneumonia vaccine?: Yes <Mirta Ramirez 04/08/21 08:51> *Have you received a flu vaccine this season?: Yes <Mirta Ramirez 04/08/21 08:51> Other Medical History: Reports: Arthritis, Hypothyroidism. Denies: Blood Transfusion Reaction <Mirta Ramirez 04/08/21 08:51> Laterality Cases: Left: Arthroscopy Knee <Mirta Ramirez 04/08/21 08:51> Other Surgeries: Yes: No Previous Surgery, Angioplasty, CABG, Cardiac Catheterization, Cardiac Surgery, Cholecystectomy, Colonoscopy, Hysterectomy-Partial, Open Heart Surgery, Tubal Ligation, Other. No: Pacemaker <AshleyMirta 04/08/21 08:51> Amputation: No <AshleyMirta 04/08/21 08:51> Fractures: No <GabrielabhijitMirta 04/08/21 08:51> - *Social History Smoking Status: Never smoker <AshleyMirta 04/08/21 08:51> Alcohol Intake: never <GabrielabhijitMirta 04/08/21 08:51> Alcohol Intake Frequency:: other <AshleyMirta 04/08/21 08:51> Substance Use Type: denies use <AshleyMirta 04/08/21 08:51> *Occupational Status:: retired <AshleyMirta 04/08/21 08:51> Housing: house <AshleyMirta 04/08/21 08:51> Household Members: none <AshleyMirta 04/08/21 08:51> *Travel in the last 8 weeks: None <AshleyImrta 04/08/21 08:51> Family Hx:: Coronary Artery Disease, Diabetes, Hypertension <AshleyMirta 04/08/21 08:51> Review of Systems - Constitutional Reports excessive sweating, Reports fatigue, Reports lack of energy, Reports malaise, Reports weakness, Denies body ache(s), Denies fever(s) <AshleyMirta 04/08/21 08:51> - Eyes Denies blurry vision, Denies double vision [facility]> - ENT Denies nasal congestion, Denies sore throat [facility] 04/08/21 08:51> - *Cardiovascular Reports shortness of breath, Denies chest pain <AshleyMirta 04/08/21 08:51> - *Respiratory Reports cough, Reports shortness of breath <AshleyMirta 04/08/21 08:51> - *Gastrointestinal Reports abdominal pain, Reports loose stools, Denies nausea, Denies vomiting <AshleyMirta 04/08/21 08:51> - *Genitourinary Denies difficulty urinating, Denies painful urination <Mirta Ramirez - 04/08/21 08:51> - *Musculoskeletal Denies joint pain <Mirta Ramirez
--- NOTE | 2021-04-08 11:10 | PC.NURSE ---
pt has cup at bedside and will call nurse when sputum is produced.
[2021-04-08 11:55] LABS: POC Glucose,Bedside 227 (70-110)
--- NOTE | 2021-04-08 12:08 | HMH.PULMCON ---
*Admission Date: 04/08/21 *Reason for consult:: Acute hypoxic respiratory failure, COVID-19 pneumonia *History of present illness: Ms. Richardson is a 66-year-old female yet to be vaccinated never smoker no prior respiratory complaints not on any inhalers at home presented to the hospital with worsening fatigue weakness and mild respiratory distress that is been gradually worsening for the last 7 days. Patient denies any known sick contacts however she came to this hospital a week ago. [facility] History Medical History: Reports:: Coronary Artery Disease, Diabetes Mellitus Type 2, Gastroesophageal Reflux Disease(GERD), Hyperlipidemia, Hypertension, Myocardial Infarction, Renal Disease, Renal Insufficiency Denies:: Cancer, Diabetes Mellitus Type 1, Internal Pacemaker, Lung Disease, MRSA, Seizures *Have you ever received a pneumonia vaccine?: Yes *Have you received a flu vaccine this season?: Yes Other Medical History: Reports: Arthritis, Hypothyroidism. Denies: Blood Transfusion Reaction Laterality Cases: Left: Arthroscopy Knee Other Surgeries: Yes: No Previous Surgery, Angioplasty, CABG, Cardiac Catheterization, Cardiac Surgery, Cholecystectomy, Colonoscopy, Hysterectomy-Partial, Open Heart Surgery, Tubal Ligation, Other. No: Pacemaker Amputation: No Fractures: No - *Social History Smoking Status: Never smoker Alcohol Intake: never Alcohol Intake Frequency:: other Substance Use Type: denies use *Occupational Status:: retired Housing: house Household Members: none *Travel in the last 8 weeks: None Family Hx:: Coronary Artery Disease, Diabetes, Hypertension ROS - Cons Reports anorexia, Reports body ache(s), Reports fatigue, Reports weakness - ENT Denies difficulty swallowing - Card Reports shortness of breath, Reports shortness of breath with activity - Resp Respiratory: Reports chest congestion, Reports cough, Denies excessive phlegm production - GI Gastrointestingal: Denies: abdominal pain - Psych Denies lack of enjoyment, Denies anxiety Meds Home Medications Medication Instructions Recorded Confirmed Type Aspirin [Aspirin 81mg chewable 81 mg PO DAILY 08/29/17 04/08/21 History tab] sitagliptin 100 mg tablet 100 mg PO DAILY #30 tab 10/03/17 04/08/21 Rx terazosin 1 mg capsule 1 mg PO HS #30 cap 10/03/17 04/08/21 Rx amlodipine 5 mg tablet 5 mg PO DAILY #30 tab 05/18/18 04/08/21 Rx allopurinol 300 mg tablet 300 mg PO DAILY 30 Days tab 11/19/18 09/09/21 History magnesium oxide 400 mg (241.3 mg 400 mg PO DAILY 30 Days #30 tab 08/27/18 04/08/21 History magnesium) tablet glimepiride 1 mg tablet 1 mg PO BID 09/19/18 04/08/21 History melatonin 5 mg tablet 10 mg PO HS PRN 09/19/18 04/08/21 History colchicine 0.6 mg tablet 1.2 mg PO DAILY 30 Days tab 09/24/18 04/08/21 History gabapentin 300 mg capsule 300 mg PO TID 30 Days #60 cap 02/13/19 04/08/21 History Ergocalciferol (Vitamin D2) 50,000 unit PO DIRECTED 04/25/19 04/08/21 History [Vitamin D2] Ezetimibe 10 mg PO DAILY 04/25/19 04/08/21 History ondansetron 4 mg disintegrating 4 mg PO Q6H #30 tab 04/25/19 04/08/21 Rx tablet hydrochlorothiazide 25 mg tablet 25 mg PO DAILY 11/14/19 04/08/21 History losartan 50 mg tablet 50 mg PO DAILY tab 11/11/20 04/08/21 History Atorvastatin Calcium [Lipitor 80mg 80 mg PO HS 04/08/21 04/08/21 History Tab] Levothyroxine Sodium 25 mcg PO DAILY 04/08/21 04/08/21 History [Levothyroxine] Ranolazine [Ranolazine ER] 500 mg PO BID 04/08/21 04/08/21 History carvediloL [Carvedilol 12.5mg Tab] 12.5 mg PO BID 04/08/21 04/08/21 History Allergies Allergy/AdvReac Type Severity Reaction Status Date / Time Sulfa (Sulfonamide Allergy Intermediate I-ITCHING Verified 04/08/21 03:25 Antibiotics) aspartame Allergy Mild Verified 04/08/21 03:25 [From Nutrasweet Aspartame] Exam - Constitutional Constitutional:: Present: no acute distress, comfortable - [facility] Exam [facility]: Present: normocephalic, atraumatic - Eye E
[2021-04-08 13:24] LABS: C-Reactive Protein 91.4 mg/L (0-4)
[2021-04-08 13:25] LABS: D-Dimer 1.09 ug/mL (0.0-0.5)
[2021-04-08 13:56] LABS: Ferritin 420 ng/ml (11.1-264)
[2021-04-08 16:08] LABS: POC Glucose,Bedside 217 (70-110)
--- NOTE | 2021-04-08 17:09 | PC.NURSE ---
PT IS RESTING IN BED. NO COMPLAINTS OF DISCOMFORT. PT WAS OFFERED TO GET OOB TO CHAIR AND SHE STATED SHE WAS VERY WEAK AND JUST WANTED TO REST IN BED. PT WAS ENCOURAGED TO TURN AND REPOSITION IN BED. LUNG SOUNDS DIMINISHED. ABDOMEN SOFT/NON TENDER WITH ACTIVE BOWEL SOUNDS. O2 SATURATION 91-93% ON 2 L NC. WILL CONTINUE TO MONITOR.
[2021-04-08 21:04] LABS: POC Glucose,Bedside 211 (70-110)
[2021-04-09] VITALS (9 sets, daily range): BP systolic 127–148; BP diastolic 58–72; PULSE 50–70; RESP 18–20; TEMP 36.4–36.6; O2SAT 89–95; BMI 39.7; BMI 39.6
--- NOTE | 2021-04-09 03:28 | PC.NURSE ---
Shift summary. Pt has rested well t/o shift. Pt has tolerated 2 L nc well t/o shift with sats above 93%. Pt has voiced no complaints to staff. Pt currently resting in bed. Call light within reach. Will continue to monitor.
[2021-04-09 05:45] LABS: POC Glucose,Bedside 209 (70-110)
--- NOTE | 2021-04-09 07:46 | HMH.PNCARD ---
Subjective Date: 04/09/21 Time: 07:30 Principal diagnosis: CHF and Covid Interval history: 66-year-old female admitted to [facility] with COVID-19 and pneumonia yesterday. Patient states she is feeling somewhat better. Patient does complain of fatigue and states she just does not feel like getting out of bed. Encouraged patient to increase her ambulation within the room patient. Denies chest pain, tightness or pressure. Patient denies shortness of breath and does continue to be on supplemental oxygen at this time. Covid [address] Patient has had no more episodes of diarrhea. She denies any abdominal pain or discomfort. Lower extremities noted with slight swelling. campus monitor reveals sinus bradycardia to sinus rhythm. Heart rate will range from 50 to 60 bpm. Patient does have history of CAD. Last heart catheterization revealed medical management in 2019. Patient is on appropriate heart disease medications. Patient does have history of renal disease. Renal function is improving. Creatinine is down to 2.00. Gentle hydration remains continuous per PCP. Chest x-ray revealed persistent cardiomegaly with slightly worsening basilar infiltrate. Patient is currently being treated with Remesdivir. This is being managed by PCP and pulmonology. Echocardiogram was obtained to assess LV function. EF revealed 50% with no obvious regional motion abnormality, grade 1 diastolic dysfunction with trace mild and tricuspid regurgitation. There is noted a trivial pericardial effusion. Echo:Conclusion 1. Mildly enlarged left atrium, normal left ventricular size, mild concentric left ventricular hypertrophy, visually estimated ejection fraction 50% with no obvious regional wall motion abnormality, grade 1 diastolic dysfunction seen without tissue Doppler evidence of raise left atrial pressure. 2. Trace mitral and tricuspid regurgitation. 3. Trivial pericardial effusion noted. Discussed plan of care with Dr. Gonzalez. Orders and recommendations were received from Dr. Gonzalez. Continue gentle hydration due to depleted electrolytes. This is being managed through PCP. Management of Covid and pneumonia by PCP and pulmonology. No further cardiac testing is noted at this time unless patient's symptoms persist or become worse. Patient is to follow-up with cardiology in 1 to 2 weeks following hospital discharge. At cardiology follow-up, further cardiac testing can be initiated at that time. Please notify cardiology of any changes in patient status. Thank you for allowing cardiology to participate in the care of this patient. Exam Vital signs and Labs for Last 24 Hours: Temp Pulse Resp BP Pulse Ox 97.6 F 62 18 129/61 93 L 04/09/21 04:00 04/09/21 04:00 04/09/21 04:00 04/09/21 04:00 04/09/21 04:00 Laboratory Results - last 24 hr 04/08/21 11:05: POC Glucose 227 H 04/08/21 12:54: D-Dimer 1.09 H 04/08/21 12:54: Ferritin 420 H, C-Reactive Protein 91.4 H 04/08/21 15:43: POC Glucose 217 H 04/08/21 20:49: POC Glucose 211 H 04/09/21 05:39: POC Glucose 209 H I & O for Last 24 hours: Intake & Output 04/06/21 04/07/21 04/08/21 04/09/21 23:59 23:59 23:59 23:59 Intake Total 1640 / 1640 Output Total 1470 / 1670 325 / 325 Balance 170 / -30 -325 / -325 Weight 250 lb 252 lb 247 lb 4 oz - Constitutional no acute distress, obese, cooperative - *Routine HEENT Exam Head: Present: normocephalic ENT: Present: mucous membranes moist - *Routine Neck Exam Present: supple, full ROM, normal carotid upstroke. Absent: JVD, carotid bruit, lymphadenopathy - *Routine Respiratory Exam Present: accessory muscle use, wheezes - *Routine Cardiovascular Exam Present: RRR, Normal S1, Normal S2, bradycardia. Absent: murmur, JVD - *Routine Abdominal Exam Present: soft, normoactive bowel sounds, tenderness. Absent: distended, rebound, firm - *Routine Extremities Exam Present: edema, ful
--- NOTE | 2021-04-09 08:30 | HMH.ACPN2 ---
Internal Medicine - PN: Subj *Date: 04/09/21 *Time: 08:30 Interval history: She rested well last night. No increased respiratory difficulty. O2 sats been stable on 2 L of nasal oxygen. Diarrhea has slowed some. Appetite remains poor. She complains of feeling weak. She has not been out of bed. Exam Vital signs and Labs for Last 24 Hours: Temp Pulse Resp BP Pulse Ox 97.8 F 64 18 148/72 H 94 L 04/09/21 08:00 04/09/21 08:00 04/09/21 08:00 04/09/21 08:00 04/09/21 08:00 Laboratory Results - last 24 hr 04/08/21 11:05: POC Glucose 227 H 04/08/21 12:54: D-Dimer 1.09 H 04/08/21 12:54: Ferritin 420 H, C-Reactive Protein 91.4 H 04/08/21 15:43: POC Glucose 217 H 04/08/21 20:49: POC Glucose 211 H 04/09/21 05:39: POC Glucose 209 H I & O for Last 24 hours: Intake & Output 04/06/21 04/07/21 04/08/21 04/09/21 11:59 11:59 11:59 11:59 Intake Total 1240 / 1240 580 / 580 Output Total 770 / 770 1025 / 1025 Balance 470 / 470 -445 / -445 Weight 252 lb 247 lb 4 oz Narrative: She appears in no distress. Lungs are clear anteriorly. Heart is regular. Abdomen obese, soft, nondistended with mild diffuse tenderness. Extremities no edema. Assessment and Plan (1) Pneumonia due to COVID-19 virus Status: Acute Category: Medical Code(s): U07.1 - COVID-19; J12.82 - Pneumonia due to coronavirus disease 2018 (2) MARIANO (acute kidney injury) Status: Acute Category: Medical Code(s): N17.9 - Acute kidney failure, unspecified (3) Elevated troponin Status: Acute Category: Medical Code(s): R77.8 - Other specified abnormalities of plasma proteins (4) Pneumonia due to COVID-19 virus Status: Acute Category: Medical Code(s): U07.1 - COVID-19; J12.82 - Pneumonia due to coronavirus disease 2018 (5) Thrombocytopenia associated with COVID-19 Status: Acute Category: Medical Code(s): U07.1 - COVID-19; D69.59 - Other secondary thrombocytopenia (6) CAD (coronary artery disease) Status: Chronic Qualifiers: Coronary Disease-Associated Artery/Lesion type: [place] artery [place] vs. transplanted heart: [place] heart Associated angina: with other forms of angina Qualified Code(s): I25.118 - Atherosclerotic heart disease of [place] coronary artery with other forms of angina pectoris Category: Medical Code(s): I25.10 - Atherosclerotic heart disease of [place] coronary artery without angina pectoris (7) HLD (hyperlipidemia) Status: Chronic Qualifiers: Hyperlipidemia type: mixed hyperlipidemia Qualified Code(s): E78.2 - Mixed hyperlipidemia Category: Medical Code(s): E78.5 - Hyperlipidemia, unspecified (8) HTN (hypertension) Status: Chronic Qualifiers: Hypertension type: essential hypertension Category: Medical Code(s): I10 - Essential (primary) hypertension (9) Morbid obesity with body mass index (BMI) of 40.0 to 49.9 Status: Chronic Category: Medical Code(s): E66.01 - Morbid (severe) obesity due to excess calories (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 Awaiting a.m. labs after hydration to see if this is improved. Appreciate cardiology and pulmonology input.
[2021-04-09 09:16] LABS: Basophils % 0.2 % (0.1-2.0); Eosinophils % 0.2 % (0.1-12.0); Hematocrit 38.8 % (37.0-47.0); Hemoglobin 12.5 g/dL (12.2-16.2); Lymphocytes # 0.5 K/mm3 (0.7-4.5); Mean Corpuscular HGB Conc 32.2 g/dL (31.8-35.4); Mean Corpuscular Hemoglobin 29.9 pg (27.0-31.2); Mean Corpuscular Volume 92.6 fl (81-99); Mean Platelet Volume 7.5 fl (7.4-10.4); Monocytes # 0.3 K/mm3 (0.1-1.0); Neutrophils # 5.7 K/mm3 (1.8-7.8); Neutrophils % 88.7 % (37.0-80.0); Platelet Count 143 K/mm3 (142-424); Red Blood Count 4.19 M/mm3 (4.20-5.40); Red Cell Distribution Width 14.2 % (11.5-17.5); White Blood Count 6.4 K/mm3 (4.8-10.8)
[2021-04-09 09:17] LABS: Anion Gap 12.9 mEq/L (5-15); Blood Urea Nitrogen 42 mg/dl (7-17); Calcium 8.1 mg/dl (8.4-10.2); Carbon Dioxide 21 mmol/L (22.0-30.0); Chloride 109 mmol/L (98-107); Creatinine Clearance Estimated 48 mL/min (50-200); Estimated Glomerular Filt Rate 25 ml/min (>60); GFR (African American) 30 ML/MIN (>60); Glucose 235 mg/dl (74-100); MANUAL DIFFERENTIAL MANUAL DIFFERENTIAL (MANUAL DIFF); Potassium 3.9 mmoL/L (3.5-5.1); Sodium 139 mmol/L (136-145)
--- NOTE | 2021-04-09 09:35 | HMH.PULMPN ---
Internal Medicine - PN: Subj *Date: 04/09/21 *Time: 13:29 Interval history: No acute respiratory events overnight. Patient denies any new complaints. Denies any significant improvement in her symptoms. Exam - Constitutional Constitutional:: Present: no acute distress, comfortable - HENMT Exam HENMT: Present: normocephalic, atraumatic - Eye Exam Eyes:: Present: normal appearance both eyes and related structures - Neck Exam Neck:: Present: normal visual inspection - Respiratory Exam Respiratory:: Present: able to speak in complete sentences, no respiratory distress, crackles. Absent: wheezing - Cardiovascular Exam Cardiac:: Present: S1, S2 - GI Exam GI:: Present: soft - Skin Exam Skin: Present: warm, no rash - Neurological Exam Neurological: Present: alert, awake, normal cognition - Extremities Exam Extremities: Present: no cyanosis, no clubbing, no edema, tenderness Assessment and Plan (1) Pneumonia due to COVID-19 virus Status: Acute Category: Medical Code(s): U07.1 - COVID-19; J12.82 - Pneumonia due to coronavirus disease 2019 (2) MARIANO (acute kidney injury) Status: Acute Category: Medical Code(s): N17.9 - Acute kidney failure, unspecified (3) Elevated troponin Status: Acute Category: Medical Code(s): R77.8 - Other specified abnormalities of plasma proteins (4) Pneumonia due to COVID-19 virus Status: Acute Category: Medical Code(s): U07.1 - COVID-19; J12.82 - Pneumonia due to coronavirus disease 2019 (5) Thrombocytopenia associated with COVID-19 Status: Acute Category: Medical Code(s): U07.1 - COVID-19; D69.59 - Other secondary thrombocytopenia (6) CAD (coronary artery disease) Status: Chronic Qualifiers: Coronary Disease-Associated Artery/Lesion type: [place] artery [place] vs. transplanted heart: [place] heart Associated angina: with other forms of angina Qualified Code(s): I25.118 - Atherosclerotic heart disease of [place] coronary artery with other forms of angina pectoris Category: Medical Code(s): I25.10 - Atherosclerotic heart disease of [place] coronary artery without angina pectoris (7) HLD (hyperlipidemia) Status: Chronic Qualifiers: Hyperlipidemia type: mixed hyperlipidemia Qualified Code(s): E78.2 - Mixed hyperlipidemia Category: Medical Code(s): E78.5 - Hyperlipidemia, unspecified (8) HTN (hypertension) Status: Chronic Qualifiers: Hypertension type: essential hypertension Category: Medical Code(s): I10 - Essential (primary) hypertension (9) Morbid obesity with body mass index (BMI) of 40.0 to 49.9 Status: Chronic Category: Medical Code(s): E66.01 - Morbid (severe) obesity due to excess calories (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 Status: Chronic Category: Medical Code(s): E11.610 - Type 2 diabetes mellitus with diabetic neuropathic arthropathy (11) Chronic kidney disease Status: Acute Category: Medical Code(s): N18.9 - Chronic kidney disease, unspecified (12) Hypothyroidism Status: Acute Category: Medical Code(s): E03.9 - Hypothyroidism, unspecified - Assessment and plan all Dx Assessment and Plan for all problems:: #Acute hypoxic respiratory failure: #COVID-19 pneumonia: 66-year-old yet to be vaccinated never smoker no prior respiratory complaints presented with worsening fatigue weakness, diarrhea and respiratory distress for the last week and found to be COVID-19 positive. Her other comorbidities including CKD, diabetes mellitus, dyslipidemia and CAD Chest x-ray admission bilateral lower lobe pulmonary infiltrates along with concerning left-sided pleural effusion and cardiology. Leukopenia with lymphopenia noted. D-dimer elevated at 1.09. CRP at 91.41 ferritin at 420 Plan: Lower extremity venous Doppler Follow with blood cultures Sputum culture with induction Continue doxycycline for CAP Continue dexamethasone for COVID-19 pneumonia we will follo
[2021-04-09 09:42] LABS: Lymphocytes % 10 % (10-50); Monocytes % 4 % (2-9); Neutrophils % 83 % (42-76); Platelet Estimate Normal; RBC Morphology Normal; Total Cells Counted 100
[2021-04-09 12:48] LABS: POC Glucose,Bedside 208 (70-110)
--- NOTE | 2021-04-09 13:31 | CA_ITS ---
APPROVED REPORT Bilateral Lower Extremity Venous Study for DVT. Head Of Talent Management: AHMET Singh Lower Extremity Pain: Bilateral Lower Extremity Edema: Bilateral Shortness of breath CAD Hypoxia, elevated d-dimer Risk Factors Obesity CAD Covid pnemonia Vein Imaging CFV (R): compressive, spontaneous, phasic, augmentation FEM (R): compressive, spontaneous, phasic, augmentation POP (R): compressive, spontaneous, phasic, augmentation PTV (R): compressive, spontaneous, phasic, augmentation GSV (R): compressive, spontaneous, phasic, augmentation Peroneals (R):compressive, spontaneous, phasic, augmentation GAS (R): compressive, spontaneous, phasic, augmentation CFV (L): compressive, spontaneous, phasic, augmentation FEM (L): compressive, spontaneous, phasic, augmentation POP (L): compressive, spontaneous, phasic, augmentation PTV (L): Non-Compressible, not well visualized GSV (L): Non-Compressible below the knee, Thrombus below the knee Peroneals (L):Not Visualized GAS (L): Not Visualized Findings Study suggests no evidence of DVT or SVT in the right lower extremity. Study suggests thrombus in the left great saphenous vein below the knee, and in the left posterior tibial veins. Left peroneal veins were not visualized. All other veins of the left lower extremity were normal. Technically difficult study due to patient body habitus. Conclusion Study suggests no evidence of DVT or SVT in the right lower extremity. Study suggests thrombus in the left greater saphenous vein below the knee, and in the left posterior tibial veins. Left peroneal veins were not visualized. All other veins of the left lower extremity were normal. Technically difficult study due to patient body habitus. Critical Notification Critical Value: Yes Physician Notified Date: 04/09/2021 Time: 14:52 Physician Name: RN second floor Electronically signed by : Laron Jimenez MD 04/09/2021 16:47:32
--- NOTE | 2021-04-09 15:04 | PC.NURSE ---
Called and spoke with Janneth and made her aware that pt has a thrombus in the L great saphenous vein below knee and a thrombus in the posterior tibial vein. She stated she is going to make Dr. Freeman aware. Awaiting return call at this time. Call placed and 1455.
[2021-04-09 15:49] LABS: POC Glucose,Bedside 205 (70-110)
[2021-04-09 16:35] LABS: Adenovirus F 40/41, stool Not Detected (NotDetected); Astrovirus Not Detected (NotDetected); Campylobacter Not Detected (NotDetected); Cryptosporidium Not Detected (NotDetected); Cyclospora Cayetanesis Not Detected (NotDetected); Entamoeba histolytica Not Detected (NotDetected); Enteroaggregative E coli Not Detected (NotDetected); Enteropathogenic E coli Not Detected (NotDetected); Enterotoxigenic E coli Not Detected (NotDetected); Giardia lamblia Not Detected (NotDetected); Norovirus Not Detected (NotDetected); Plesimonas Shigalloides, PCR Not Detected (NotDetected); Rotavirus A Not Detected (NotDetected); Salmonella, PCR Not Detected (NotDetected); Sapovirus Not Detected (NotDetected); Shiga-like toxin E coli Not Detected (NotDetected); Shigella Enterovasive E coli Not Detected (NotDetected); Vibrio Cholerae Not Detected (NotDetected); Vibrio, PCR Not Detected (NotDetected); Yersinia Entercolitica, PCR Not Detected (NotDetected)
[2021-04-09 19:40] LABS: Clostridium Difficile A/B, PCR Detected (NotDetected)
--- NOTE | 2021-04-09 20:06 | PC.NURSE ---
This RN did call again at 1559 and speak with Janneth in RE to further orders for pt if Dr. Freeman wanted, nno given at that time. This RN also paged Dr. Freeman this afternoon and made him aware of the 2 thrombus's that pt has in L leg and he stated he didn't want any new meds or orders on pt, because she is already on lovenox and he doesn't want to change the dose, because of kidney function at this time. Noted.
[2021-04-09 21:13] LABS: POC Glucose,Bedside 189 (70-110)
[2021-04-10] VITALS (9 sets, daily range): BP systolic 119–159; BP diastolic 47–66; PULSE 58–70; RESP 18–22; TEMP 36.5–37.1; O2SAT 88–90; BMI 41.7
--- NOTE | 2021-04-10 04:25 | PC.NURSE ---
Pt rested well with no complaints of pain throughout the night. Pt remains on 2L nasal canula, call lozano within reach. Will continue to monitor.
[2021-04-10 06:12] LABS: POC Glucose,Bedside 244 (70-110)
--- NOTE | 2021-04-10 08:43 | HMH.ACPN2 ---
Internal Medicine - PN: Subj *Date: 04/10/21 *Time: 08:43 Interval history: She was up to the bedside commode yesterday but otherwise did not get out of bed. States she still feels quite weak. Some increased shortness of breath but still on 2 L of nasal cannula. Did not sleep well last night due to noise. Appetite remains poor. Still with diarrhea. Her stool panel showed C. difficile. Exam Vital signs and Labs for Last 24 Hours: Temp Pulse Resp BP Pulse Ox 97.7 F 58 L 18 158/65 H 90 L 04/10/21 08:00 04/10/21 08:00 04/10/21 08:00 04/10/21 08:00 04/10/21 08:00 Laboratory Results - last 24 hr 04/09/21 08:57: WBC 6.4 D, RBC 4.19 L, Hgb 12.5, Hct 38.8, MCV 92.6, MCH 29.9, MCHC 32.2, RDW 14.2, Plt Count 143, MPV 7.5, Neut % (Auto) 88.7 H, Lymph % (Auto) 7.0 L, [place] % (Auto) 4.0, Eos % (Auto) 0.2, Baso % (Auto) 0.2, Neut # (Auto) 5.7, Lymph # (Auto) 0.5 L, [place] # (Auto) 0.3, Eos # (Auto) 0.0, Baso # (Auto) 0.0, Total Counted 100, Neutrophils % (Manual) 83 H, Band Neutrophils % 2.0, Lymphocytes % (Manual) 10, Monocytes % (Manual) 4, Basophils % (Manual) 1.0, Platelet Estimate Normal, RBC Morphology Normal 04/09/21 08:57: Sodium 139, Potassium 3.9, Chloride 109 H, Carbon Dioxide 21 L, Anion Gap 12.9, BUN 42 H, Creatinine 2.00 H, Estimated Creat Clear 48, Estimated GFR 25 L, Est GFR ( Amer) 30 L D, Glucose 235 H, Calcium 8.1 L 04/09/21 12:36: POC Glucose 208 H 04/09/21 15:31: POC Glucose 205 H 04/09/21 16:25: Stl Aeromonas (PCR) Not detected, Stl C. cayetanensis PCR Not detected, Stool Rotavirus (PCR) Not detected, Stl Adenov F 40/41 PCR Not detected, Stool Astrovirus (PCR) Not detected, Stool Campylobacter PCR Not detected, Stl C.difficile Tox PCR Detected A, Stool Cryptosporidium PCR Not detected, Stl E.coli Shiga Tox PCR Not detected, Stool E coli O157 PCR Not detected, Stl Enterotoxigenic E PCR Not detected, Stool EPEC (PCR) Not detected, Stool EAEC (PCR) Not detected, Stl E. histolytica PCR Not detected, Stool Giardia Lamblia PCR Not detected, Stool Salmonella PCR Not detected, Stool Sapovirus (PCR) Not detected, Stl P. shigelloides PCR Not detected, Stl Shigella/EIEC PCR Not detected, St Y.enterocolitica PCR Not detected, Stool Vibrio (PCR) Not detected, Stl Vibrio cholerae PCR Not detected, Stl Norovirus GI/GII PCR Not detected 04/09/21 21:06: POC Glucose 189 H 04/10/21 05:58: POC Glucose 244 H I & O for Last 24 hours: Intake & Output 04/07/21 04/08/21 04/09/21 04/10/21 11:59 11:59 11:59 11:59 Intake Total 1240 / 1240 580 / 580 900 / 900 Output Total 770 / 770 1025 / 1025 700 / 700 Balance 470 / 470 -445 / -445 200 / 200 Weight 252 lb 246 lb 14.684 oz 259 lb 12.8 oz Microbiology Reports for the Last 24 Hours: Microbiology 04/07/21 22:10 Blood Blood Culture - Preliminary NO GROWTH AFTER 48 HOURS 04/07/21 22:10 Blood Blood Culture - Preliminary NO GROWTH AFTER 48 HOURS Narrative: She initially seemed confused but easily oriented. Color is pale. Chest with crackles in both bases and occasional faint wheeze. Heart is distant but regular. Extremities no edema. Venous Doppler shows DVT of the left leg Diarrhea panel positive for C. difficile Assessment and Plan (1) Pneumonia due to COVID-19 virus Status: Acute Category: Medical Code(s): U07.1 - COVID-19; J12.82 - Pneumonia due to coronavirus disease 2019 (2) MARIANO (acute kidney injury) Status: Acute Category: Medical Code(s): N17.9 - Acute kidney failure, unspecified (3) Elevated troponin Status: Acute Category: Medical Code(s): R77.8 - Other specified abnormalities of plasma proteins (4) Pneumonia due to COVID-19 virus Status: Acute Category: Medical Code(s): U07.1 - COVID-19; J12.82 - Pneumonia due to coronavirus disease 2019 (5) Thrombocytopenia associated with COVID-19 Status: Acute Category: Medical Code(s): U07.1 - COVID-19; D69.59 - Ot
[2021-04-10 12:35] LABS: POC Glucose,Bedside 242 (70-110)
--- NOTE | 2021-04-10 15:32 | PC.NURSE ---
Pt is alert and oriented x4. Crackles noted in lung bases and diminished t/o. O2 was increased to 4L NC from 2L due to O2 sats dropping to the 80's. She uses the bsc and reports having diarrhea. She has been NSR on telemetry. Glucose elevated into the 200's, SSI administered per sep. Cole is to bedside draining straw colored urine. Appetite is fair with pt eating approx 50% of meals. No complaints verbalized.
[2021-04-10 17:18] LABS: POC Glucose,Bedside 184 (70-110)
[2021-04-11] VITALS (12 sets, daily range): BP systolic 123–160; BP diastolic 56–69; PULSE 60–72; RESP 18–26; TEMP 36.3–36.8; O2SAT 87–92; BMI 40.0
[2021-04-11 00:42] LABS: POC Glucose,Bedside 149 (70-110)
--- NOTE | 2021-04-11 03:00 | PC.NURSE ---
A&OX4. PT STARTED SHIFT ON 4LNC. PT SATS BEGAN TO DROP TO LOWER 80S. PT PLACED ON 50% VENTURI MASK. PT DID NOT TOLERATE THIS, O2 SAT DECREASING TO LOW 80S. CONTACTED MD TO UPDATE. HE SUGGESTS VAPOTHERM, HOWEVER WE HAVE NONE AVAILABLE AT THIS TIME. PT PLACED ON 100% NON-REBREATHER, GOAL OF O2 SAT >88%. PT SAT 91% AT THIS TIME. PT SAT DOES DECREASE WITH ACTIVITY. PT HAS HAD NO C/O THUS FAR THIS SHIFT, OTHER THAN FEELING CLAUSTROPHOBIC WITH MASK ON. PT STATES THAT SHE DOESN'T KNOW IF SHE WOULD WANT TO BE PLACED ON VENTILATOR IF IT CAME TO THAT. STATES THAT SHE WANTS TO SPEAK WITH HER FAMILY. PT HAS RESTED WELL T/O SHIFT, USING BED MYERS TO VOID. VSS WILL CONTINUE TO MONITOR.
[2021-04-11 06:15] LABS: Basophils % 0.3 % (0.1-2.0); Eosinophils % 0.2 % (0.1-12.0); Hematocrit 37.1 % (37.0-47.0); Hemoglobin 11.6 g/dL (12.2-16.2); Lymphocytes # 0.4 K/mm3 (0.7-4.5); Lymphocytes % 4.1 % (10-50); Mean Corpuscular HGB Conc 31.4 g/dL (31.8-35.4); Mean Corpuscular Volume 92.4 fl (81-99); Mean Platelet Volume 7.5 fl (7.4-10.4); Monocytes # 0.5 K/mm3 (0.1-1.0); Monocytes % 4.8 % (1.7-9.3); Neutrophils # 9.5 K/mm3 (1.8-7.8); Neutrophils % 90.6 % (37.0-80.0); Platelet Count 165 K/mm3 (142-424); Red Blood Count 4.02 M/mm3 (4.20-5.40); Red Cell Distribution Width 14.3 % (11.5-17.5); White Blood Count 10.5 K/mm3 (4.8-10.8)
[2021-04-11 06:22] LABS: MANUAL DIFFERENTIAL MANUAL DIFFERENTIAL (MANUAL DIFF)
[2021-04-11 06:32] LABS: Anion Gap 15.5 mEq/L (5-15); Blood Urea Nitrogen 55 mg/dl (7-17); Calcium 7.7 mg/dl (8.4-10.2); Carbon Dioxide 21 mmol/L (22.0-30.0); Chloride 112 mmol/L (98-107); Creatinine Clearance Estimated 48 mL/min (50-200); Estimated Glomerular Filt Rate 25 ml/min (>60); GFR (African American) 30 ML/MIN (>60); Glucose 165 mg/dl (74-100); Potassium 4.5 mmoL/L (3.5-5.1); Sodium 144 mmol/L (136-145)
[2021-04-11 06:45] LABS: Hypochromasia 1+; Lymphocytes % 14 % (10-50); Neutrophils % 76 % (42-76); Platelet Estimate Normal; Rouleaux 1+; Total Cells Counted 100
[2021-04-11 06:45] LABS: POC Glucose,Bedside 182 (70-110)
--- NOTE | 2021-04-11 08:21 | PC.NURSE ---
Called RT at 0815 in RE to pt being placed on bipap in re to sats 84%-87 % on non rebreather
--- NOTE | 2021-04-11 08:30 | PC.NURSE ---
Sputum sent to lab.
--- NOTE | 2021-04-11 08:34 | XR_ITS ---
PROCEDURE INFORMATION: Exam: XR Chest Exam date and time: 04/11/2021 8:34 AM Age: 66 years old Clinical indication: Shortness of breath; Additional info: F/u covid pneumonia TECHNIQUE: Imaging protocol: XR of the chest. Views: 1 view. COMPARISON: CR XR CHEST PORTABLE 04/08/2021 5:34 AM FINDINGS: Tubes, catheters and devices: There are sternal wires. Lungs: There has been interval progression of bilateral airspace disease. Pleural spaces: No pleural effusion. No pneumothorax. Heart/Mediastinum: There is stable mild to moderate cardiomegaly. Bones/joints: Unremarkable for age. IMPRESSION: Interval progression of airspace disease.
--- NOTE | 2021-04-11 08:45 | HMH.ACPN2 ---
Internal Medicine - PN: Subj *Date: 04/11/21 *Time: 08:45 Interval history: Did well through the day yesterday but last evening became more short of breath with sats in the low 80s. Vapotherm was ordered but all Vapotherm units in the facility are in use with other Covid patients. Patient placed on nonrebreather mask and was able to maintain sats in the low 90s through the night but did desaturate with minimal activity in the bed. This morning she continues to feel short of breath and sats are running in the mid 80s on the nonrebreather mask. Exam Vital signs and Labs for Last 24 Hours: Temp Pulse Resp BP Pulse Ox 97.4 F L 70 20 152/66 H 87 L 04/11/21 07:58 04/11/21 07:58 04/11/21 07:58 04/11/21 07:58 04/11/21 07:58 Laboratory Results - last 24 hr 04/10/21 11:44: POC Glucose 242 H 04/10/21 16:35: POC Glucose 184 H 04/10/21 21:09: POC Glucose 149 H 04/11/21 05:45: WBC 10.5 D, RBC 4.02 L, Hgb 11.6 L, Hct 37.1, MCV 92.4, MCH 29.0, MCHC 31.4 L, RDW 14.3, Plt Count 165, MPV 7.5, Neut % (Auto) 90.6 H, Lymph % (Auto) 4.1 L, [place] % (Auto) 4.8, Eos % (Auto) 0.2, Baso % (Auto) 0.3, Neut # (Auto) 9.5 H, Lymph # (Auto) 0.4 L, [place] # (Auto) 0.5, Eos # (Auto) 0.0, Baso # (Auto) 0.0, Total Counted 100, Neutrophils % (Manual) 76, Band Neutrophils % 10.0 H, Lymphocytes % (Manual) 14, Platelet Estimate Normal, Hypochromasia 1+, Rouleaux 1+ 04/11/21 05:45: Sodium 144, Potassium 4.5, Chloride 112 H, Carbon Dioxide 21 L, Anion Gap 15.5 H, BUN 55 H D, Creatinine 2.00 H, Estimated Creat Clear 48, Estimated GFR 25 L, Est GFR ( Amer) 30 L, Glucose 165 H, Calcium 7.7 L 04/11/21 05:57: POC Glucose 182 H I & O for Last 24 hours: Intake & Output 04/08/21 04/09/21 04/10/21 04/11/21 11:59 11:59 11:59 11:59 Intake Total 1240 / 1240 580 / 580 1849 / 1849 1205 / 1205 Output Total 770 / 770 1025 / 1025 700 / 700 875 / 875 Balance 470 / 470 -445 / -445 1149 / 1149 330 / 330 Weight 252 lb 246 lb 14.684 oz 259 lb 12.8 oz 249 lb 5 oz Narrative: She is alert and conversant. She is dyspneic with talking. Lungs are diminished anteriorly with bibasilar rales. No wheezes. Heart is distant but regular. Abdomen is soft and nondistended with no tenderness. Assessment and Plan (1) Pneumonia due to COVID-19 virus Status: Acute Category: Medical Code(s): U07.1 - COVID-19; J12.82 - Pneumonia due to coronavirus disease 2019 (2) MARIANO (acute kidney injury) Status: Acute Category: Medical Code(s): N17.9 - Acute kidney failure, unspecified (3) Elevated troponin Status: Acute Category: Medical Code(s): R77.8 - Other specified abnormalities of plasma proteins (4) Pneumonia due to COVID-19 virus Status: Acute Category: Medical Code(s): U07.1 - COVID-19; J12.82 - Pneumonia due to coronavirus disease 2018 (5) Thrombocytopenia associated with COVID-19 Status: Acute Category: Medical Code(s): U07.1 - COVID-19; D69.59 - Other secondary thrombocytopenia (6) CAD (coronary artery disease) Status: Chronic Qualifiers: Coronary Disease-Associated Artery/Lesion type: [place] artery [place] vs. transplanted heart: [place] heart Associated angina: with other forms of angina Qualified Code(s): I25.118 - Atherosclerotic heart disease of [place] coronary artery with other forms of angina pectoris Category: Medical Code(s): I25.10 - Atherosclerotic heart disease of [place] coronary artery without angina pectoris (7) HLD (hyperlipidemia) Status: Chronic Qualifiers: Hyperlipidemia type: mixed hyperlipidemia Qualified Code(s): E78.2 - Mixed hyperlipidemia Category: Medical Code(s): E78.5 - Hyperlipidemia, unspecified (8) HTN (hypertension) Status: Chronic Qualifiers: Hypertension type: essential hypertension Category: Medical Code(s): I10 - Essential (primary) hypertension (9) Morbid obesity with body mass index (BMI) of 40.0 to 49.9 Status: Chronic Category: Medical Code(s):
--- NOTE | 2021-04-11 09:52 | PC.NURSE ---
Pt placed on bipap at this time.
--- NOTE | 2021-04-11 17:09 | PC.NURSE ---
PT HAS REMAINED IN BIPAP SINCE THIS NURSE ASSUMED CARE AT 1200. SHE IS AOX4, ABLE TO MAKE NEEDS KNOWN TOSTAFF, SHE DENIES N/V/D AND PAIN. VITAL SIGNS HAVE REMAINED STABLE
--- NOTE | 2021-04-11 17:59 | HMH.ACPN ---
Internal Medicine - PN: Subj *Date: 04/11/21 *Time: 17:59 Exam Vital signs and Labs for Last 24 Hours: Temp Pulse Resp BP Pulse Ox 97.7 F 72 20 160/69 H 92 L 04/11/21 15:37 04/11/21 15:37 04/11/21 15:37 04/11/21 15:37 04/11/21 15:37 Laboratory Results - last 24 hr 04/10/21 21:09: POC Glucose 149 H 04/11/21 05:45: WBC 10.5 D, RBC 4.02 L, Hgb 11.6 L, Hct 37.1, MCV 92.4, MCH 29.0, MCHC 31.4 L, RDW 14.3, Plt Count 165, MPV 7.5, Neut % (Auto) 90.6 H, Lymph % (Auto) 4.1 L, [place] % (Auto) 4.8, Eos % (Auto) 0.2, Baso % (Auto) 0.3, Neut # (Auto) 9.5 H, Lymph # (Auto) 0.4 L, [place] # (Auto) 0.5, Eos # (Auto) 0.0, Baso # (Auto) 0.0, Total Counted 100, Neutrophils % (Manual) 76, Band Neutrophils % 10.0 H, Lymphocytes % (Manual) 14, Platelet Estimate Normal, Hypochromasia 1+, Rouleaux 1+ 04/11/21 05:45: Sodium 144, Potassium 4.5, Chloride 112 H, Carbon Dioxide 21 L, Anion Gap 15.5 H, BUN 55 H D, Creatinine 2.00 H, Estimated Creat Clear 48, Estimated GFR 25 L, Est GFR ( Amer) 30 L, Glucose 165 H, Calcium 7.7 L 04/11/21 05:57: POC Glucose 182 H I & O for Last 24 hours: Intake & Output 04/08/21 04/09/21 04/10/21 04/11/21 23:59 23:59 23:59 23:59 Intake Total 1640 / 1640 720 / 720 2154 / 2154 360 / 360 Output Total 1470 / 1670 725 / 1025 850 / 1125 825 / 825 Balance 170 / -30 -5 / -305 1304 / 1029 -465 / -465 Weight 114.305 kg 112 kg 117.843 kg 113.086 kg Microbiology Reports for the Last 24 Hours: Microbiology 04/08/21 06:40 Sputum - Expectorated Sputum Gram Stain - Final Assessment and Plan (1) Pneumonia due to COVID-19 virus Status: Acute Category: Medical Code(s): U07.1 - COVID-19; J12.82 - Pneumonia due to coronavirus disease 2019 (2) MARIANO (acute kidney injury) Status: Acute Category: Medical Code(s): N17.9 - Acute kidney failure, unspecified (3) Elevated troponin Status: Acute Category: Medical Code(s): R77.8 - Other specified abnormalities of plasma proteins (4) Pneumonia due to COVID-19 virus Status: Acute Category: Medical Code(s): U07.1 - COVID-19; J12.82 - Pneumonia due to coronavirus disease 2018 (5) Thrombocytopenia associated with COVID-19 Status: Acute Category: Medical Code(s): U07.1 - COVID-19; D69.59 - Other secondary thrombocytopenia (6) CAD (coronary artery disease) Status: Chronic Qualifiers: Coronary Disease-Associated Artery/Lesion type: [place] artery [place] vs. transplanted heart: [place] heart Associated angina: with other forms of angina Qualified Code(s): I25.118 - Atherosclerotic heart disease of [place] coronary artery with other forms of angina pectoris Category: Medical Code(s): I25.10 - Atherosclerotic heart disease of [place] coronary artery without angina pectoris (7) HLD (hyperlipidemia) Status: Chronic Qualifiers: Hyperlipidemia type: mixed hyperlipidemia Qualified Code(s): E78.2 - Mixed hyperlipidemia Category: Medical Code(s): E78.5 - Hyperlipidemia, unspecified (8) HTN (hypertension) Status: Chronic Qualifiers: Hypertension type: essential hypertension Category: Medical Code(s): I10 - Essential (primary) hypertension (9) Morbid obesity with body mass index (BMI) of 40.0 to 49.9 Status: Chronic Category: Medical Code(s): E66.01 - Morbid (severe) obesity due to excess calories (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 difficile colitis Status: Acute
[2021-04-11 23:30] LABS: POC Glucose,Bedside 180 (70-110)
[2021-04-12] VITALS (13 sets, daily range): BP systolic 158–189; BP diastolic 76–88; PULSE 70–82; RESP 7–36; TEMP 36.6–36.8; O2SAT 92–97; BMI 40.5
[2021-04-12 02:05] LABS: POC Glucose,Bedside 199 (70-110)
--- NOTE | 2021-04-12 03:10 | PC.NURSE ---
PT IS A&OX4. PT CONTINUES TO BE ON BIPAP. 02 SAT 87-92%. WHEN BIPAP IS REMOVED FOR MORE THAN 10 SECONDS, O2 SAT DROPS TO LOW 70S. THIS NURSE HAS BEEN ABLE TO GIVE PATIENT A COUPLE DRINKS, AND PROVIDE MOUTH CARE X1 THIS SHIFT. THIS HAS TO BE DONE QUICKLY. HAVE NOT GIVEN PT PO MEDS THIS SHIFT, SHE CANNOT TOLERATE BEING OFF THE BIPAP FOR THE NECESSARY AMOUNT OF TIME. PT IS A&OX4. PT HAS BEEN IN POOR SPIRITS. VSS AT THIS TIME, WILL CONTINUE TO MONITOR. PT WISHES TO REMAIN A FULL CODE.
[2021-04-12 08:36] LABS: Anion Gap 14.4 mEq/L (5-15); Blood Urea Nitrogen 57 mg/dl (7-17); Calcium 8.1 mg/dl (8.4-10.2); Carbon Dioxide 22 mmol/L (22.0-30.0); Chloride 114 mmol/L (98-107); Creatinine Clearance Estimated 51 mL/min (50-200); Estimated Glomerular Filt Rate 26 ml/min (>60); GFR (African American) 32 ML/MIN (>60); Glucose 197 mg/dl (74-100); Potassium 4.4 mmoL/L (3.5-5.1); Sodium 146 mmol/L (136-145)
--- NOTE | 2021-04-12 08:43 | HMH.ACPN2 ---
<Julia Lopez - Last Filed: 04/12/21 08:43> Internal Medicine - PN: Subj *Date: 04/12/21 *Time: 08:43 Interval history: Cannot understand patient. She remains on BiPAP. With sign language she indicates that she is doing about the same. Per nursing: Patient is unable to to have BiPAP off even to take a drink of water due to O2 sats dropping in the 70s and thus she has not gotten any of her p.o. meds. Patient indicates that she is having no pain. Renal function has slightly improved with a BUN of 57 and creatinine of 1.9. Sodium is 146 and potassium is 4.4. CBC shows a white count of 10,500 with a hemoglobin of 11.6 and hematocrit of 37.1. Priority meds would be Norvasc 5 mg daily, aspirin 81 mg, carvedilol 12.5 mg twice daily, irbesartan 75 mg daily and Ranexa 500 mg twice daily. Exam Vital signs and Labs for Last 24 Hours: Temp Pulse Resp BP Pulse Ox 98.1 F 79 22 177/81 H 97 04/12/21 08:00 04/12/21 08:00 04/12/21 08:00 04/12/21 08:00 04/12/21 08:00 Laboratory Results - last 24 hr 04/11/21 16:33: POC Glucose 199 H 04/11/21 20:06: POC Glucose 180 H 04/12/21 08:05: Sodium 146 H, Potassium 4.4, Chloride 114 H, Carbon Dioxide 22, Anion Gap 14.4, BUN 57 H, Creatinine 1.90 H, Estimated Creat Clear 51, Estimated GFR 26 L, Est GFR ( Amer) 32 L, Glucose 197 H, Calcium 8.1 L I & O for Last 24 hours: Intake & Output 04/09/21 04/10/21 04/11/21 04/12/21 11:59 11:59 11:59 11:59 Intake Total 580 / 580 1849 / 1849 1205 / 1205 240 / 240 Output Total 1025 / 1025 700 / 700 875 / 875 1125 / 1125 Balance -445 / -445 1149 / 1149 330 / 330 -885 / -885 Weight 246 lb 14.684 oz 259 lb 12.8 oz 249 lb 5 oz 252 lb 5 oz Microbiology Reports for the Last 24 Hours: Microbiology 04/08/21 06:40 Sputum - Expectorated Sputum Gram Stain - Final - Constitutional no acute distress, obese Comments: Alert and oriented. Unable to understand patient with BiPAP on. She cannot assist with exam. - *Routine Respiratory Exam Present: CTA bilaterally (Anteriorly) - *Routine Cardiovascular Exam Present: RRR (70s to 80) - *Routine Abdominal Exam Present: soft, normoactive bowel sounds. Absent: obese - *Routine Extremities Exam Present: edema (Trace bilaterally). Absent: calf tenderness - *Routine Neurological Exam Present: alert, oriented X3 (Difficult to tell the exact orientation.) Assessment and Plan (1) Pneumonia due to COVID-19 virus Status: Acute Category: Medical Code(s): U07.1 - COVID-19; J12.82 - Pneumonia due to coronavirus disease 2019 (2) MARIANO (acute kidney injury) Status: Acute Category: Medical Code(s): N17.9 - Acute kidney failure, unspecified (3) Elevated troponin Status: Acute Category: Medical Code(s): R77.8 - Other specified abnormalities of plasma proteins (4) Pneumonia due to COVID-19 virus Status: Acute Category: Medical Code(s): U07.1 - COVID-19; J12.82 - Pneumonia due to coronavirus disease 2018 (5) Thrombocytopenia associated with COVID-19 Status: Acute Category: Medical Code(s): U07.1 - COVID-19; D69.59 - Other secondary thrombocytopenia (6) CAD (coronary artery disease) Status: Chronic Qualifiers: Coronary Disease-Associated Artery/Lesion type: [place] artery [place] vs. transplanted heart: [place] heart Associated angina: with other forms of angina Qualified Code(s): I25.118 - Atherosclerotic heart disease of [place] coronary artery with other forms of angina pectoris Category: Medical Code(s): I25.10 - Atherosclerotic heart disease of [place] coronary artery without angina pectoris (7) HLD (hyperlipidemia) Status: Chronic Qualifiers: Hyperlipidemia type: mixed hyperlipidemia Qualified Code(s): E78.2 - Mixed hyperlipidemia Category: Medical Code(s): E78.5 - Hyperlipidemia, unspecified (8) HTN (hypertension) Status: Chronic Qualifiers: Hypertension type: essential hypertension Category: Me
--- NOTE | 2021-04-12 09:37 | HMH.PULMPN ---
Internal Medicine - PN: Subj *Date: 04/12/21 *Time: 11:32 Interval history: Patient respiratory status continued to worsen over the weekend and eventually needing BiPAP to maintain adequate oxygen saturations. Exam - Constitutional Constitutional:: Present: no acute distress, comfortable - HENMT Exam HENMT: Present: normocephalic, atraumatic - Eye Exam Eyes:: Present: normal appearance both eyes and related structures - Neck Exam Neck:: Present: normal visual inspection - Respiratory Exam Respiratory:: Present: able to speak in complete sentences, respiratory distress, crackles. Absent: wheezing - Cardiovascular Exam Cardiac:: Present: S1, S2 - GI Exam GI:: Present: soft, obese - Skin Exam Skin: Present: warm, no rash - Neurological Exam Neurological: Present: alert, awake, normal cognition - Extremities Exam Extremities: Present: no cyanosis, no clubbing, no edema Assessment and Plan (1) Pneumonia due to COVID-19 virus Status: Acute Category: Medical Code(s): U07.1 - COVID-19; J12.82 - Pneumonia due to coronavirus disease 2019 (2) MARIANO (acute kidney injury) Status: Acute Category: Medical Code(s): N17.9 - Acute kidney failure, unspecified (3) Elevated troponin Status: Acute Category: Medical Code(s): R77.8 - Other specified abnormalities of plasma proteins (4) Pneumonia due to COVID-19 virus Status: Acute Category: Medical Code(s): U07.1 - COVID-19; J12.82 - Pneumonia due to coronavirus disease 2019 (5) Thrombocytopenia associated with COVID-19 Status: Acute Category: Medical Code(s): U07.1 - COVID-19; D69.59 - Other secondary thrombocytopenia (6) CAD (coronary artery disease) Status: Chronic Qualifiers: Coronary Disease-Associated Artery/Lesion type: [place] artery [place] vs. transplanted heart: [place] heart Associated angina: with other forms of angina Qualified Code(s): I25.118 - Atherosclerotic heart disease of [place] coronary artery with other forms of angina pectoris Category: Medical Code(s): I25.10 - Atherosclerotic heart disease of [place] coronary artery without angina pectoris (7) HLD (hyperlipidemia) Status: Chronic Qualifiers: Hyperlipidemia type: mixed hyperlipidemia Qualified Code(s): E78.2 - Mixed hyperlipidemia Category: Medical Code(s): E78.5 - Hyperlipidemia, unspecified (8) HTN (hypertension) Status: Chronic Qualifiers: Hypertension type: essential hypertension Category: Medical Code(s): I10 - Essential (primary) hypertension (9) Morbid obesity with body mass index (BMI) of 40.0 to 49.9 Status: Chronic Category: Medical Code(s): E66.01 - Morbid (severe) obesity due to excess calories (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 difficile colitis Status: Acute Category: Medical Code(s): A04.72 - Enterocolitis due to Clostridium difficile, not specified as recurrent - Assessment and plan all Dx Assessment and Plan for all problems:: #Acute hypoxic respiratory failure: #COVID-19 pneumonia: 66-year-old yet to be vaccinated never smoker no prior respiratory complaints presented with worsening fatigue weakness, diarrhea and respiratory distress for the last week and found to be COVID-19 positive. Her other comorbidities including CKD, diabetes mellitus, dyslipidemia and CAD Chest x-ray admission bilateral lower lobe pulmonary infiltrates along with concerning left-si
--- NOTE | 2021-04-12 10:49 | DIET.NUTRFU ---
Addendum entered by Kia Smith 04/16/21 16:47: Pt currently unable to tolerate meaningful PO intake dt desating when Bipap is removed, please assist with PO intake and encourage supplements when pt is able to tolerate. Weight stable, BG moderate- avg. 170, still no BM. Addendum entered by Kia Smith 04/14/21 14:18: PO intakes continue to be poor 0-25%, she was able to eat about 50% of dinner last night. BID supplements added to order. Weight stable. No BM since 04/12. BG moderate- avg. 180. Original Note: Pt unable to eat past 2 meals or even drink more than a few sips dt Bipap need. Recommend IVF. If pt able to take off Bipap for short time period, please encourage nutritional supplement. Weight stable, Diarrhea continues but with some improvement, BG moderate- avg. 180.
[2021-04-12 11:01] LABS: POC Glucose,Bedside 204 (70-110)
[2021-04-12 12:05] LABS: POC Glucose,Bedside 192 (70-110)
[2021-04-12 17:40] LABS: POC Glucose,Bedside 209 (70-110)
[2021-04-12 21:00] LABS: POC Glucose,Bedside 214 (70-110)
[2021-04-13] VITALS (12 sets, daily range): BP systolic 145–186; BP diastolic 69–98; PULSE 69–88; RESP 9–28; TEMP 35.9–37.1; O2SAT 85–96; BMI 40.5
[2021-04-13 06:20] LABS: POC Glucose,Bedside 216 (70-110)
[2021-04-13 07:07] LABS: Anion Gap 14.4 mEq/L (5-15); Blood Urea Nitrogen 60 mg/dl (7-17); Calcium 8.3 mg/dl (8.4-10.2); Carbon Dioxide 21 mmol/L (22.0-30.0); Chloride 116 mmol/L (98-107); Creatinine Clearance Estimated 57 mL/min (50-200); Estimated Glomerular Filt Rate 30 ml/min (>60); GFR (African American) 36 ML/MIN (>60); Glucose 227 mg/dl (74-100); Potassium 4.4 mmoL/L (3.5-5.1); Sodium 147 mmol/L (136-145)
[2021-04-13 07:13] LABS: Basophils % 0.6 % (0.1-2.0); Eosinophils % 0.2 % (0.1-12.0); Hematocrit 38.9 % (37.0-47.0); Hemoglobin 12.5 g/dL (12.2-16.2); Lymphocytes # 0.4 K/mm3 (0.7-4.5); Lymphocytes % 6.6 % (10-50); Mean Corpuscular HGB Conc 32.1 g/dL (31.8-35.4); Mean Corpuscular Hemoglobin 29.4 pg (27.0-31.2); Mean Corpuscular Volume 91.6 fl (81-99); Mean Platelet Volume 7.5 fl (7.4-10.4); Monocytes # 0.4 K/mm3 (0.1-1.0); Monocytes % 6.6 % (1.7-9.3); Neutrophils # 5.7 K/mm3 (1.8-7.8); Neutrophils % 85.9 % (37.0-80.0); Platelet Count 218 K/mm3 (142-424); Red Blood Count 4.25 M/mm3 (4.20-5.40); Red Cell Distribution Width 14.7 % (11.5-17.5); White Blood Count 6.6 K/mm3 (4.8-10.8)
[2021-04-13 07:29] LABS: MANUAL DIFFERENTIAL MANUAL DIFFERENTIAL (MANUAL DIFF)
[2021-04-13 09:00] LABS: Lymphocytes % 11 % (10-50); Monocytes % 5 % (2-9); Neutrophils % 84 % (42-76); Total Cells Counted 100
[2021-04-13 09:01] LABS: Platelet Estimate Normal
--- NOTE | 2021-04-13 09:10 | HMH.ACPN2 ---
<Julia Lopez - Last Filed: 04/13/21 09:10> Internal Medicine - PN: Subj *Date: 04/13/21 *Time: 09:10 Interval history: Patient remains on BiPAP. She does desat when off for only a few minutes. According to documentation she was able to take some of her p.o. meds yesterday. She is very difficult to communicate with. She is drinking a small amount but is not eating due to BiPAP. No further documentation of any stools. Very poor eye contact and does not indicate yes and no to questions. CBC is satisfactory this morning with a hemoglobin of 12.5 hematocrit 38.9. White blood cell count is 6600. Blood chemistries show a sodium of 147 and potassium of 4.4. BUN is 60 with a creatinine of 1.7. Exam Vital signs and Labs for Last 24 Hours: Temp Pulse Resp BP Pulse Ox 98.4 F 80 20 176/85 H 95 04/13/21 08:00 04/13/21 08:00 04/13/21 08:00 04/13/21 08:00 04/13/21 08:00 Laboratory Results - last 24 hr 04/12/21 04:56: POC Glucose 204 H 04/12/21 11:15: POC Glucose 192 H 04/12/21 17:01: POC Glucose 209 H 04/12/21 20:33: POC Glucose 214 H 04/13/21 06:09: POC Glucose 216 H 04/13/21 06:23: WBC 6.6 D, RBC 4.25, Hgb 12.5, Hct 38.9, MCV 91.6, MCH 29.4, MCHC 32.1, RDW 14.7, Plt Count 218 D, MPV 7.5, Neut % (Auto) 85.9 H, Lymph % (Auto) 6.6 L, [place] % (Auto) 6.6, Eos % (Auto) 0.2, Baso % (Auto) 0.6, Neut # (Auto) 5.7, Lymph # (Auto) 0.4 L, [place] # (Auto) 0.4, Eos # (Auto) 0.0, Baso # (Auto) 0.0, Total Counted 100, Neutrophils % (Manual) 84 H, Lymphocytes % (Manual) 11, Monocytes % (Manual) 5, Platelet Estimate Normal 04/13/21 06:23: Sodium 147 H, Potassium 4.4, Chloride 116 H, Carbon Dioxide 21 L, Anion Gap 14.4, BUN 60 H, Creatinine 1.70 H, Estimated Creat Clear 57, Estimated GFR 30 L, Est GFR ( Amer) 36 L, Glucose 227 H, Calcium 8.3 L I & O for Last 24 hours: Intake & Output 04/10/21 04/11/21 04/12/21 04/13/21 11:59 11:59 11:59 11:59 Intake Total 1849 / 1849 1205 / 1205 240 / 240 1025 / 1025 Output Total 700 / 700 875 / 875 1125 / 1125 1685 / 1685 Balance 1149 / 1149 330 / 330 -885 / -885 -660 / -660 Weight 259 lb 12.8 oz 249 lb 5 oz 252 lb 5 oz 252 lb 2 oz Microbiology Reports for the Last 24 Hours: Microbiology 04/08/21 06:40 Sputum - Expectorated Sputum Gram Stain - Final 04/08/21 06:40 Sputum - Expectorated Sputum Sputum Culture - Preliminary 04/07/21 22:10 Blood Blood Culture - Final NO GROWTH AFTER 5 DAYS 04/07/21 22:10 Blood Blood Culture - Final NO GROWTH AFTER 5 DAYS - Constitutional no acute distress - *Routine Respiratory Exam Present: CTA bilaterally, diminished air movement (in bases) - *Routine Cardiovascular Exam Present: RRR - *Routine Abdominal Exam Present: soft, normoactive bowel sounds. Absent: tenderness, distended - *Routine Extremities Exam Absent: edema, calf tenderness - *Routine Neurological Exam Present: alert Difficult to communicate with patient. She makes no eye contact. Assessment and Plan (1) Acute respiratory failure Status: Acute Category: Medical Code(s): J96.00 - Acute respiratory failure, unspecified whether with hypoxia or hypercapnia (2) Pneumonia due to COVID-19 virus Status: Acute Category: Medical Code(s): U07.1 - COVID-19; J12.82 - Pneumonia due to coronavirus disease 2019 (3) MARIANO (acute kidney injury) Status: Acute Category: Medical Code(s): N17.9 - Acute kidney failure, unspecified (4) Elevated troponin Status: Acute Category: Medical Code(s): R77.8 - Other specified abnormalities of plasma proteins (5) Pneumonia due to COVID-19 virus Status: Acute Category: Medical Code(s): U07.1 - COVID-19; J12.82 - Pneumonia due to coronavirus disease 2018 (6) Thrombocytopenia associated with COVID-19 Status: Acute Category: Medical Code(s): U07.1 - COVID-19; D69.59 - Other secondary thrombocytopenia (7) CAD (coronary artery disease)
--- NOTE | 2021-04-13 10:51 | HMH.PULMPN ---
Internal Medicine - PN: Subj *Date: 04/13/21 *Time: 10:51 Interval history: No acute respiratory events overnight. Patient admits worsening respiratory status today. Exam - Constitutional Constitutional:: Absent: comfortable - HENMT Exam HENMT: Present: normocephalic, atraumatic - Eye Exam Eyes:: Present: normal appearance both eyes and related structures - Neck Exam Neck:: Present: normal visual inspection - Respiratory Exam Respiratory:: Present: respiratory distress, crackles. Absent: able to speak in complete sentences - Cardiovascular Exam Cardiac:: Present: S1, S2 - GI Exam GI:: Present: soft - Skin Exam Skin: Present: warm, no rash - Neurological Exam Neurological: Present: alert, awake - Extremities Exam Extremities: Present: no cyanosis, no clubbing, no edema Assessment and Plan (1) Acute respiratory failure Status: Acute Category: Medical Code(s): J96.00 - Acute respiratory failure, unspecified whether with hypoxia or hypercapnia (2) Pneumonia due to COVID-19 virus Status: Acute Category: Medical Code(s): U07.1 - COVID-19; J12.82 - Pneumonia due to coronavirus disease 2019 (3) MARIANO (acute kidney injury) Status: Acute Category: Medical Code(s): N17.9 - Acute kidney failure, unspecified (4) Elevated troponin Status: Acute Category: Medical Code(s): R77.8 - Other specified abnormalities of plasma proteins (5) Pneumonia due to COVID-19 virus Status: Acute Category: Medical Code(s): U07.1 - COVID-19; J12.82 - Pneumonia due to coronavirus disease 2019 (6) Thrombocytopenia associated with COVID-19 Status: Acute Category: Medical Code(s): U07.1 - COVID-19; D69.59 - Other secondary thrombocytopenia (7) CAD (coronary artery disease) Status: Chronic Qualifiers: Coronary Disease-Associated Artery/Lesion type: [place] artery [place] vs. transplanted heart: [place] heart Associated angina: with other forms of angina Qualified Code(s): I25.118 - Atherosclerotic heart disease of [place] coronary artery with other forms of angina pectoris Category: Medical Code(s): I25.10 - Atherosclerotic heart disease of [place] coronary artery without angina pectoris (8) HLD (hyperlipidemia) Status: Chronic Qualifiers: Hyperlipidemia type: mixed hyperlipidemia Qualified Code(s): E78.2 - Mixed hyperlipidemia Category: Medical Code(s): E78.5 - Hyperlipidemia, unspecified (9) HTN (hypertension) Status: Chronic Qualifiers: Hypertension type: essential hypertension Category: Medical Code(s): I10 - Essential (primary) hypertension (10) Morbid obesity with body mass index (BMI) of 40.0 to 49.9 Status: Chronic Category: Medical Code(s): E66.01 - Morbid (severe) obesity due to excess calories (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 difficile colitis Status: Acute Category: Medical Code(s): A04.72 - Enterocolitis due to Clostridium difficile, not specified as recurrent - Assessment and plan all Dx Assessment and Plan for all problems:: #Acute hypoxic respiratory failure: #COVID-19 pneumonia: 66-year-old yet to be vaccinated never smoker no prior respiratory complaints presented with worsening fatigue weakness, diarrhea and respiratory distress for the last week and found to be COVID-19 positive. Her other comorbidities including CKD, diabetes mellitus, dyslipidemia and CAD Chest x-ray admission bilat
--- NOTE | 2021-04-13 10:52 | XR_ITS ---
PROCEDURE: XR CHEST PORTABLE CLINICAL HISTORY: pnm Follow-up pneumonia COMPARISON: CR XR CHEST PORTABLE from 04/07/2021 CR XR CHEST PORTABLE from 04/08/2021 CR XR CHEST PORTABLE from 04/11/2021 FINDINGS: Cardiomegaly without failure. Prior median sternotomy. Diffuse bilateral alveolar disease with sparing of the upper lung zone not significantly changed. No evidence of pneumothorax. No acute bony abnormalities. IMPRESSION: No change bilateral pneumonia Dictated by: Laron Jimenez MD 04/13/2021 11:33 Laron Jimenez MD in [facility] 04/13/2021 11:33
[2021-04-13 11:18] LABS: POC Glucose,Bedside 184 (70-110)
[2021-04-13 17:17] LABS: POC Glucose,Bedside 177 (70-110)
--- NOTE | 2021-04-13 17:42 | PC.NURSE ---
pt has had several episodes of desaturation during exertion, pt does require several minutes to recover
[2021-04-13 22:12] LABS: POC Glucose,Bedside 165 (70-110)
[2021-04-14] VITALS (14 sets, daily range): BP systolic 127–178; BP diastolic 66–88; PULSE 59–80; RESP 18–40; TEMP 36.3–36.7; O2SAT 85–99; BMI 40.1
[2021-04-14 06:17] LABS: POC Glucose,Bedside 186 (70-110)
--- NOTE | 2021-04-14 06:43 | PC.NURSE ---
Patient has had uneventful night this shift; she has taken off her nasal cannula several times and O2 sats decreased to mid 50's. Have applied tegaderm to hold in place on b/l cheeks. No s/s of acute distress noted, call light within reach, bed at lowest level for safety; will continue to monitor.
--- NOTE | 2021-04-14 08:21 | HMH.ACPN2 ---
<Julia Lopez - Last Filed: 04/14/21 08:21> Internal Medicine - PN: Subj *Date: 04/14/21 *Time: 08:21 Interval history: Patient is now on high flow oxygen at 100%. She states she is feeling and breathing somewhat better this morning. She does not feel like eating. She is taking liquids periodically. She continues with Cole catheter to bedside drainage. Per nursing: Patient continues to desat with exertion. Currently O2 sats are high 80s and low 90s on Vapotherm. Exam Vital signs and Labs for Last 24 Hours: Temp Pulse Resp BP Pulse Ox 97.8 F 72 24 178/82 H 93 L 04/14/21 04:00 04/14/21 06:20 04/14/21 04:00 04/14/21 04:00 04/14/21 06:20 Laboratory Results - last 24 hr 04/13/21 06:23: Total Counted 100, Neutrophils % (Manual) 84 H, Lymphocytes % (Manual) 11, Monocytes % (Manual) 5, Platelet Estimate Normal 04/13/21 11:07: POC Glucose 184 H 04/13/21 16:59: POC Glucose 177 H 04/13/21 20:14: POC Glucose 165 H 04/14/21 06:06: POC Glucose 186 H I & O for Last 24 hours: Intake & Output 04/11/21 04/12/21 04/13/21 04/14/21 11:59 11:59 11:59 11:59 Intake Total 1205 / 1205 240 / 240 1025 / 1025 1540 / 1540 Output Total 875 / 875 1125 / 1125 1685 / 1685 2300 / 2300 Balance 330 / 330 -885 / -885 -660 / -660 -760 / -760 Weight 249 lb 5 oz 252 lb 5 oz 252 lb 2 oz 249 lb 12.8 oz Microbiology Reports for the Last 24 Hours: Microbiology 04/08/21 06:40 Sputum - Expectorated Sputum Gram Stain - Final 04/08/21 06:40 Sputum - Expectorated Sputum Sputum Culture - Preliminary - Constitutional no acute distress Comments: Appears comfortable - *Routine Respiratory Exam Present: CTA bilaterally (Anteriorly) - *Routine Cardiovascular Exam Present: RRR - *Routine Abdominal Exam Present: soft, normoactive bowel sounds, obese. Absent: tenderness - *Routine Extremities Exam Absent: edema, calf tenderness - *Routine Neurological Exam Present: alert Assessment and Plan (1) Acute respiratory failure Status: Acute Category: Medical Code(s): J96.00 - Acute respiratory failure, unspecified whether with hypoxia or hypercapnia (2) Pneumonia due to COVID-19 virus Status: Acute Category: Medical Code(s): U07.1 - COVID-19; J12.82 - Pneumonia due to coronavirus disease 2019 (3) MARIANO (acute kidney injury) Status: Acute Category: Medical Code(s): N17.9 - Acute kidney failure, unspecified (4) Elevated troponin Status: Acute Category: Medical Code(s): R77.8 - Other specified abnormalities of plasma proteins (5) Pneumonia due to COVID-19 virus Status: Acute Category: Medical Code(s): U07.1 - COVID-19; J12.82 - Pneumonia due to coronavirus disease 2019 (6) Thrombocytopenia associated with COVID-19 Status: Acute Category: Medical Code(s): U07.1 - COVID-19; D69.59 - Other secondary thrombocytopenia (7) CAD (coronary artery disease) Status: Chronic Qualifiers: Coronary Disease-Associated Artery/Lesion type: [place] artery [place] vs. transplanted heart: [place] heart Associated angina: with other forms of angina Qualified Code(s): I25.118 - Atherosclerotic heart disease of [place] coronary artery with other forms of angina pectoris Category: Medical Code(s): I25.10 - Atherosclerotic heart disease of [place] coronary artery without angina pectoris (8) HLD (hyperlipidemia) Status: Chronic Qualifiers: Hyperlipidemia type: mixed hyperlipidemia Qualified Code(s): E78.2 - Mixed hyperlipidemia Category: Medical Code(s): E78.5 - Hyperlipidemia, unspecified (9) HTN (hypertension) Status: Chronic Qualifiers: Hypertension type: essential hypertension Category: Medical Code(s): I10 - Essential (primary) hypertension (10) Morbid obesity with body mass index (BMI) of 40.0 to 49.9 Status: Chronic Category: Medical Code(s): E66.01 - Morbid (severe) obesity due to excess calories (11) Type 2 diabetes mellitus with neur
--- NOTE | 2021-04-14 09:34 | HMH.PULMPN ---
Internal Medicine - PN: Subj *Date: 04/14/21 *Time: 11:57 Interval history: No acute respiratory vents overnight. Exam - Constitutional Constitutional:: Absent: no acute distress, comfortable - HENMT Exam HENMT: Present: normocephalic, atraumatic - Eye Exam Eyes:: Present: normal appearance both eyes and related structures - Neck Exam Neck:: Present: normal visual inspection - Respiratory Exam Respiratory:: Present: able to speak in complete sentences, respiratory distress, decreased breath sounds, crackles - Cardiovascular Exam Cardiac:: Present: S1, S2 - GI Exam GI:: Present: soft, obese - Skin Exam Skin: Present: warm, no rash - Neurological Exam Neurological: Present: alert, normal cognition - Extremities Exam Extremities: Present: no cyanosis, no clubbing, edema Assessment and Plan (1) Acute respiratory failure Status: Acute Category: Medical Code(s): J96.00 - Acute respiratory failure, unspecified whether with hypoxia or hypercapnia (2) Pneumonia due to COVID-19 virus Status: Acute Category: Medical Code(s): U07.1 - COVID-19; J12.82 - Pneumonia due to coronavirus disease 2019 (3) MARIANO (acute kidney injury) Status: Acute Category: Medical Code(s): N17.9 - Acute kidney failure, unspecified (4) Elevated troponin Status: Acute Category: Medical Code(s): R77.8 - Other specified abnormalities of plasma proteins (5) Pneumonia due to COVID-19 virus Status: Acute Category: Medical Code(s): U07.1 - COVID-19; J12.82 - Pneumonia due to coronavirus disease 2019 (6) Thrombocytopenia associated with COVID-19 Status: Acute Category: Medical Code(s): U07.1 - COVID-19; D69.59 - Other secondary thrombocytopenia (7) CAD (coronary artery disease) Status: Chronic Qualifiers: Coronary Disease-Associated Artery/Lesion type: [place] artery [place] vs. transplanted heart: [place] heart Associated angina: with other forms of angina Qualified Code(s): I25.118 - Atherosclerotic heart disease of [place] coronary artery with other forms of angina pectoris Category: Medical Code(s): I25.10 - Atherosclerotic heart disease of [place] coronary artery without angina pectoris (8) HLD (hyperlipidemia) Status: Chronic Qualifiers: Hyperlipidemia type: mixed hyperlipidemia Qualified Code(s): E78.2 - Mixed hyperlipidemia Category: Medical Code(s): E78.5 - Hyperlipidemia, unspecified (9) HTN (hypertension) Status: Chronic Qualifiers: Hypertension type: essential hypertension Category: Medical Code(s): I10 - Essential (primary) hypertension (10) Morbid obesity with body mass index (BMI) of 40.0 to 49.9 Status: Chronic Category: Medical Code(s): E66.01 - Morbid (severe) obesity due to excess calories (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 difficile colitis Status: Acute Category: Medical Code(s): A04.72 - Enterocolitis due to Clostridium difficile, not specified as recurrent - Assessment and plan all Dx Assessment and Plan for all problems:: #Acute hypoxic respiratory failure: #COVID-19 pneumonia: 66-year-old yet to be vaccinated never smoker no prior respiratory complaints presented with worsening fatigue weakness, diarrhea and respiratory distress for the last week and found to be COVID-19 positive. Her other comorbidities including CKD, diabetes mellitus, dyslipidemia and CAD Chest x-ray admission bilatera
--- NOTE | 2021-04-14 11:22 | PC.NURSE ---
RESPIRATORY CARE NOTE: VAPOTHERM OXYGEN DECREASED TO 90% BY DR MORALES AT 1115, AND OXYGEN SATURATIONS REMAIN GREATER THAN 90%. WE WILL CONTINUE TO MONITOR PT..
--- NOTE | 2021-04-14 15:42 | XR_ITS ---
PROCEDURE: XR CHEST PORTABLE CLINICAL HISTORY: covid 19 Pneumonia COMPARISON: CR XR CHEST PORTABLE from 04/08/2021 CR XR CHEST PORTABLE from 04/11/2021 CR XR CHEST PORTABLE from 04/13/2021 FINDINGS: There is cardiomegaly without failure. Consolidation is present in both mid lower lung zones consistent with bilateral pneumonia not significantly changed. No acute bony abnormalities. IMPRESSION: No change bilateral lower lobe pneumonia Dictated by: Laron Jimenez MD 04/14/2021 16:23 Laron Jimenez MD in [facility] 04/14/2021 16:23
--- NOTE | 2021-04-14 15:54 | ECG_ITS ---
APPROVED REPORT Exam: Resting ECG HR:66 bpm ECG Measurements Heart Rate [address] 180 P 44 QRSd 96 QRS 0 QT 504 T 122 QTc 528 Conclusion Normal sinus rhythm Minimal voltage criteria for LVH, may be normal variant Nonspecific ST and T wave abnormality Prolonged QT Abnormal ECG Electronically signed by : Abraham Thomas MD 04/14/2021 20:27:56
[2021-04-14 16:06] LABS: Basophils % 0.7 % (0.1-2.0); Eosinophils % 0.2 % (0.1-12.0); Hemoglobin 12.5 g/dL (12.2-16.2); Lymphocytes # 0.5 K/mm3 (0.7-4.5); Lymphocytes % 10.4 % (10-50); MANUAL DIFFERENTIAL MANUAL DIFFERENTIAL (MANUAL DIFF); Mean Corpuscular HGB Conc 32.1 g/dL (31.8-35.4); Mean Corpuscular Hemoglobin 29.6 pg (27.0-31.2); Mean Corpuscular Volume 92.3 fl (81-99); Monocytes # 0.3 K/mm3 (0.1-1.0); Monocytes % 5.5 % (1.7-9.3); Neutrophils % 83.2 % (37.0-80.0); Platelet Count 188 K/mm3 (142-424); Red Blood Count 4.22 M/mm3 (4.20-5.40); Red Cell Distribution Width 14.9 % (11.5-17.5); White Blood Count 4.8 K/mm3 (4.8-10.8)
[2021-04-14 16:23] LABS: Alanine Aminotransferase 227 U/L (12-78); Albumin Level 2.9 g/dl (3.5-5.0); Albumin/Globulin Ratio 0.9 (1.1-1.8); Alkaline Phosphatase 148 U/L (38-126); Anion Gap 18.2 mEq/L (5-15); Aspartate Amino Transferase 460 U/L (14-36); Bilirubin,Total 1.4 mg/dl (0.2-1.3); Calcium 8.2 mg/dl (8.4-10.2); Carbon Dioxide 17 mmol/L (22.0-30.0); Chloride 116 mmol/L (98-107); Creatinine Clearance Estimated 48 mL/min (50-200); Estimated Glomerular Filt Rate 25 ml/min (>60); GFR (African American) 30 ML/MIN (>60); Globulin 3.3 g/dL (1.3-3.2); Glucose 200 mg/dl (74-100); Potassium 4.2 mmoL/L (3.5-5.1); Sodium 147 mmol/L (136-145); Total Protein,Serum 6.2 g/dl (6.3-8.2)
[2021-04-14 16:28] LABS: ABG Base Excess -6.4 mmol/L (-2.4-2.3); ABG HCO3 18.6 mmhg (22.0-26.0); ABG Oxygen Saturation 86 % (90-100); ABG PCO2 31.3 mmhg (35.0-45.0); ABG PH 7.39 mmol/L (7.35-7.45); ABG PO2 51.3 mmhg (80-100); ABG TCO2 19.5 mmhg (23-27)
[2021-04-14 16:32] LABS: Allen's Test Acceptable; Source Left Radial
[2021-04-14 16:32] LABS: Blood Urea Nitrogen 81 mg/dl (7-17)
[2021-04-14 16:37] LABS: Troponin I 0.02 ng/ml (0.00-0.034)
[2021-04-14 17:20] LABS: POC Glucose,Bedside 198 (70-110)
[2021-04-14 17:20] LABS: POC Glucose,Bedside 216 (70-110)
[2021-04-14 18:07] LABS: Lymphocytes % 12 % (10-50); Monocytes % 6 % (2-9); Neutrophils % 82 % (42-76); Platelet Estimate Normal; RBC Morphology Normal; Total Cells Counted 100
--- NOTE | 2021-04-14 19:52 | PC.NURSE ---
Pt alert to name and birthday this shift. This RN did make Loly Dupree APRN aware that pt was more lethergic and confused this shift and not eating well. She ordered an EKG, it was NSR, a CXR which showed no change in PNA, labs and an ABG. Loly Dupree APRN also wanted pt placed on bipap again, which when placed on bipap sats were 100 %. Pt did have vapotherm on earlier in shift and at 40 L and 90% was satting around 90%. Pt did take meds per sep, but some were refused as well, as pt stated she was full. Did speak with giselle Jarquin this shift x 2 and give updates on status of pt. Pt was moved to [facility] unit this evening. Report given to Eyal Horvath RN Also, this RN made Dr. Grey office aware of BUN of 81 on pt at 1751. Dr[address] Wolf aware of status as well. Called and spoke with staff at Dr. Perez's ([facility]) aware of pt's status after cxr, labs and ekg complete. PERRLA and violin repairer strong and equal. No facial drooping. Cole remains in place and is draining dark yellow urine in bag. NS continues at 50 ML/HR. VSS.
[2021-04-14 20:07] LABS: POC Glucose,Bedside 211 (70-110)
[2021-04-14 21:21] LABS: POC Glucose,Bedside 187 (70-110)
[2021-04-15] VITALS (18 sets, daily range): BP systolic 130–151; BP diastolic 65–84; PULSE 60–77; RESP 1–33; TEMP 35.7–37.1; O2SAT 88–99
--- NOTE | 2021-04-15 05:26 | PC.NURSE ---
patient has had an uneventful night this shift. She was very anxious about taking off the mask to take her HS medications. With reassurance and respiratory at bedside she willingly took her life-sustaining med. No s/s of acute distress noted this shift, call light within reach, bed at lowest level for safety; will continue to monitor.
[2021-04-15 05:43] LABS: POC Glucose,Bedside 172 (70-110)
[2021-04-15 07:41] LABS: Alanine Aminotransferase 279 U/L (12-78); Albumin Level 3.1 g/dl (3.5-5.0); Albumin/Globulin Ratio 0.8 (1.1-1.8); Alkaline Phosphatase 156 U/L (38-126); Anion Gap 19.1 mEq/L (5-15); Aspartate Amino Transferase 546 U/L (14-36); Bilirubin,Total 1.7 mg/dl (0.2-1.3); Calcium 8.3 mg/dl (8.4-10.2); Carbon Dioxide 17 mmol/L (22.0-30.0); Chloride 117 mmol/L (98-107); Creatinine Clearance Estimated 40 mL/min (50-200); Estimated Glomerular Filt Rate 20 ml/min (>60); GFR (African American) 24 ML/MIN (>60); Globulin 3.7 g/dL (1.3-3.2); Glucose 203 mg/dl (74-100); Potassium 5.1 mmoL/L (3.5-5.1); Sodium 148 mmol/L (136-145); Total Protein,Serum 6.8 g/dl (6.3-8.2)
[2021-04-15 07:54] LABS: Blood Urea Nitrogen 100 mg/dl (7-17)
--- NOTE | 2021-04-15 07:59 | PC.NURSE ---
Dr. Freeman notified of BUN 100.
--- NOTE | 2021-04-15 08:50 | HMH.ACPN2 ---
<Mirta Ramirez - Last Filed: 04/15/21 08:50> Internal Medicine - PN: Subj *Date: 04/15/21 *Time: 08:50 Interval history: Patient became very lethargic yesterday had to be placed back on BiPAP. This morning she is staring straight forward and has difficulty answering questions. When asked if she is comfortable she shakes her head yes. Exam Vital signs and Labs for Last 24 Hours: Temp Pulse Resp BP Pulse Ox 96.3 F L 66 21 149/84 H 98 04/15/21 04:00 04/15/21 05:39 04/15/21 04:00 04/15/21 04:00 04/15/21 04:00 Laboratory Results - last 24 hr 04/14/21 13:05: POC Glucose 216 H 04/14/21 15:41: Specimen Source Left radial, O2 % 40/90, ABG pH 7.39, ABG pCO2 31.3 L, ABG pO2 51.3 L, ABG HCO3 18.6 L, ABG Total CO2 19.5 L, ABG O2 Saturation 86 L*, ABG Base Excess -6.4 L, [place] Test Acceptable 04/14/21 16:01: WBC 4.8 D, RBC 4.22, Hgb 12.5, Hct 39.0, MCV 92.3, MCH 29.6, MCHC 32.1, RDW 14.9, Plt Count 188, MPV 8.0, Neut % (Auto) 83.2 H, Lymph % (Auto) 10.4, [place] % (Auto) 5.5, Eos % (Auto) 0.2, Baso % (Auto) 0.7, Neut # (Auto) 4.0, Lymph # (Auto) 0.5 L, [place] # (Auto) 0.3, Eos # (Auto) 0.0, Baso # (Auto) 0.0, Total Counted 100, Neutrophils % (Manual) 82 H, Lymphocytes % (Manual) 12, Monocytes % (Manual) 6, Platelet Estimate Normal, RBC Morphology Normal 04/14/21 16:01: Sodium 147 H, Potassium 4.2, Chloride 116 H, Carbon Dioxide 17 L, Anion Gap 18.2 H, BUN 81 H D, Creatinine 2.00 H, Estimated Creat Clear 48, Estimated GFR 25 L, Est GFR ( Amer) 30 L, Glucose 200 H, Calcium 8.2 L, Total Bilirubin 1.4 H, AST 460 H*, ALT 227 H, Alkaline Phosphatase 148 H, Troponin I 0.02, Total Protein 6.2 L, Albumin 2.9 L, Globulin 3.3 H, Albumin/Globulin Ratio 0.9 L 04/14/21 16:49: POC Glucose 198 H 04/14/21 19:52: POC Glucose 211 H 04/14/21 21:12: POC Glucose 187 H 04/15/21 05:36: POC Glucose 172 H 04/15/21 06:50: Sodium 148 H, Potassium 5.1 D, Chloride 117 H, Carbon Dioxide 17 L, Anion Gap 19.1 H, BUN 100 H, Creatinine 2.40 H, Estimated Creat Clear 40, Estimated GFR 20 L, Est GFR ( Amer) 24 L, Glucose 203 H, Calcium 8.3 L, Total Bilirubin 1.7 H, AST 546 H*, ALT 279 H, Alkaline Phosphatase 156 H, Total Protein 6.8, Albumin 3.1 L, Globulin 3.7 H, Albumin/Globulin Ratio 0.8 L I & O for Last 24 hours: Intake & Output 04/12/21 04/13/21 04/14/21 04/15/21 11:59 11:59 11:59 11:59 Intake Total 240 / 240 1025 / 1025 1660 / 1660 1380 / 1380 Output Total 1125 / 1125 1685 / 1685 3300 / 3300 1999 / 1999 Balance -885 / -885 -660 / -660 -1640 / -1640 -620 / -620 Weight 252 lb 5 oz 252 lb 2 oz 249 lb 12.8 oz Microbiology Reports for the Last 24 Hours: Microbiology 04/12/21 11:15 Nose - Nasal MRSA Culture - Final Negative 04/08/21 06:40 Sputum - Expectorated Sputum Gram Stain - Final 04/08/21 06:40 Sputum - Expectorated Sputum Sputum Culture - Final Normal Respiratory Bailey - Constitutional no acute distress - *Routine Respiratory Exam Present: decreased breath sounds (BIPAP in place) - *Routine Cardiovascular Exam Present: RRR - *Routine Abdominal Exam Present: soft, normoactive bowel sounds. Absent: tenderness - *Routine Extremities Exam Present: edema (bilateral LE's). Absent: cyanosis, clubbing - *Routine Skin Exam Present: warm. Absent: rash - *Routine Neurological Exam Present: alert (difficulty answering questions) Assessment and Plan (1) Acute respiratory failure Status: Acute Category: Medical Code(s): J96.00 - Acute respiratory failure, unspecified whether with hypoxia or hypercapnia (2) Pneumonia due to COVID-19 virus Status: Acute Category: Medical Code(s): U07.1 - COVID-19; J12.82 - Pneumonia due to coronavirus disease 2019 (3) MARIANO (acute kidney injury) Status: Acute Category: Medical Code(s): N17.9 - Acute kidney failure, unspecified (4) Elevated troponin Status: Acute Category: Medical Code(s): R77.8 - Other s
--- NOTE | 2021-04-15 09:56 | HMH.PULMPN ---
Internal Medicine - PN: Subj *Date: 04/15/21 *Time: 14:29 Interval history: No acute respiratory events overnight. Patient remains on BiPAP since yesterday. Exam - Constitutional Constitutional:: Absent: no acute distress, comfortable - HENMT Exam HENMT: Present: normocephalic, atraumatic - Neck Exam Neck:: Present: normal visual inspection - Respiratory Exam Respiratory:: Present: respiratory distress, crackles - Cardiovascular Exam Cardiac:: Present: S1, S2 - GI Exam GI:: Present: soft, obese - Skin Exam Skin: Present: warm, no rash - Neurological Exam Neurological: Present: awake. Absent: alert, normal cognition - Extremities Exam Extremities: Present: no cyanosis, no clubbing, edema - Psychiatric Exam Psychiatric: Present: agitated, anxious Assessment and Plan (1) Acute respiratory failure Status: Acute Category: Medical Code(s): J96.00 - Acute respiratory failure, unspecified whether with hypoxia or hypercapnia (2) Pneumonia due to COVID-19 virus Status: Acute Category: Medical Code(s): U07.1 - COVID-19; J12.82 - Pneumonia due to coronavirus disease 2019 (3) MARIANO (acute kidney injury) Status: Acute Category: Medical Code(s): N17.9 - Acute kidney failure, unspecified (4) Elevated troponin Status: Acute Category: Medical Code(s): R77.8 - Other specified abnormalities of plasma proteins (5) Pneumonia due to COVID-19 virus Status: Acute Category: Medical Code(s): U07.1 - COVID-19; J12.82 - Pneumonia due to coronavirus disease 2019 (6) Thrombocytopenia associated with COVID-19 Status: Acute Category: Medical Code(s): U07.1 - COVID-19; D69.59 - Other secondary thrombocytopenia (7) CAD (coronary artery disease) Status: Chronic Qualifiers: Coronary Disease-Associated Artery/Lesion type: [place] artery [place] vs. transplanted heart: [place] heart Associated angina: with other forms of angina Qualified Code(s): I25.118 - Atherosclerotic heart disease of [place] coronary artery with other forms of angina pectoris Category: Medical Code(s): I25.10 - Atherosclerotic heart disease of [place] coronary artery without angina pectoris (8) HLD (hyperlipidemia) Status: Chronic Qualifiers: Hyperlipidemia type: mixed hyperlipidemia Qualified Code(s): E78.2 - Mixed hyperlipidemia Category: Medical Code(s): E78.5 - Hyperlipidemia, unspecified (9) HTN (hypertension) Status: Chronic Qualifiers: Hypertension type: essential hypertension Category: Medical Code(s): I10 - Essential (primary) hypertension (10) Morbid obesity with body mass index (BMI) of 40.0 to 49.9 Status: Chronic Category: Medical Code(s): E66.01 - Morbid (severe) obesity due to excess calories (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 difficile colitis Status: Acute Category: Medical Code(s): A04.72 - Enterocolitis due to Clostridium difficile, not specified as recurrent - Assessment and plan all Dx Assessment and Plan for all problems:: #Acute hypoxic respiratory failure: #COVID-19 pneumonia: 66-year-old yet to be vaccinated never smoker no prior respiratory complaints presented with worsening fatigue weakness, diarrhea and respiratory distress for the last week and found to be COVID-19 positive. Her other comorbidities including CKD, diabetes mellitus, dyslipidemia and CAD Chest x-ray admission bilateral lower lobe pulmonary
[2021-04-15 11:19] LABS: POC Glucose,Bedside 197 (70-110)
[2021-04-15 17:52] LABS: POC Glucose,Bedside 163 (70-110)
--- NOTE | 2021-04-15 19:39 | PC.NURSE ---
Pt came to floor at approx 1845. Pt placed on bipap and sats 94%. CB in reach. Report given to REFUGIO Smith
[2021-04-15 22:04] LABS: POC Glucose,Bedside 163 (70-110)
[2021-04-16] VITALS (16 sets, daily range): BP systolic 132–189; BP diastolic 69–99; PULSE 67–98; RESP 5–30; TEMP 35.8–36.9; O2SAT 82–96; BMI 40.1
[2021-04-16 07:08] LABS: POC Glucose,Bedside 157 (70-110)
--- NOTE | 2021-04-16 09:01 | HMH.PULMPN ---
Internal Medicine - PN: Subj *Date: 04/16/21 *Time: 13:33 Interval history: No acute respiratory vents overnight. Patient remains on BiPAP. Exam - Constitutional Constitutional:: Absent: no acute distress, comfortable - HENMT Exam HENMT: Present: normocephalic, atraumatic - Eye Exam Eyes:: Present: normal appearance both eyes and related structures - Neck Exam Neck:: Present: normal visual inspection - Respiratory Exam Respiratory:: Present: respiratory distress, crackles. Absent: able to speak in complete sentences - Cardiovascular Exam Cardiac:: Present: S1, S2 - GI Exam GI:: Present: soft - Skin Exam Skin: Present: warm, no rash - Neurological Exam Neurological: Absent: alert, awake, normal cognition - Extremities Exam Extremities: Present: no cyanosis, no clubbing. Absent: no edema Assessment and Plan (1) Acute respiratory failure Status: Acute Category: Medical Code(s): J96.00 - Acute respiratory failure, unspecified whether with hypoxia or hypercapnia (2) Pneumonia due to COVID-19 virus Status: Acute Category: Medical Code(s): U07.1 - COVID-19; J12.82 - Pneumonia due to coronavirus disease 2019 (3) MARIANO (acute kidney injury) Status: Acute Category: Medical Code(s): N17.9 - Acute kidney failure, unspecified (4) Elevated troponin Status: Acute Category: Medical Code(s): R77.8 - Other specified abnormalities of plasma proteins (5) Pneumonia due to COVID-19 virus Status: Acute Category: Medical Code(s): U07.1 - COVID-19; J12.82 - Pneumonia due to coronavirus disease 2018 (6) Thrombocytopenia associated with COVID-19 Status: Acute Category: Medical Code(s): U07.1 - COVID-19; D69.59 - Other secondary thrombocytopenia (7) CAD (coronary artery disease) Status: Chronic Qualifiers: Coronary Disease-Associated Artery/Lesion type: [place] artery [place] vs. transplanted heart: [place] heart Associated angina: with other forms of angina Qualified Code(s): I25.118 - Atherosclerotic heart disease of [place] coronary artery with other forms of angina pectoris Category: Medical Code(s): I25.10 - Atherosclerotic heart disease of [place] coronary artery without angina pectoris (8) HLD (hyperlipidemia) Status: Chronic Qualifiers: Hyperlipidemia type: mixed hyperlipidemia Qualified Code(s): E78.2 - Mixed hyperlipidemia Category: Medical Code(s): E78.5 - Hyperlipidemia, unspecified (9) HTN (hypertension) Status: Chronic Qualifiers: Hypertension type: essential hypertension Category: Medical Code(s): I10 - Essential (primary) hypertension (10) Morbid obesity with body mass index (BMI) of 40.0 to 49.9 Status: Chronic Category: Medical Code(s): E66.01 - Morbid (severe) obesity due to excess calories (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 difficile colitis Status: Acute Category: Medical Code(s): A04.72 - Enterocolitis due to Clostridium difficile, not specified as recurrent - Assessment and plan all Dx Assessment and Plan for all problems:: #Acute hypoxic respiratory failure: #COVID-19 pneumonia: 66-year-old yet to be vaccinated never smoker no prior respiratory complaints presented with worsening fatigue weakness, diarrhea and respiratory distress for the last week and found to be COVID-19 positive. Her other comorbidities including CKD, diabetes mellitus, dyslipidemia and CAD Chest x-
--- NOTE | 2021-04-16 09:11 | HMH.ACPN2 ---
Internal Medicine - PN: Subj *Date: 04/16/21 *Time: 09:11 Interval history: Patient is currently on BiPAP and difficult to understand. She has food but has not eaten. She states she is short of breath. Exam Vital signs and Labs for Last 24 Hours: Temp Pulse Resp BP Pulse Ox 97.6 F 81 20 189/97 H 82 L 04/16/21 08:00 04/16/21 08:00 04/16/21 08:00 04/16/21 08:00 04/16/21 08:00 Laboratory Results - last 24 hr 04/15/21 11:12: POC Glucose 197 H 04/15/21 17:43: POC Glucose 163 H 04/15/21 21:50: POC Glucose 163 H 04/16/21 06:02: POC Glucose 157 H I & O for Last 24 hours: Intake & Output 04/13/21 04/14/21 04/15/21 04/16/21 11:59 11:59 11:59 11:59 Intake Total 1025 / 1025 1660 / 1660 1380 / 1380 1400 / 1400 Output Total 1685 / 1685 3300 / 3300 1999 / 1999 1375 / 1375 Balance -660 / -660 -1640 / -1640 -620 / -620 25 / 25 Weight 252 lb 2 oz 249 lb 12.8 oz 249 lb 12.787 oz Microbiology Reports for the Last 24 Hours: Microbiology 04/12/21 11:15 Nose - Nasal MRSA Culture - Final Negative - Constitutional no acute distress - *Routine Respiratory Exam Present: decreased breath sounds (on Bipap) - *Routine Cardiovascular Exam Present: RRR - *Routine Abdominal Exam Present: soft, normoactive bowel sounds. Absent: tenderness - *Routine Extremities Exam Present: edema. Absent: cyanosis, clubbing - *Routine Skin Exam Present: warm. Absent: rash - *Routine Neurological Exam Present: alert, oriented X3 Assessment and Plan (1) Acute respiratory failure Status: Acute Category: Medical Code(s): J96.00 - Acute respiratory failure, unspecified whether with hypoxia or hypercapnia (2) Pneumonia due to COVID-19 virus Status: Acute Category: Medical Code(s): U07.1 - COVID-19; J12.82 - Pneumonia due to coronavirus disease 2019 (3) MARIANO (acute kidney injury) Status: Acute Category: Medical Code(s): N17.9 - Acute kidney failure, unspecified (4) Elevated troponin Status: Acute Category: Medical Code(s): R77.8 - Other specified abnormalities of plasma proteins (5) Pneumonia due to COVID-19 virus Status: Acute Category: Medical Code(s): U07.1 - COVID-19; J12.82 - Pneumonia due to coronavirus disease 2019 (6) Thrombocytopenia associated with COVID-19 Status: Acute Category: Medical Code(s): U07.1 - COVID-19; D69.59 - Other secondary thrombocytopenia (7) CAD (coronary artery disease) Status: Chronic Qualifiers: Coronary Disease-Associated Artery/Lesion type: [place] artery [place] vs. transplanted heart: [place] heart Associated angina: with other forms of angina Qualified Code(s): I25.118 - Atherosclerotic heart disease of [place] coronary artery with other forms of angina pectoris Category: Medical Code(s): I25.10 - Atherosclerotic heart disease of [place] coronary artery without angina pectoris (8) HLD (hyperlipidemia) Status: Chronic Qualifiers: Hyperlipidemia type: mixed hyperlipidemia Qualified Code(s): E78.2 - Mixed hyperlipidemia Category: Medical Code(s): E78.5 - Hyperlipidemia, unspecified (9) HTN (hypertension) Status: Chronic Qualifiers: Hypertension type: essential hypertension Category: Medical Code(s): I10 - Essential (primary) hypertension (10) Morbid obesity with body mass index (BMI) of 40.0 to 49.9 Status: Chronic Category: Medical Code(s): E66.01 - Morbid (severe) obesity due to excess calories (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
[2021-04-16 09:38] LABS: ABG Base Excess -8.9 mmol/L (-2.4-2.3); ABG HCO3 17.1 mmhg (22.0-26.0); ABG Oxygen Saturation 90 % (90-100); ABG PCO2 33.8 mmhg (35.0-45.0); ABG PH 7.32 mmol/L (7.35-7.45); ABG PO2 59.7 mmhg (80-100); ABG TCO2 18.2 mmhg (23-27)
[2021-04-16 09:39] LABS: Oxygen 50 %
[2021-04-16 09:40] LABS: Allen's Test Patient Unable; Pressure Support 6; Source Left Radial; Vent Rate 18
--- NOTE | 2021-04-16 13:15 | PC.NURSE ---
PT IS RESTING IN BED WITH BIPAP ON. WHEN BIPAP IS REMOVED TO DO ORAL CARE PT QUICKLY DESATS TO THE 70'S. PT WAS UNABLE TO TAKE PO MEDICATIONS THIS MORNING. VERY LETHARGIC. PT HAS NOT BEEN ABLE TO TOLERATE EATING AND DRINKING DUE TO NOT BEING ABLE TO REMOVE THE BIPAP MASK LONGER THAN A FEW SECONDS. PT BECAME VERY AGITATED THIS MORNING WHILE RT WAS TRYING TO GET ABG. LUNG SOUNDS DIMINISHED. ABDOMEN SOFT WITH HYPOACTIVE BOWEL SOUNDS. WAS NOTIFIED OF ELEVATED BP THIS MORNING. WILL CONTINUE TO MONITOR.
[2021-04-16 17:33] LABS: POC Glucose,Bedside 181 (70-110)
[2021-04-16 17:33] LABS: POC Glucose,Bedside 172 (70-110)
[2021-04-16 21:54] LABS: POC Glucose,Bedside 170 (70-110)
[2021-04-17] VITALS (18 sets, daily range): BP systolic 157–188; BP diastolic 64–98; PULSE 67–97; RESP 4–32; TEMP 35.1–36.4; O2SAT 89–99; BMI 40.1
[2021-04-17 06:53] LABS: POC Glucose,Bedside 180 (70-110)
[2021-04-17 11:42] LABS: POC Glucose,Bedside 172 (70-110)
--- NOTE | 2021-04-17 13:40 | XR_ITS ---
PROCEDURE INFORMATION: Exam: XR Chest Exam date and time: 04/17/2021 1:40 PM Age: 66 years old Clinical indication: Shortness of breath; Additional info: Pneumonia, covid TECHNIQUE: Imaging protocol: XR of the chest. Views: 1 view. COMPARISON: CR XR CHEST PORTABLE 04/14/2021 4:06 PM FINDINGS: Tubes, catheters and devices: There are sternal wires consistent with previous sternotomy incision. Lungs: Diffuse patchy airspace opacities noted throughout the lungs bilaterally. Pleural spaces: Small bilateral pleural effusions. There is no evidence of pneumothorax. Heart/Mediastinum: The heart demonstrates mild diffuse enlargement. Bones/joints: The thoracic spine demonstrates mild degenerative changes at multiple levels. IMPRESSION: 1. The heart demonstrates mild diffuse enlargement. 2. Diffuse patchy airspace opacities noted throughout the lungs bilaterally. 3. Small bilateral pleural effusions.
--- NOTE | 2021-04-17 13:45 | HMH.ACPN2 ---
Internal Medicine - PN: Subj *Date: 04/17/21 *Time: 13:45 Interval history: Over time it seems the patient has become less responsive. There is no specific focal deficit but she does not interact or speak. She is not taking her p.o. medications. She is maintained on BiPAP. Her urine output seems adequate. She has edema. Exam Vital signs and Labs for Last 24 Hours: Temp Pulse Resp BP Pulse Ox 97.6 F 82 32 H 175/84 H 95 04/17/21 12:00 04/17/21 12:00 04/17/21 12:00 04/17/21 12:00 04/17/21 12:00 Laboratory Results - last 24 hr 04/16/21 10:26: POC Glucose 172 H 04/16/21 16:45: POC Glucose 181 H 04/16/21 21:36: POC Glucose 170 H 04/17/21 06:40: POC Glucose 180 H 04/17/21 11:16: POC Glucose 172 H I & O for Last 24 hours: Intake & Output 04/15/21 04/16/21 04/17/21 04/18/21 11:59 11:59 11:59 11:59 Intake Total 1380 / 1380 1400 / 1400 Output Total 1999 / 1999 1575 / 1575 925 / 925 Balance -620 / -620 -175 / -175 -925 / -925 Weight 249 lb 12.787 oz 249 lb 12.787 oz - Constitutional no acute distress (But seems not responsive.) - *Routine HEENT Exam Head: Present: normocephalic Eye: Present: PERRL ENT: Present: mucous membranes moist - Routine Chest/Breast/Axilla Exam Chest wall: Absent: tenderness - *Routine Respiratory Exam Present: decreased breath sounds - *Routine Cardiovascular Exam Present: RRR - *Routine Abdominal Exam Present: soft, obese - *Routine Extremities Exam Present: edema (2+) - *Routine Skin Exam Present: intact - *Routine Neurological Exam Absent: alert, oriented X3, normal speech Assessment and Plan (1) Acute respiratory failure Status: Acute Category: Medical Code(s): J96.00 - Acute respiratory failure, unspecified whether with hypoxia or hypercapnia (2) Pneumonia due to COVID-19 virus Status: Acute Category: Medical Code(s): U07.1 - COVID-19; J12.82 - Pneumonia due to coronavirus disease 2019 (3) MARIANO (acute kidney injury) Status: Acute Category: Medical Code(s): N17.9 - Acute kidney failure, unspecified (4) Elevated troponin Status: Acute Category: Medical Code(s): R77.8 - Other specified abnormalities of plasma proteins (5) Pneumonia due to COVID-19 virus Status: Acute Category: Medical Code(s): U07.1 - COVID-19; J12.82 - Pneumonia due to coronavirus disease 2019 (6) Thrombocytopenia associated with COVID-19 Status: Acute Category: Medical Code(s): U07.1 - COVID-19; D69.59 - Other secondary thrombocytopenia (7) CAD (coronary artery disease) Status: Chronic Qualifiers: Coronary Disease-Associated Artery/Lesion type: [place] artery [place] vs. transplanted heart: [place] heart Associated angina: with other forms of angina Qualified Code(s): I25.118 - Atherosclerotic heart disease of [place] coronary artery with other forms of angina pectoris Category: Medical Code(s): I25.10 - Atherosclerotic heart disease of [place] coronary artery without angina pectoris (8) HLD (hyperlipidemia) Status: Chronic Qualifiers: Hyperlipidemia type: mixed hyperlipidemia Qualified Code(s): E78.2 - Mixed hyperlipidemia Category: Medical Code(s): E78.5 - Hyperlipidemia, unspecified (9) HTN (hypertension) Status: Chronic Qualifiers: Hypertension type: essential hypertension Category: Medical Code(s): I10 - Essential (primary) hypertension (10) Morbid obesity with body mass index (BMI) of 40.0 to 49.9 Status: Chronic Category: Medical Code(s): E66.01 - Morbid (severe) obesity due to excess calories (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
[2021-04-17 14:48] LABS: ABG Base Excess -10.9 mmol/L (-2.4-2.3); ABG HCO3 15.5 mmhg (22.0-26.0); ABG Oxygen Saturation 96 % (90-100); ABG PCO2 32.3 mmhg (35.0-45.0); ABG PO2 84.3 mmhg (80-100); ABG TCO2 16.5 mmhg (23-27)
[2021-04-17 14:49] LABS: Basophils # 0.1 K/mm3 (0-0.2); Basophils % 0.5 % (0.1-2.0); Eosinophils % 0.2 % (0.1-12.0); Hematocrit 40.4 % (37.0-47.0); Hemoglobin 12.7 g/dL (12.2-16.2); Lymphocytes # 0.9 K/mm3 (0.7-4.5); Lymphocytes % 6.4 % (10-50); Mean Corpuscular HGB Conc 31.5 g/dL (31.8-35.4); Mean Corpuscular Hemoglobin 29.6 pg (27.0-31.2); Mean Corpuscular Volume 93.9 fl (81-99); Mean Platelet Volume 9.2 fl (7.4-10.4); Monocytes # 0.8 K/mm3 (0.1-1.0); Monocytes % 5.9 % (1.7-9.3); Neutrophils # 11.8 K/mm3 (1.8-7.8); Platelet Count 161 K/mm3 (142-424); Red Cell Distribution Width 15.3 % (11.5-17.5); White Blood Count 13.6 K/mm3 (4.8-10.8)
[2021-04-17 14:50] LABS: Oxygen 60 %
[2021-04-17 14:51] LABS: Allen's Test Non Applicable; Pressure Support 6; Source Left Brachial; Vent Rate 18
[2021-04-17 14:54] LABS: MANUAL DIFFERENTIAL MANUAL DIFFERENTIAL (MANUAL DIFF)
[2021-04-17 14:56] LABS: Potassium 4.8 mmoL/L (3.5-5.1)
[2021-04-17 14:59] LABS: Anion Gap 18.8 mEq/L (5-15); Calcium 9.1 mg/dl (8.4-10.2); Carbon Dioxide 16 mmol/L (22.0-30.0); Creatinine Clearance Estimated 39 mL/min (50-200); Estimated Glomerular Filt Rate 19 ml/min (>60); GFR (African American) 23 ML/MIN (>60); Glucose 202 mg/dl (74-100)
[2021-04-17 15:03] LABS: Blood Urea Nitrogen 113 mg/dl (7-17); Chloride 129 mmol/L (98-107); Sodium 159 mmol/L (136-145)
[2021-04-17 15:36] LABS: Eosinophils % 1 % (0-3); Lymphocytes % 10 % (10-50); Monocytes % 6 % (2-9); Neutrophils % 83 % (42-76); Platelet Estimate Normal; RBC Morphology Normal; Total Cells Counted 100
[2021-04-17 18:02] LABS: POC Glucose,Bedside 224 (70-110)
--- NOTE | 2021-04-17 20:08 | PC.NURSE ---
PT IS RESTING IN BED. PT IS LESS RESPONSIVE/LETHARGIC TODAY THAN SHE WAS YESTERDAY. WANTED PT TO HAVE LAB WORK/ABG/ HEAD CT. CRITICAL LABS/ABG WAS REPORTED TO . HOWEVER RT ATTEMPTED TO PUT PT ON A NON REBREATHER TO TRANSPORT TO CT AND PT WAS UNABLE TO TOLERATE (O2 SATURATION DROPPED TO THE 80'S WITHIN SECONDS) DR. BEARDEN NOTIFIED AND HE STATED TO CANCEL THE CT FOR NOW. PT'S RECTAL TEMP AT 1630 WAS 96.4. WARM BLANKETS WERE APPLIED. TEMP RECHECK 1 HOUR LATER 96.1. MORE WARM BLANKETS APPLIED. TEMP RECHECK AT SHIFT CHANGE 1900 95.2. JANET HUGGER APPLIED. PT HAS BEEN TURNED AND REPOSITIONED T/O THE SHIFT. ORAL CARE PROVIDED. PT DESATS TO THE 70'S QUICKLY DURING ORAL CARE AND SHE BECOMES VERY ANXIOUS. PT IS UNABLE TO TAKE PO MEDICATIONS. LUNG SOUNDS DIMINISHED. ABDOMEN SOFT/NON TENDER WITH HYPOACTIVE BOWEL SOUNDS. PT HAD 1 LARGE LOOSE BOWEL MOVEMENT THIS SHIFT. REPORT HAND OFF TO LINA ARMENDARIZ RN.
[2021-04-17 22:18] LABS: POC Glucose,Bedside 256 (70-110)
[2021-04-18] VITALS (17 sets, daily range): BP systolic 137–179; BP diastolic 57–89; PULSE 68–96; RESP 20–33; TEMP 35.9–36.6; O2SAT 86–93; BMI 40.1
[2021-04-18 01:39] LABS: POC Glucose,Bedside 266 (70-110)
--- NOTE | 2021-04-18 02:57 | PC.NURSE ---
Pt remains lethargic t/o shift. Pt remains on bipap with O2 stats 88%-90%. Pt could not take any PO meds this shift due to not being able to remove the bipap mask. Abdomen soft, with bruising noted to left side. Cole draining clear, yellow urine. Will continue to monitor.
[2021-04-18 05:41] LABS: POC Glucose,Bedside 242 (70-110)
[2021-04-18 06:35] LABS: Anion Gap 16.6 mEq/L (5-15); Calcium 8.6 mg/dl (8.4-10.2); Carbon Dioxide 16 mmol/L (22.0-30.0); Creatinine Clearance Estimated 39 mL/min (50-200); Estimated Glomerular Filt Rate 19 ml/min (>60); GFR (African American) 23 ML/MIN (>60); Glucose 277 mg/dl (74-100); Potassium 4.6 mmoL/L (3.5-5.1)
[2021-04-18 06:48] LABS: Blood Urea Nitrogen 115 mg/dl (7-17); Chloride 130 mmol/L (98-107); Sodium 158 mmol/L (136-145)
--- NOTE | 2021-04-18 09:25 | HMH.ACPN2 ---
Internal Medicine - PN: Subj *Date: 04/18/21 *Time: 09:25 Interval history: She remains unresponsive. Respiratory status stable on current BiPAP settings. Unable to obtain CT scan as ordered yesterday due to unstable respiratory status. She could not tolerate being off the BiPAP for the procedure. Exam Vital signs and Labs for Last 24 Hours: Temp Pulse Resp BP Pulse Ox 97.1 F L 95 H 32 H 148/73 H 86 L 04/18/21 06:00 04/18/21 06:00 04/18/21 06:00 04/18/21 06:00 04/18/21 06:00 Laboratory Results - last 24 hr 04/17/21 11:16: POC Glucose 172 H 04/17/21 13:40: Specimen Source Left brachial, O2 % 60, ABG pH 7.30 L, ABG pCO2 32.3 L, ABG pO2 84.3, ABG HCO3 15.5 L, ABG Total CO2 16.5 L, ABG O2 Saturation 96, ABG Base Excess -10.9 L, Laron Test Non applicable, Vent Rate 18, Tidal Volume bipap 15/0504/17/21 14:14: WBC 13.6 H D, RBC 4.30, Hgb 12.7, Hct 40.4, MCV 93.9, MCH 29.6, MCHC 31.5 L, RDW 15.3, Plt Count 161, MPV 9.2, Neut % (Auto) 87.0 H, Lymph % (Auto) 6.4 L, [place] % (Auto) 5.9, Eos % (Auto) 0.2, Baso % (Auto) 0.5, Neut # (Auto) 11.8 H, Lymph # (Auto) 0.9, [place] # (Auto) 0.8, Eos # (Auto) 0.0, Baso # (Auto) 0.1, Total Counted 100, Neutrophils % (Manual) 83 H, Lymphocytes % (Manual) 10, Monocytes % (Manual) 6, Eosinophils % (Manual) 1, Platelet Estimate Normal, RBC Morphology Normal 04/17/21 14:14: Sodium 159 H*, Potassium 4.8, Chloride 129 H, Carbon Dioxide 16 L, Anion Gap 18.8 H, BUN 113 H*, Creatinine 2.50 H, Estimated Creat Clear 39, Estimated GFR 19 L*, Est GFR ( Amer) 23 L, Glucose 202 H, Calcium 9.1 04/17/21 17:04: POC Glucose 224 H 04/17/21 21:32: POC Glucose 256 H 04/18/21 01:27: POC Glucose 266 H 04/18/21 05:26: POC Glucose 242 H 04/18/21 05:50: Sodium 158 H*, Potassium 4.6, Chloride 130 H, Carbon Dioxide 16 L, Anion Gap 16.6 H, BUN 115 H*, Creatinine 2.50 H, Estimated Creat Clear 39, Estimated GFR 19 L*, Est GFR ( Amer) 23 L, Glucose 277 H D, Calcium 8.6 I & O for Last 24 hours: Intake & Output 04/15/21 04/16/21 04/17/21 04/18/21 11:59 11:59 11:59 11:59 Intake Total 1380 / 1380 1400 / 1400 Output Total 1999 1575 / 1575 925 / 925 1999 Balance -620 / -620 -175 / -175 -925 / -925 -1999 Weight 249 lb 12.787 oz 249 lb 12.787 oz 250 lb Narrative: She is unresponsive. Pupils are equal and reactive. Corneal reflex intact. Lungs with bilateral rales, R>L. Abdomen is soft and nondistended. Faint bowel sounds noted. There is bruising in the left lower quadrant. Extremities show no edema. Cole draining clear edwige urine in adequate amounts. Assessment and Plan (1) Acute respiratory failure Status: Acute Category: Medical Code(s): J96.00 - Acute respiratory failure, unspecified whether with hypoxia or hypercapnia (2) Pneumonia due to COVID-19 virus Status: Acute Category: Medical Code(s): U07.1 - COVID-19; J12.82 - Pneumonia due to coronavirus disease 2018 (3) MARIANO (acute kidney injury) Status: Acute Category: Medical Code(s): N17.9 - Acute kidney failure, unspecified (4) Elevated troponin Status: Acute Category: Medical Code(s): R77.8 - Other specified abnormalities of plasma proteins (5) Pneumonia due to COVID-19 virus Status: Acute Category: Medical Code(s): U07.1 - COVID-19; J12.82 - Pneumonia due to coronavirus disease 2019 (6) Thrombocytopenia associated with COVID-19 Status: Acute Category: Medical Code(s): U07.1 - COVID-19; D69.59 - Other secondary thrombocytopenia (7) CAD (coronary artery disease) Status: Chronic Qualifiers: Coronary Disease-Associated Artery/Lesion type: [place] artery [place] vs. transplanted heart: [place] heart Associated angina: with other forms of angina Qualified Code(s): I25.118 - Atherosclerotic heart disease of [place] coronary artery with other forms of angina pectoris Category: Medical Code(s): I25.10 - Atherosclerotic heart disease of [place] coronary artery without angina pec
[2021-04-18 12:45] LABS: POC Glucose,Bedside 264 (70-110)
[2021-04-18 16:52] LABS: POC Glucose,Bedside 304 (70-110)
--- NOTE | 2021-04-18 18:52 | PC.NURSE ---
PT IS RESTING IN BED. PT IS MORE OBTUNDED TODAY THAN YESTERDAY. WILL RESPOND VERY MINIMALLY TO PAINFUL STIMULI. ORAL CARE PROVIDED HOWEVER WHEN BIPAP IS REMOVED PT WILL DESAT QUICKLY. TURNED AND REPOSITIONED IN BED. LUNG SOUNDS DIMINISHED WITH BILATERAL CRACKLES. ABDOMEN SOFT WITH BRUISING NOTED TO LLQ. FAMILY HAS BEEN UPDATED ON PT'S CONDITION AND AT THIS POINT THEY DO WANT PT TO REMAIN A FULL CODE AND THEY WILL CONTINUE TO CALL FOR UPDATES. REPORT HAND OFF TO LINA ARMENDARIZ RN.
[2021-04-18 22:29] LABS: POC Glucose,Bedside 223 (70-110)
[2021-04-19] VITALS (16 sets, daily range): BP systolic 118–134; BP diastolic 50–64; PULSE 85–101; RESP 13–38; TEMP 36.4–37.4; O2SAT 84–93; BMI 40.4
--- NOTE | 2021-04-19 05:05 | PC.NURSE ---
No acute changes t/o shift. Pt remains on bipap with O2 stats 88-90%. Cole is draining clear, yellow urine. Pt remains very lethargic, will not respond to painful stimuli. No PO meds given this shift. Q2h turn completed and oral care given t/o shift. When bipap is removed pt will destat to low 70's during oral care. VSS, will continue to monitor.
[2021-04-19 05:59] LABS: POC Glucose,Bedside 186 (70-110)
[2021-04-19 06:42] LABS: Basophils % 0.2 % (0.1-2.0); Eosinophils # 0.1 K/mm3 (0.0-0.4); Eosinophils % 0.5 % (0.1-12.0); Hematocrit 35.5 % (37.0-47.0); Hemoglobin 10.5 g/dL (12.2-16.2); Lymphocytes # 0.8 K/mm3 (0.7-4.5); Lymphocytes % 6.1 % (10-50); Mean Corpuscular HGB Conc 29.5 g/dL (31.8-35.4); Mean Corpuscular Hemoglobin 29.1 pg (27.0-31.2); Mean Corpuscular Volume 98.9 fl (81-99); Mean Platelet Volume 10.9 fl (7.4-10.4); Monocytes # 0.4 K/mm3 (0.1-1.0); Monocytes % 3.3 % (1.7-9.3); Neutrophils # 11.2 K/mm3 (1.8-7.8); Platelet Count 102 K/mm3 (142-424); Red Blood Count 3.59 M/mm3 (4.20-5.40); Red Cell Distribution Width 15.4 % (11.5-17.5); White Blood Count 12.5 K/mm3 (4.8-10.8)
[2021-04-19 06:46] LABS: MANUAL DIFFERENTIAL MANUAL DIFFERENTIAL (MANUAL DIFF)
[2021-04-19 06:49] LABS: Alanine Aminotransferase 113 U/L (12-78); Albumin Level 2.4 g/dl (3.5-5.0); Albumin/Globulin Ratio 0.8 (1.1-1.8); Alkaline Phosphatase 162 U/L (38-126); Anion Gap 15.3 mEq/L (5-15); Aspartate Amino Transferase 62 U/L (14-36); Bilirubin,Total 1.2 mg/dl (0.2-1.3); Calcium 8.4 mg/dl (8.4-10.2); Carbon Dioxide 17 mmol/L (22.0-30.0); Creatinine Clearance Estimated 32 mL/min (50-200); Estimated Glomerular Filt Rate 16 ml/min (>60); GFR (African American) 19 ML/MIN (>60); Globulin 3.1 g/dL (1.3-3.2); Glucose 197 mg/dl (74-100); Potassium 5.3 mmoL/L (3.5-5.1); Total Protein,Serum 5.5 g/dl (6.3-8.2)
[2021-04-19 06:55] LABS: Eosinophils % 3 % (0-3); Hypochromasia 2+; Lymphocytes % 6 % (10-50); Monocytes % 1 % (2-9); Neutrophils % 86 % (42-76); Platelet Estimate Slight Decrease; Total Cells Counted 100
[2021-04-19 07:59] LABS: Blood Urea Nitrogen 127 mg/dl (7-17); Chloride 132 mmol/L (98-107); Sodium 159 mmol/L (136-145)
--- NOTE | 2021-04-19 09:17 | HMH.ACPN2 ---
<Julia Lopez - Last Filed: 04/19/21 09:17> Internal Medicine - PN: Subj *Date: 04/19/21 *Time: 09:17 Interval history: Patient remains unresponsive. She remains on BiPAP. Respiratory rate has increased with shallow effort. CBC this morning shows a white blood cell count of 12,500 with hemoglobin of 10.5 hematocrit of 35.5. Blood chemistries show elevated sodium at 159 with a potassium of 5.3 BUN is 127 and creatinine is increased to 3. Exam Vital signs and Labs for Last 24 Hours: Temp Pulse Resp BP Pulse Ox 97.8 F 93 H 38 H 130/62 84 L 04/19/21 08:00 04/19/21 08:00 04/19/21 08:00 04/19/21 08:00 04/19/21 08:00 Laboratory Results - last 24 hr 04/18/21 12:15: POC Glucose 264 H 04/18/21 16:43: POC Glucose 304 H* 04/18/21 21:07: POC Glucose 223 H 04/19/21 05:52: POC Glucose 186 H 04/19/21 05:56: WBC 12.5 H, RBC 3.59 L, Hgb 10.5 L, Hct 35.5 L, MCV 98.9, MCH 29.1, MCHC 29.5 L, RDW 15.4, Plt Count 102 L D, MPV 10.9 H, Neut % (Auto) 90.0 H, Lymph % (Auto) 6.1 L, [place] % (Auto) 3.3, Eos % (Auto) 0.5, Baso % (Auto) 0.2, Neut # (Auto) 11.2 H, Lymph # (Auto) 0.8, [place] # (Auto) 0.4, Eos # (Auto) 0.1, Baso # (Auto) 0.0, Total Counted 100, Neutrophils % (Manual) 86 H, Band Neutrophils % 4.0, Lymphocytes % (Manual) 6 L, Monocytes % (Manual) 1 L, Eosinophils % (Manual) 3, Platelet Estimate Slight decrease, Hypochromasia 2+ 04/19/21 05:56: Sodium 159 H*, Potassium 5.3 H, Chloride 132 H, Carbon Dioxide 17 L, Anion Gap 15.3 H, BUN 127 H*, Creatinine 3.00 H, Estimated Creat Clear 32, Estimated GFR 16 L*, Est GFR ( Amer) 19 L*, Glucose 197 H, Calcium 8.4, Total Bilirubin 1.2, AST 62 H, ALT 113 H, Alkaline Phosphatase 162 H, Total Protein 5.5 L, Albumin 2.4 L, Globulin 3.1, Albumin/Globulin Ratio 0.8 L I & O for Last 24 hours: Intake & Output 04/16/21 04/17/21 04/18/21 04/19/21 11:59 11:59 11:59 11:59 Intake Total 1400 / 1400 Output Total 1575 / 1575 925 / 925 1999 525 / 525 Balance -175 / -175 -925 / -925 -1999 -525 / -525 Weight 249 lb 12.787 oz 249 lb 12.787 oz 250 lb 251 lb 5.231 oz - Constitutional Comments: Unresponsive - *Routine Respiratory Exam Present: diminished air movement (Respiratory rate in the 30s with only upper airway sounds.) - *Routine Cardiovascular Exam Present: RRR - *Routine Abdominal Exam Present: soft, normoactive bowel sounds, obese - *Routine Extremities Exam Present: edema - *Routine Neurological Exam Absent: alert (Unresponsive) Assessment and Plan (4) Acute respiratory failure Status: Acute Category: Medical Code(s): J96.00 - Acute respiratory failure, unspecified whether with hypoxia or hypercapnia (5) Pneumonia due to COVID-19 virus Status: Acute Category: Medical Code(s): U07.1 - COVID-19; J12.82 - Pneumonia due to coronavirus disease 2019 (6) MARIANO (acute kidney injury) Status: Acute Category: Medical Code(s): N17.9 - Acute kidney failure, unspecified (7) Elevated troponin Status: Acute Category: Medical Code(s): R77.8 - Other specified abnormalities of plasma proteins (8) Pneumonia due to COVID-19 virus Status: Acute Category: Medical Code(s): U07.1 - COVID-19; J12.82 - Pneumonia due to coronavirus disease 2019 (9) Thrombocytopenia associated with COVID-19 Status: Acute Category: Medical Code(s): U07.1 - COVID-19; D69.59 - Other secondary thrombocytopenia (10) CAD (coronary artery disease) Status: Chronic Qualifiers: Coronary Disease-Associated Artery/Lesion type: [place] artery [place] vs. transplanted heart: [place] heart Associated angina: with other forms of angina Qualified Code(s): I25.118 - Atherosclerotic heart disease of [place] coronary artery with other forms of angina pectoris Category: Medical Code(s): I25.10 - Atherosclerotic heart disease of [place] coronary artery without angina pectoris (11) HLD (hyperlipidemia) Status: Chronic Qualifiers: Hyperlipid
--- NOTE | 2021-04-19 09:23 | XR_ITS ---
PROCEDURE: XR CHEST PORTABLE CLINICAL HISTORY: bipap with respiratory changes COMPARISON: CR XR CHEST PORTABLE from 04/13/2021 CR XR CHEST PORTABLE from 04/14/2021 CR XR CHEST PORTABLE from 04/17/2021 FINDINGS: There is cardiomegaly. There is diffuse bilateral alveolar opacification which appears worse from the previous exam and may represent pulmonary edema, diffuse pneumonia, or ARDS. Small bilateral effusions suspected. Prior CABG. IMPRESSION: Diffuse bilateral airspace disease with cardiomegaly Dictated by: Laron Jimenez MD 04/19/2021 10:05 Laron Jimenez MD in [facility] 04/19/2021 10:05
[2021-04-19 09:45] LABS: ABG Base Excess -13.1 mmol/L (-2.4-2.3); ABG HCO3 15.3 mmhg (22.0-26.0); ABG Oxygen Saturation 87 % (90-100); ABG PCO2 41.7 mmhg (35.0-45.0); ABG PO2 56.5 mmhg (80-100); ABG TCO2 16.5 mmhg (23-27)
[2021-04-19 09:46] LABS: Oxygen 90 %
[2021-04-19 09:47] LABS: Allen's Test Patient Unable; Pressure Support 6; Source Right Brachial
[2021-04-19 09:51] LABS: ABG PH 7.18 mmol/L (7.35-7.45)
--- NOTE | 2021-04-19 10:35 | PC.NURSE ---
Spoke with Loly Dupree APRN this am and Dr. Freeman, in RE to critical labs this am- sodium 159. chloride 132, and BUN 127. Dr. Freeman ordered a central line to be placed and a consult for TPN. Dr. Boyd is going to place when available. Dr. Singh is aware of critical ABG's and is going to call and speak with Dr. Freeman in RE to next step. Loly Dupree stated family was ok with intubation if necessary. Pt's BP is stable at this time. Sats 85-87 % on bipap. RT aware of sats as well. Pt is verbally nonresponsive. PERRLA. RR are labored and pt is afebrile. MX continues. Awaiting CB from Dr. Wolf. Loly Dupree APRN stated to hold off on TPN at this time until we decide on next step.
--- NOTE | 2021-04-19 11:23 | DIET.NUTRFU ---
Pt with no recorded PO intake since dinner on 04/13 and very little intake of any sort since 04/11. Pt is unresponsive per MD progressive note and is unable to take BiPap off to eat. TPN is being considered or possible intubation with NG placed for TF. Recommend starting a source of feeding as soon as possible with TF being the preferred source of nutrition since her gut works. If TPN is started I have spoken with Pharmacy and agree with current plan. Will monitor and make TF recommendation if nutrition consult is received.
[2021-04-19 12:17] LABS: POC Glucose,Bedside 181 (70-110)
--- NOTE | 2021-04-19 14:52 | HMH.PULMPN ---
Internal Medicine - PN: Subj *Date: 04/19/21 *Time: 14:52 Interval history: Patient clinical status continued to deteriorate over the weekend with worsening volume status and worsening renal function Exam - Constitutional Constitutional:: Absent: no acute distress, comfortable - HENMT Exam HENMT: Present: normocephalic, atraumatic - Eye Exam Eyes:: Present: normal appearance both eyes and related structures - Neck Exam Neck:: Present: normal visual inspection - Respiratory Exam Respiratory:: Present: respiratory distress, decreased breath sounds, crackles - Cardiovascular Exam Cardiac:: Present: S1, S2 - GI Exam GI:: Present: soft, obese - Neurological Exam Neurological: Absent: alert, awake, normal cognition Lethargic altered minimally responsive to painful stimuli. - Extremities Exam Extremities: Present: no cyanosis, no clubbing, edema Assessment and Plan (1) Acute respiratory failure Status: Acute Category: Medical Code(s): J96.00 - Acute respiratory failure, unspecified whether with hypoxia or hypercapnia (2) Pneumonia due to COVID-19 virus Status: Acute Category: Medical Code(s): U07.1 - COVID-19; J12.82 - Pneumonia due to coronavirus disease 2019 (3) MARIANO (acute kidney injury) Status: Acute Category: Medical Code(s): N17.9 - Acute kidney failure, unspecified (4) Elevated troponin Status: Acute Category: Medical Code(s): R77.8 - Other specified abnormalities of plasma proteins (5) Pneumonia due to COVID-19 virus Status: Acute Category: Medical Code(s): U07.1 - COVID-19; J12.82 - Pneumonia due to coronavirus disease 2019 (6) Thrombocytopenia associated with COVID-19 Status: Acute Category: Medical Code(s): U07.1 - COVID-19; D69.59 - Other secondary thrombocytopenia (7) CAD (coronary artery disease) Status: Chronic Qualifiers: Coronary Disease-Associated Artery/Lesion type: [place] artery [place] vs. transplanted heart: [place] heart Associated angina: with other forms of angina Qualified Code(s): I25.118 - Atherosclerotic heart disease of [place] coronary artery with other forms of angina pectoris Category: Medical Code(s): I25.10 - Atherosclerotic heart disease of [place] coronary artery without angina pectoris (8) HLD (hyperlipidemia) Status: Chronic Qualifiers: Hyperlipidemia type: mixed hyperlipidemia Qualified Code(s): E78.2 - Mixed hyperlipidemia Category: Medical Code(s): E78.5 - Hyperlipidemia, unspecified (9) HTN (hypertension) Status: Chronic Qualifiers: Hypertension type: essential hypertension Category: Medical Code(s): I10 - Essential (primary) hypertension (10) Morbid obesity with body mass index (BMI) of 40.0 to 49.9 Status: Chronic Category: Medical Code(s): E66.01 - Morbid (severe) obesity due to excess calories (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 difficile colitis Status: Acute Category: Medical Code(s): A04.72 - Enterocolitis due to Clostridium difficile, not specified as recurrent (16) Hypernatremia Status: Acute Category: Medical Code(s): E87.0 - Hyperosmolality and hypernatremia - Assessment and plan all Dx Assessment and Plan for all problems:: #Acute hypoxic respiratory failure: #COVID-19 pneumonia: 66-year-old yet to be vaccinated never smoker no prior respiratory complaints presented with worsening fatigue weakness, diarrhea and re
--- NOTE | 2021-04-19 15:38 | PC.NURSE ---
Called RT at this time, sats 82% on Bipap, RT at bedside at this time Very scan U/O. RR remain labored.
[2021-04-19 15:51] LABS: POC Glucose,Bedside 168 (70-110)
--- NOTE | 2021-04-19 15:55 | PC.NURSE ---
Have spoke with Loly Dupree APRN and made her aware that family and Dr. Wolf would like to start the process of transferring pt. Loly Dupree APRN is going to make Dr. Pete MD aware of this. manual BP 90/50 at this time.
--- NOTE | 2021-04-19 21:08 | PC.NURSE ---
Family updated and spoke with this shift on pt's condition. Dr. Freeman and Francisco rounded. Dr. Wolf states that pt needs dialysis and will need to be transferred, for that reason. Pt's family (Britton) is in agreeance with this. Dr. Freeman has started that process. TPN on hold at this time per Dr. Freeman, as well as central line placement. Dr. Wolf wants sats to remain 88 and above on bipap, which pt continues on at this time, or intubation is possible. Very scant u/o noted after dietetics given per sep. Dr. Heath and Pete aware of pt's manual bp of 90/ 50 earlier today and NNO given. Pt remains on tele. MX continues, report given to Hillary Esqueda RN oncoming to this shift.
[2021-04-19 22:18] LABS: POC Glucose,Bedside 184 (70-110)
[2021-04-20] VITALS (31 sets, daily range): BP systolic 82–159; BP diastolic 42–61; PULSE 80–95; RESP 20–34; TEMP 34.7–37.1; O2SAT 85–98; BMI 40.5
--- NOTE | 2021-04-20 01:52 | XR_ITS ---
PROCEDURE INFORMATION: Exam: XR Chest Exam date and time: 04/20/2021 1:52 AM Age: 66 years old Clinical indication: Device placement; Ett placement (vent status); Additional info: Intubation TECHNIQUE: Imaging protocol: XR of the chest. Views: 1 view. COMPARISON: CR XR CHEST PORTABLE 04/19/2021 9:37 AM FINDINGS: Tubes, catheters and devices: Endotracheal tube, with distal tip 2.1 cm above the kumar. Lungs: Redemonstration of patchy airspace and ground-glass opacities, greater in the perihilar region, slightly increased as compared to the in the immediate prior exam. Pleural spaces: Unremarkable. No pleural effusion. No pneumothorax. Heart/Mediastinum: Stable mild cardiomegaly. Bones/joints: Median sternotomy wires. Acute fracture. Degenerative change. IMPRESSION: 1. Endotracheal tube, with distal tip 2.1 cm above the kumar. 2. Redemonstration of patchy airspace and ground-glass opacities, greater in the perihilar region, slightly increased as compared to the in the immediate prior exam. The
--- NOTE | 2021-04-20 01:52 | PC.NURSE ---
PT WAS TRANSFERRED VIA BED FROM 2ND FLOOR MED SURG TO ICU W/STAFF AT 0150
--- NOTE | 2021-04-20 02:05 | PC.NURSE ---
1152 phone screener, Dr. Heath notified of patients O2 sat remaining at 85%, stated that she would need to be intubated according to parameters set up by Dr. Wolf 0003 Dr. Wolf notified of patients O2 sat remaining at 85%, gave orders to increase pressure to 22, and that pressure could be increased to 24 if need be, gave order for 4 mg of bumex, stated to wait an hour and see if O2 sats improved, respiratory made changes to pressure, bumex given per order, Dr. Wolf stated that if this didn't work to go ahead and intubate sats remained 84-85%, output at 0115 was 100 mL, son Britton Muñoz, next of kin notified at 0115, of patient's declining status, stated to go ahead with intubation
[2021-04-20 02:26] LABS: ABG Base Excess -16.8 mmol/L (-2.4-2.3); ABG HCO3 12.7 mmhg (22.0-26.0); ABG Oxygen Saturation 96 % (90-100); ABG PCO2 40.9 mmhg (35.0-45.0); ABG PO2 88.9 mmhg (80-100); ABG TCO2 13.9 mmhg (23-27)
[2021-04-20 02:28] LABS: Oxygen 100 %; Tidal Volume 440
[2021-04-20 02:29] LABS: Allen's Test Non Applicable; PEEP 16; Source Right Brachial; Vent Rate 20
[2021-04-20 02:34] LABS: ABG PH 7.11 mmol/L (7.35-7.45)
--- NOTE | 2021-04-20 02:50 | P.PN_ITS ---
Acute Rapid Response Note - Subjective Date Responded: 04/20/21 Time Responded: 01:30 Provider Note: called for resp failure and need for intubation in this covid-19 pt - Objective Findings: Vital Signs - Last 4 Hours Temperature 98.0 F 04/20/21 00:00 Temperature Source Axillary 04/20/21 00:00 Pulse Rate 91 H 04/20/21 00:00 Respiratory Rate 34 H 04/20/21 00:00 Blood Pressure 115/50 L 04/20/21 00:00 Blood Pressure Mean 71 04/20/21 00:00 Blood Pressure Source Automatic Cuff 04/20/21 00:00 Blood Pressure Position Supine 04/19/21 15:08 02 Sat by Pulse Oximetry 85 L 04/20/21 00:00 Oxygen Delivery Method 04/20/21 01:00 Oxygen Flow Rate (LPM) 50 04/17/21 11:36 Lab Results for Past 12 Hours 04/20/21 02:23: Specimen Source Right brachial, O2 % 100, ABG pH 7.11 L*, ABG pCO2 40.9, ABG pO2 88.9, ABG HCO3 12.7 L, ABG Total CO2 13.9 L, ABG O2 Satu ration 96, ABG Base Excess -16.8 L, Laron Test Non applicable, Vent Rate 20, Tidal Volume 440, PEEP 16 04/19/21 21:05: POC Glucose 184 H 04/19/21 15:36: POC Glucose 168 H My Orders Category Date Time Status Chest XR -- portable [XR chest portable] Stat Exams 04/20/21 01:52 Completed Rapid Response Exam - General General appearance: obtunded, obese - Head Head exam: normocephalic - Eye Eye exam: Present: PERRL - ENT ENT exam: Present: mucous membranes dry - Neck Neck exam: Present: trachea midline - Respiratory Respiratory exam: Present: respiratory distress - Cardiovascular Cardiovascular exam: Present: tachycardia - Abdominal Exam Abdominal exam: Present: soft - Extremities Exam Extremities exam: Present: pedal edema - Neurological Exam Neurological exam: Present: other (obtunded w/o posturing ) - Skin Skin exam: Absent: rash RR Procedures/Assess/Plan - Bedside Intubation Time Out Performed: No Sedative: Versed Mg given: 4 Laryngoscope: Richardson Tube size: 7.5 Tube uncuffed: No Secured location: lips Placement confirmation: visualized tube passing through cords, equal breath sounds bilaterally Patient tolerated procedure intubation: no complications Intubation Complications: none (1) Respiratory failure requiring intubation Status: Acute (2) COVID-19 with pulmonary comorbidity Status: Acute (3) Acute respiratory failure due to COVID-19 Status: Acute - Assessment and plan all Dx Assessment and Plan for all problems:: resp as per pcp /pulm
--- NOTE | 2021-04-20 03:05 | PC.NURSE ---
, [address]aria [address], Rosetta Esqueda, Prerna Arias, Tiara Aguilar, and Neha from RT present in room for intubation. 01:38- 4mg Versed given IV by REFUGIO Huff. intubated @ 01:39, Pt's O2 was not improving. Intubated again @ 01:41 pt's O2 improved. 25 @ lip with 7.5 ET. 01:42 Chest x-ray completed, pulled tube back to 24 @ lip. 01:50 Pt was transferred to ICU unit
[2021-04-20 05:20] LABS: POC Glucose,Bedside 212 (70-110)
--- NOTE | 2021-04-20 06:00 | XR_ITS ---
PROCEDURE INFORMATION: Exam: XR Chest Exam date and time: 04/20/2021 6:00 AM Age: 66 years old Clinical indication: Device placement; Ett placement (vent status); Additional info: Mechanical ventilation and ng placement TECHNIQUE: Imaging protocol: XR of the chest. Views: 1 view. COMPARISON: CR XR CHEST PORTABLE 04/20/2021 1:40 AM FINDINGS: Tubes, catheters and devices: Tip of NG tube lies below the GE junction, however tip is not included on the study. Tip of ET tube lies 4.3 cm from the kumar. Lungs: Worsening patchy consolidation the lung bases, stable multifocal airspace opacities otherwise. Pleural spaces: Cannot exclude small effusions. No pneumothorax. Heart/Mediastinum: Stable cardiomegaly. Bones/joints: Median sternotomy wires are present. IMPRESSION: 1. Worsening consolidation at the lung bases, similar pulmonary opacities bilaterally otherwise, findings concerning for pneumonia versus edema. Possible small effusions. 2. Support lines and tubes as above.
[2021-04-20 06:18] LABS: Basophils # 0.3 K/mm3 (0-0.2); Basophils % 1.2 % (0.1-2.0); Eosinophils # 0.1 K/mm3 (0.0-0.4); Eosinophils % 0.5 % (0.1-12.0); Hematocrit 33.6 % (37.0-47.0); Hemoglobin 9.9 g/dL (12.2-16.2); Lymphocytes % 4.8 % (10-50); Mean Corpuscular HGB Conc 29.5 g/dL (31.8-35.4); Mean Corpuscular Hemoglobin 29.8 pg (27.0-31.2); Mean Platelet Volume 13.6 fl (7.4-10.4); Monocytes # 0.5 K/mm3 (0.1-1.0); Monocytes % 2.6 % (1.7-9.3); Neutrophils # 18.6 K/mm3 (1.8-7.8); Neutrophils % 90.9 % (37.0-80.0); Platelet Count 143 K/mm3 (142-424); Red Blood Count 3.32 M/mm3 (4.20-5.40); Red Cell Distribution Width 15.9 % (11.5-17.5); White Blood Count 20.5 K/mm3 (4.8-10.8)
[2021-04-20 06:25] LABS: MANUAL DIFFERENTIAL MANUAL DIFFERENTIAL (MANUAL DIFF)
[2021-04-20 06:47] LABS: Alanine Aminotransferase 81 U/L (12-78); Albumin Level 2.5 g/dl (3.5-5.0); Albumin/Globulin Ratio 0.8 (1.1-1.8); Alkaline Phosphatase 153 U/L (38-126); Aspartate Amino Transferase 98 U/L (14-36); Bilirubin,Total 1.6 mg/dl (0.2-1.3); Calcium 8.3 mg/dl (8.4-10.2); Carbon Dioxide 17 mmol/L (22.0-30.0); Creatinine Clearance Estimated 22 mL/min (50-200); Estimated Glomerular Filt Rate 10 ml/min (>60); GFR (African American) 12 ML/MIN (>60); Globulin 3.3 g/dL (1.3-3.2); Glucose 221 mg/dl (74-100); Magnesium 3.2 mg/dl (1.6-2.3); Phosphorous 5.5 mg/dl (2.5-4.5); Total Protein,Serum 5.8 g/dl (6.3-8.2); Triglycerides 240 mg/dl (30-150)
[2021-04-20 07:10] LABS: Anion Gap 14.3 mEq/L (5-15); Potassium 5.3 mmoL/L (3.5-5.1)
[2021-04-20 07:11] LABS: Blood Urea Nitrogen 155 mg/dl (7-17); Chloride 128 mmol/L (98-107); Sodium 154 mmol/L (136-145)
[2021-04-20 07:26] LABS: ABG Base Excess -13.4 mmol/L (-2.4-2.3); ABG HCO3 15.3 mmhg (22.0-26.0); ABG Oxygen Saturation 98 % (90-100); ABG PCO2 44.4 mmhg (35.0-45.0); ABG PO2 123.5 mmhg (80-100); ABG TCO2 16.7 mmhg (23-27)
[2021-04-20 07:33] LABS: Oxygen 100 %; PEEP 16; Tidal Volume 440; Vent Rate 20
[2021-04-20 07:34] LABS: ABG PH 7.16 mmol/L (7.35-7.45); Allen's Test ACCEPTABLE; Source Right Radial
--- NOTE | 2021-04-20 08:02 | PC.NURSE ---
PT. ARRIVED TO UNIT AT 0200. RECEIVED REPORT FROM Tejal JUAREZ RN. 0200- TONYA PATEL MD. NEW ORDERS: PROPOFOL, FENTANYL, AND LEVOPHED. 0210- PROPOFOL STARTED AT 10 MCG/KG/MIN 0213- FENTANYL STARTED AT 25 MCG/HR; LEVOPHED STARTED AT 28 MCG/MIN, KEEP MAP >65 0230- LEVOPHED TITRATED TO 30 MCG/MIN 0300- LEVOPHED TITRATED TO 16 MCG/MIN 0638- LEVOPHED TITRATED TO 12 MCG/MIN
[2021-04-20 08:26] LABS: Eosinophils % 4 % (0-3); Lymphocytes % 2 % (10-50); Monocytes % 2 % (2-9); Neutrophils % 92 % (42-76); Nucleated Red Blood Cells 1; Total Cells Counted 100
[2021-04-20 08:27] LABS: Hypochromasia 2+; Macrocytosis 2+; Platelet Estimate Normal
--- NOTE | 2021-04-20 09:05 | HMH.ACPN2 ---
<Julia Lopez - Last Filed: 04/20/21 12:44> Internal Medicine - PN: Subj *Date: 04/20/21 *Time: 12:44 Interval history: Patient was intubated and placed on the vent around 2:30 AM. She remains on the vent with Tidal volume of 440 assist-control of 20 and 16 of PEEP. She is on 100% FiO2. ABGs this morning show a pH of 7.16 PCO2 of 44.4 PO2 of 123.5 and a bicarb of 15.3. She is on fentanyl on profull propofol as well as norepinephrine drip. She is sedated without response. Other labs this morning show white blood cell count of 20,500 hemoglobin of 9.9 hematocrit 33.6. Blood chemistries show a slightly improved sodium at 154, potassium is stable at 5.3. Renal function has worsened with a BUN of 155 and creatinine of 4.5. Liver functions are elevated with an AST of 98 and ALT of 81. Exam Vital signs and Labs for Last 24 Hours: Temp Pulse Resp BP Pulse Ox 98.4 F 89 20 112/57 L 98 04/20/21 06:49 04/20/21 06:49 04/20/21 06:49 04/20/21 06:49 04/20/21 06:49 Laboratory Results - last 24 hr 04/19/21 09:40: Specimen Source Right brachial, O2 % 90, ABG pH 7.18 L*, ABG pCO2 41.7, ABG pO2 56.5 L, ABG HCO3 15.3 L, ABG Total CO2 16.5 L, ABG O2 Saturation 87 L*, ABG Base Excess -13.1 L, Laron Test Patient unable 04/19/21 12:05: POC Glucose 181 H 04/19/21 15:36: POC Glucose 168 H 04/19/21 21:05: POC Glucose 184 H 04/20/21 02:23: Specimen Source Right brachial, O2 % 100, ABG pH 7.11 L*, ABG pCO2 40.9, ABG pO2 88.9, ABG HCO3 12.7 L, ABG Total CO2 13.9 L, ABG O2 Saturation 96, ABG Base Excess -16.8 L, Laron Test Non applicable, Vent Rate 20, Tidal Volume 440, PEEP 16 04/20/21 05:14: POC Glucose 212 H 04/20/21 05:16: WBC 20.5 H* D, RBC 3.32 L, Hgb 9.9 L, Hct 33.6 L, MCV 101.0 H, MCH 29.8, MCHC 29.5 L, RDW 15.9, Plt Count 143 D, MPV 13.6 H, Neut % (Auto) 90.9 H, Lymph % (Auto) 4.8 L, [place] % (Auto) 2.6, Eos % (Auto) 0.5, Baso % (Auto) 1.2, Neut # (Auto) 18.6 H, Lymph # (Auto) 1.0, [place] # (Auto) 0.5, Eos # (Auto) 0.1, Baso # (Auto) 0.3 H, Total Counted 100, Neutrophils % (Manual) 92 H, Lymphocytes % (Manual) 2 L, Monocytes % (Manual) 2, Eosinophils % (Manual) 4 H, Nucleated RBCs 1, Platelet Estimate Normal, Hypochromasia 2+, Macrocytosis 2+ 04/20/21 05:16: Sodium 154 H*, Potassium 5.3 H, Chloride 128 H, Carbon Dioxide 17 L, Anion Gap 14.3, BUN 155 H*, Creatinine 4.50 H D, Estimated Creat Clear 22, Estimated GFR 10 L*, Est GFR ( Amer) 12 L* D, Glucose 221 H, Calcium 8.3 L, Phosphorus 5.5 H, Magnesium 3.2 H, Total Bilirubin 1.6 H, AST 98 H D, ALT 81 H D, Alkaline Phosphatase 153 H, Total Protein 5.8 L, Albumin 2.5 L, Globulin 3.3 H, Albumin/Globulin Ratio 0.8 L, Triglycerides 240 H 04/20/21 07:00: Specimen Source Right radial, O2 % 100, ABG pH 7.16 L*, ABG pCO2 44.4, ABG pO2 123.5 H, ABG HCO3 15.3 L, ABG Total CO2 16.7 L, ABG O2 Saturation 98, ABG Base Excess -13.4 L, Laron Test Acceptable, Vent Rate 20, Tidal Volume 440, PEEP 16 I & O for Last 24 hours: Intake & Output 04/17/21 04/18/21 04/19/21 04/20/21 11:59 11:59 11:59 11:59 Intake Total 0 / 0 120 / 120 Output Total 925 / 925 1999 525 / 525 505 / 505 Balance -925 / -925 -1999 / -525 / -525 -385 / -385 Weight 249 lb 12.787 oz 250 lb 251 lb 5.231 oz 252 lb 4.8 oz Microbiology Reports for the Last 24 Hours: Microbiology 04/20/21 03:07 Sputum - Expectorated Sputum Gram Stain - Final - Constitutional no acute distress Comments: Appears sedated and comfortable - *Routine Respiratory Exam Present: CTA bilaterally - *Routine Cardiovascular Exam Present: RRR (Monitor showing sinus rhythm) - *Routine Abdominal Exam Present: soft, normoactive bowel sounds, obese Comments: NG tube in place for meds. - *Routine Extremities Exam Present: edema - *Routine Neurological Exam Absent: alert (Sedated) Assessment and Plan (1) Respiratory failure requiring intubation Status: Acute Category: Medical Code(s): J96.90 - Respiratory failure, u
--- NOTE | 2021-04-20 09:06 | HMH.PULMPN ---
Internal Medicine - PN: Subj *Date: 04/20/21 *Time: 11:56 Interval history: Patient respiratory significantly declined overnight needing intubation and mechanical ventilatory support. Assessment and Plan (1) Respiratory failure requiring intubation Status: Acute Category: Medical Code(s): J96.90 - Respiratory failure, unspecified, unspecified whether with hypoxia or hypercapnia (2) COVID-19 with pulmonary comorbidity Status: Acute Category: Medical Code(s): U07.1 - COVID-19; J98.4 - Other disorders of lung (3) Acute respiratory failure due to COVID-19 Status: Acute Category: Medical Code(s): U07.1 - COVID-19; J96.00 - Acute respiratory failure, unspecified whether with hypoxia or hypercapnia - Assessment and plan all Dx Assessment and Plan for all problems:: #Acute hypoxic respiratory failure: #COVID-19 pneumonia: 66-year-old yet to be vaccinated never smoker no prior respiratory complaints presented with worsening fatigue weakness, diarrhea and respiratory distress for the last week and found to be COVID-19 positive. Her other comorbidities including CKD, diabetes mellitus, dyslipidemia and CAD Chest x-ray admission bilateral lower lobe pulmonary infiltrates along with concerning left-sided pleural effusion and cardiology. D-dimer elevated at 1.09. CRP at 91.41 ferritin at 420 Lower extremity Doppler negative for DVT. Echocardiogram showed grade 1 LV diastolic dysfunction. Nasal MRSA PCR negative. Blood culture no growth 5 days She is also receiving metronidazole for her C. difficile. Patient clinical status continued to decline since admission. Her respiratory status improved since admission with improving chest x-ray and FiO2 to 45% however unfortunately renal function continued to worsen with worsening uremia with a BUN at 127 this morning leading to worsening mentation and uremic encephalopathy. Patient also having worsening volume status and worsening oxygen requirements, this morning she is back 100% FiO2 with BiPAP support to maintain her saturation goal of 88 to 92%. Overall even though patient's pulmonary status is improving her renal function continued to get worse with worsening uremia and volume status and I am concerned that patient might be needing dialysis. I have extensively discussed this with the family and the family would like for the patient to be full code and pursue dialysis options at this point of time. I have also informed the family tht this patient might not have a open bed at OSH to initiate dialysis in a timely manner given current acute Covid crisis. This plan was relayed to the primary team on 04/19/21 who will initiate and facilitate transfer to higher level of care where she can receive CVVHD. Overall this patient's prognosis is guarded given her worsening renal function needing CVVHD at this point of time. Plan: -Continue mechanical ventilatory support - Continue AnalgoSedation with Propofol and Fentanyl with CPOT gal less than or euqal to 2 and RASS goal of 0 to 1 (Deep sedation) - VAP bundle Elevate head of the bed at 30 to 45 degrees Oral care with chlorhexidne GI ulcer prophylaxis - Famotidine 20mg IV BID Chemical DVT prophylaxis -Patient respiratory rapidly declined overnight with increasing pressure requirements on BiPAP with saturations not reaching desired levels. Plan was made to intubate and mechanically ventilated. ABG post intubation showed significant metabolic acidosis. We will try to increase minute ventilation to respiratory compensated metabolic acidosis. Rate was increased to 24 and tidal volume to 460. FiO2 weaned to 70%. Patient continues remain at PEEP of 20. chest x-rays continue to show worsening volume status. -Continue cefepimex x 7 days DuoNebs every 6 scheduled -Continue dexamethasone. Will discontinue barcitinib given new onset worsening shock and declining clinical status. She initially refused remdesivir and her MARIANO precludes
[2021-04-20 12:40] LABS: POC Glucose,Bedside 232 (70-110)
[2021-04-21] VITALS (15 sets, daily range): BP systolic 115–131; BP diastolic 45–88; PULSE 77–91; RESP 21–25; TEMP 36.6–37.2; O2SAT 60–93; BMI 40.1
--- NOTE | 2021-04-21 05:00 | PC.NURSE ---
[facility] called with bed availability and # to call report. Pt will go to 9th floor room 238.
--- NOTE | 2021-04-21 05:16 | PC.NURSE ---
Contacted [employer] at this time to check flights status.
--- NOTE | 2021-04-21 05:20 | PC.NURSE ---
[place] [facility] declined d/t weather. States they will check with [facility] [employer] and check with [employer] as well. They will return the call with flight status.
--- NOTE | 2021-04-21 05:26 | PC.NURSE ---
Spoke to the charge nurse in the 9th floor pulmonology ICU and received accepting physicians name. Updated the charge nurse that we are currently waiting on flight status/acceptance to send patient, and will update them accordingly. Pt is to go to [facility], 9th floor, Pulmonology ICU bed 238. # to speak to charge/report is [phone].
--- NOTE | 2021-04-21 05:28 | PC.NURSE ---
[place] [facility] declined due to weather. [employer] declined due to weather. This RN was informed that they would keep the ticket open for flight acceptance pending changes in the weather.
--- NOTE | 2021-04-21 05:36 | PC.NURSE ---
Spoke to [facility] at this time to notify them of possible ground transport. Informed them that preferred method of transfer be air, but if flight status does not change d/t weather, pt will have to go by [facility] transport. Asst. Director of [facility]'s stated they would have a transfer truck available after 8am to take patient to . Notified Dr. Freeman at this time that patient has a bed availabe at . Informed him of flight status, and the possibility of ground transport. Transfer record completed at this time.
--- NOTE | 2021-04-21 06:00 | XR_ITS ---
PROCEDURE INFORMATION: Exam: XR Chest Exam date and time: 04/21/2021 6:00 AM Age: 66 years old Clinical indication: Device placement; Ett placement (vent status); Patient HX: Covid; Additional info: Intubation TECHNIQUE: Imaging protocol: XR of the chest. Views: 1 view. COMPARISON: CR XR CHEST PORTABLE 04/20/2021 5:30 AM FINDINGS: Tubes, catheters and devices: Endotracheal and feeding tubes. The endotracheal tube terminates 3.6 cm above the kumar. Lungs: COPD, interstitial disease, and asymmetric basilar airspace disease. Pleural spaces: Small pleural effusions. Heart/Mediastinum: Cardiac silhouette upper limits of normal size. Bones/joints: Degenerative change. Median sternotomy. IMPRESSION: 1. COPD, interstitial disease, and asymmetric basilar airspace disease. 2. Endotracheal and feeding tubes. The endotracheal tube terminates 3.6 cm above the kumar.
[2021-04-21 06:33] LABS: Basophils % 0.2 % (0.1-2.0); Eosinophils % 0.1 % (0.1-12.0); Hematocrit 26.7 % (37.0-47.0); Lymphocytes # 0.9 K/mm3 (0.7-4.5); Mean Corpuscular HGB Conc 30.1 g/dL (31.8-35.4); Mean Corpuscular Hemoglobin 29.9 pg (27.0-31.2); Mean Corpuscular Volume 99.3 fl (81-99); Mean Platelet Volume 13.3 fl (7.4-10.4); Monocytes # 0.5 K/mm3 (0.1-1.0); Monocytes % 3.8 % (1.7-9.3); Neutrophils # 12.9 K/mm3 (1.8-7.8); Neutrophils % 89.9 % (37.0-80.0); Platelet Count 120 K/mm3 (142-424); Red Blood Count 2.69 M/mm3 (4.20-5.40); Red Cell Distribution Width 15.8 % (11.5-17.5); White Blood Count 14.3 K/mm3 (4.8-10.8)
[2021-04-21 06:37] LABS: MANUAL DIFFERENTIAL MANUAL DIFFERENTIAL (MANUAL DIFF)
--- NOTE | 2021-04-21 06:42 | PC.NURSE ---
Pt morning FSBS 466. Per protocol, states to notify MD. Dr. Freeman paged at this time.
--- NOTE | 2021-04-21 06:43 | PC.NURSE ---
Tejal Robbins RN spoke to Dr. Freeman at this time. stated to give 20 units of Insulin Lispro subq at this time. Order repeated and verified by REFUGIO Jimenez at this time.
[2021-04-21 06:50] LABS: Alanine Aminotransferase 64 U/L (12-78); Albumin Level 2.2 g/dl (3.5-5.0); Albumin/Globulin Ratio 0.8 (1.1-1.8); Alkaline Phosphatase 156 U/L (38-126); Anion Gap 19.4 mEq/L (5-15); Aspartate Amino Transferase 84 U/L (14-36); Bilirubin,Total 1.3 mg/dl (0.2-1.3); Calcium 8.1 mg/dl (8.4-10.2); Carbon Dioxide 16 mmol/L (22.0-30.0); Chloride 121 mmol/L (98-107); Creatinine Clearance Estimated 18 mL/min (50-200); Estimated Glomerular Filt Rate 8 ml/min (>60); GFR (African American) 10 ML/MIN (>60); Globulin 2.8 g/dL (1.3-3.2); Potassium 5.4 mmoL/L (3.5-5.1)
[2021-04-21 07:00] LABS: Blood Urea Nitrogen 170 mg/dl (7-17); Glucose 423 mg/dl (74-100); Sodium 151 mmol/L (136-145)
[2021-04-21 07:27] LABS: ABG Base Excess -9.9 mmol/L (-2.4-2.3); ABG HCO3 16.2 mmhg (22.0-26.0); ABG Oxygen Saturation 91 % (90-100); ABG PCO2 32.6 mmhg (35.0-45.0); ABG PH 7.32 mmol/L (7.35-7.45); ABG PO2 67.5 mmhg (80-100); ABG TCO2 17.2 mmhg (23-27)
[2021-04-21 07:29] LABS: Allen's Test Patient Unable; Oxygen 60 %; PEEP 16; Tidal Volume 460; Vent Rate 24
[2021-04-21 07:30] LABS: Source Right Radial
[2021-04-21 07:31] LABS: Lactate Arterial 2.2 mmol/L (0.4-2.0)
[2021-04-21 08:03] LABS: Lymphocytes % 5 % (10-50); Monocytes % 2 % (2-9); Neutrophils % 93 % (42-76); Total Cells Counted 100
[2021-04-21 08:05] LABS: Hypochromasia 1+; Platelet Estimate Slight Decrease
--- NOTE | 2021-04-21 08:16 | HMH.ACPN2 ---
<Julia Lopez - Last Filed: 04/21/21 08:16> Internal Medicine - PN: Subj *Date: 04/21/21 *Time: 08:16 Interval history: Patient has been stable through the night. She remains on the ventWith a tidal volume of 460 assist-control of 2416 of PEEP, and 60% FiO2. ABGs with these vent settings this a.m. showed a pH of 7.32, PCO2 of 32.6, PO2 of 67.5, and bicarb of 16.2.Chest x-ray shows COPD interstitial disease . Other laboratory data showed an improved white blood cell count at 14,000. 300 and hemoglobin of 8 hematocrit of 26.7. Blood chemistries show an improved sodium at 151 and potassium of 5.4 BUN is 170 with a creatinine of 5.3. Patient remains sedated on fentanyl and propofol. She remains on Levophed as well. Nurses report brown urine. has reported having available bed and patient will be transported to this facility today for ongoing care and dialysis. Exam Vital signs and Labs for Last 24 Hours: Temp Pulse Resp BP Pulse Ox 97.9 F 79 24 124/51 L 91 L 04/21/21 08:01 04/21/21 08:01 04/21/21 08:01 04/21/21 08:01 04/21/21 08:01 Laboratory Results - last 24 hr 04/20/21 05:16: Total Counted 100, Neutrophils % (Manual) 92 H, Lymphocytes % (Manual) 2 L, Monocytes % (Manual) 2, Eosinophils % (Manual) 4 H, Nucleated RBCs 1, Platelet Estimate Normal, Hypochromasia 2+, Macrocytosis 2+ 04/20/21 12:31: POC Glucose 232 H 04/21/21 05:35: WBC 14.3 H D, RBC 2.69 L, Hgb 8.0 L, Hct 26.7 L, MCV 99.3 H, MCH 29.9, MCHC 30.1 L, RDW 15.8, Plt Count 120 L, MPV 13.3 H, Neut % (Auto) 89.9 H, Lymph % (Auto) 6.0 L, [place] % (Auto) 3.8, Eos % (Auto) 0.1, Baso % (Auto) 0.2, Neut # (Auto) 12.9 H, Lymph # (Auto) 0.9, [place] # (Auto) 0.5, Eos # (Auto) 0.0, Baso # (Auto) 0.0, Total Counted 100, Neutrophils % (Manual) 93 H, Lymphocytes % (Manual) 5 L, Monocytes % (Manual) 2, Platelet Estimate Slight decrease, Hypochromasia 1+ 04/21/21 05:35: Sodium 151 H*, Potassium 5.4 H, Chloride 121 H, Carbon Dioxide 16 L, Anion Gap 19.4 H, BUN 170 H*, Creatinine 5.30 H, Estimated Creat Clear 18, Estimated GFR 8 L*, Est GFR ( Amer) 10 L*, Glucose 423 H*, Calcium 8.1 L, Total Bilirubin 1.3, AST 84 H, ALT 64, Alkaline Phosphatase 156 H, Total Protein 5.0 L, Albumin 2.2 L D, Globulin 2.8, Albumin/Globulin Ratio 0.8 L 04/21/21 06:00: ABG Lactate 2.2 H 04/21/21 06:00: Specimen Source Right radial, O2 % 60, ABG pH 7.32 L, ABG pCO2 32.6 L, ABG pO2 67.5 L, ABG HCO3 16.2 L, ABG Total CO2 17.2 L, ABG O2 Saturation 91, ABG Base Excess -9.9 L, Laron Test Patient unable, Vent Rate 24, Tidal Volume 460, PEEP 16 I & O for Last 24 hours: Intake & Output 04/18/21 04/19/21 04/20/21 04/21/21 11:59 11:59 11:59 11:59 Intake Total 0 / 0 215 / 346 959 / 959 Output Total 1999 525 / 525 505 / 505 5 / 5 Balance -1999 / -525 / -525 -290 / -159 954 / 954 Weight 250 lb 251 lb 5.231 oz 252 lb 4.8 oz 250 lb 2 oz Microbiology Reports for the Last 24 Hours: Microbiology 04/20/21 03:07 Sputum - Expectorated Sputum Gram Stain - Final - Constitutional no acute distress Comments: Sedated and appears comfortable - *Routine Respiratory Exam Present: CTA bilaterally (Anteriorly ) - *Routine Cardiovascular Exam Present: RRR (Monitor showing sinus rhythm) - *Routine Abdominal Exam Present: soft, normoactive bowel sounds - *Routine Extremities Exam Present: edema (Generalized body edema) - *Routine Neurological Exam Absent: alert (Remains sedated) Assessment and Plan (1) Respiratory failure requiring intubation Status: Acute Category: Medical Code(s): J96.90 - Respiratory failure, unspecified, unspecified whether with hypoxia or hypercapnia (2) COVID-19 with pulmonary comorbidity Status: Acute Category: Medical Code(s): U07.1 - COVID-19; J98.4 - Other disorders of lung (3) Acute respiratory failure due to COVID-19 Status: Acute Category: Medical Code(s): U07.1 - COVID-19; J96.00 - Acute respiratory failure, unspecified whethe
--- NOTE | 2021-04-21 09:05 | HMH.PULMPN ---
Internal Medicine - PN: Subj *Date: 04/21/21 *Time: 09:05 Assessment and Plan (1) Respiratory failure requiring intubation Status: Acute Category: Medical Code(s): J96.90 - Respiratory failure, unspecified, unspecified whether with hypoxia or hypercapnia (2) COVID-19 with pulmonary comorbidity Status: Acute Category: Medical Code(s): U07.1 - COVID-19; J98.4 - Other disorders of lung (3) Acute respiratory failure due to COVID-19 Status: Acute Category: Medical Code(s): U07.1 - COVID-19; J96.00 - Acute respiratory failure, unspecified whether with hypoxia or hypercapnia (4) HTN (hypertension) Status: Chronic Category: Medical Code(s): I10 - Essential (primary) hypertension (5) Morbid obesity Status: Chronic Category: Medical Code(s): E66.01 - Morbid (severe) obesity due to excess calories (6) Type 2 diabetes mellitus Status: Chronic Category: Medical Code(s): E11.9 - Type 2 diabetes mellitus without complications (7) Chronic kidney disease Status: Chronic Category: Medical Code(s): N18.9 - Chronic kidney disease, unspecified (8) Hypothyroidism Status: Chronic Category: Medical Code(s): E03.9 - Hypothyroidism, unspecified (9) Left leg DVT Status: Acute Category: Medical Code(s): I82.402 - Acute embolism and thrombosis of unspecified deep veins of left lower extremity (10) C. difficile colitis Status: Acute Category: Medical Code(s): A04.72 - Enterocolitis due to Clostridium difficile, not specified as recurrent (11) Hypernatremia Status: Acute Category: Medical Code(s): E87.0 - Hyperosmolality and hypernatremia (12) Pneumonia due to COVID-19 virus Status: Acute Category: Medical Code(s): U07.1 - COVID-19; J12.82 - Pneumonia due to coronavirus disease 2019 (13) MARIANO (acute kidney injury) Status: Acute Category: Medical Code(s): N17.9 - Acute kidney failure, unspecified (14) Elevated troponin Status: Acute Category: Medical Code(s): R77.8 - Other specified abnormalities of plasma proteins (15) Thrombocytopenia associated with COVID-19 Status: Acute Category: Medical Code(s): U07.1 - COVID-19; D69.59 - Other secondary thrombocytopenia (16) CAD (coronary artery disease) Status: Chronic Category: Medical Code(s): I25.10 - Atherosclerotic heart disease of [place] coronary artery without angina pectoris (17) HLD (hyperlipidemia) Status: Chronic Category: Medical Code(s): E78.5 - Hyperlipidemia, unspecified - Assessment and plan all Dx Assessment and Plan for all problems:: #Acute hypoxic respiratory failure: #COVID-19 pneumonia: 66-year-old yet to be vaccinated never smoker no prior respiratory complaints presented with worsening fatigue weakness, diarrhea and respiratory distress for the last week and found to be COVID-19 positive. Her other comorbidities including CKD, diabetes mellitus, dyslipidemia and CAD Chest x-ray admission bilateral lower lobe pulmonary infiltrates along with concerning left-sided pleural effusion and cardiology. D-dimer elevated at 1.09. CRP at 91.41 ferritin at 420 Lower extremity Doppler negative for DVT. Echocardiogram showed grade 1 LV diastolic dysfunction. Nasal MRSA PCR negative. Blood culture no growth 5 days She is also receiving metronidazole for her C. difficile. Patient clinical status continued to decline since admission. Her respiratory status improved since admission with improving chest x-ray and FiO2 to 45% however unfortunately renal function continued to worsen with worsening uremia with a BUN at 127 this morning leading to worsening mentation and uremic encephalopathy. Patient also having worsening volume status and worsening oxygen requirements, this morning she is back 100% FiO2 with BiPAP support to maintain her saturation goal of 88 to 92%. Overall even though patient's pulmonary status is improving her renal function continued to get worse with worsening uremia a
--- NOTE | 2021-04-21 10:27 | PC.NURSE ---
pt left facility with [facility] at 1010. Zohaib Broussard rn on squad with EMS crew. family aware pt leaving at this time. called at 1028 and notified [facility] that pt was enroute.
[2021-04-23 23:03] LABS: POC Glucose,Bedside 466 (70-110)
[2021-04-23 23:03] LABS: POC Glucose,Bedside 405 (70-110)
--- NOTE | 2021-04-26 15:07 | HMH.DCSUM ---
General - General Admission date:: 04/08/21 <Inocente Freeman - 06/06/21 13:35> 04/08/21 <Lopez,Julia - 04/26/21 15:33> Discharge date: 04/21/21 <Julia Lopez - 04/26/21 16:20> HPI HPI: Ms. Huerta is a 66-year-old female with a history of coronary artery disease, type 2 diabetes, GERD, hyperlipidemia, hypertension, history of [place], and history of renal disease. She states she began feeling poorly last week when she brought her significant other up to the emergency room. She had increasing weakness to the point where she could hardly move around her home. She had diarrhea which was profuse for the previous 3 days. She stated the past 3 nights she had extreme sweating episodes. She was unsure if she had a fever. She had a slight cough and mild shortness of breath, but no chest pain. She came to the emergency room for evaluation and was found to have COVID-19 along with pneumonia. Her blood work showed a low white blood cell count and also thrombocytopenia. Her renal function was elevated as was her troponin, C-reactive protein, and BNP. Her magnesium was low. She was admitted and given a dose of dexamethasone along with Zofran in the emergency room. She was started on most of her home medications along with insulin. <Julia Lopez - 04/26/21 16:20> Hospital Course Hospital Course: On admission patient was started on Covid protocol. She had stool studies due to her diarrhea which showed C. difficile. She was started on metronidazole. Cardiology and pulmonology were consulted. Renal function was noted to be compromised. Initially out of bed activity was encouraged. Her respiratory status did deteriorate and she was started on Vapotherm on 04/11/2021 and with worsening O2 sats was changed to BiPAP. CODE STATUS at this time was discussed with the patient and she was ambivalent about going on a ventilator. Remdesivir was not an option due to her low renal function. Meds were changed to IV meds due to her difficulty with taking medication by mouth.. Pulmonology escalated antibiotic treatment with cefepime and clindamycin.. Barcitinib was increased to 2 mg. Patient was able to tolerate high flow oxygen for 1 day. Renal function was stable. On 04/15/2021 she had to be placed back on BiPAP. Her mental status also was deteriorating and renal function was worse with a BUN of 100 and creatinine of 2.4. She was now on duo nebs every 6 hours. On 2020 patient remained on BiPAP. She continued to be less responsive. CT of the head was not done due to her unstable respiratory status. She was unable to stay off BiPAP for the procedure. IV fluids were changed due to hypernatremia. On 04/19/2021 patient remained on BiPAP, was unresponsive, with creatinine increase to 3, and A rapid respiratory rate. At this time sodium was 159 with potassium of 5.3. Dr. Freeman discussed patient's condition with the family who wished everything to be done except for dialysis. Deep line was placed. TPN was held for now due to possible intubation. Dr. Wolf also discussed patient's condition with son, Britton, who wished for the patient to remain a full code. He also wished to pursue dialysis if necessary. Dr. Freeman therefore began contacting tertiary care hospitals for possible transfer to ICU beds for this procedure. Patient status continued to deteriorate. In the a.m. of 04/20/2021 patient was intubated and placed on a vent. She was sedated with fentanyl and propofol and was also placed on norepinephrine drip. At this point she was sedated without response. Renal function had worsened further with a BUN of 155 and creatinine 1.4.5. Liver function studies were also elevated. With family's decision to do dialysis Mr. Huerta agreed to the intubation. Patient had been placed on the waiting list at the [facility]. Plan also was to contact [facility] and [facility]. Ventilator settings we
== END 2021-04-21 10:15 | disposition short-term general hospital (02) | DRG 208 ==
LOC: ER 04-08 01:24 → 2ND 04-08 13:53 → ICU 04-14 18:14 → 2ND 04-20 02:07 → ICU 04-20 02:18
PROVIDERS: Internal Medicine Pulmonary Disease; Nurse Practitioner Family; Admitting Provider Family Medicine; Emergency Provider Emergency Medicine; PCP Family Medicine; Visit Provider Family Medicine
DX: U07.1 COVID-19 (principal); J12.82 Pneumonia due to coronavirus disease 2019; J96.01 Acute respiratory failure with hypoxia; I21.4 Non-ST elevation (NSTEMI) myocardial infarction; N17.9 Acute kidney failure, unspecified; Z68.41 Body mass index [BMI] 40.0-44.9, adult; E87.0 Hyperosmolality and hypernatremia; A04.72 Enterocolitis due to Clostridium difficile, not specified as recurrent; I82.811 Embolism and thrombosis of superficial veins of right lower extremity; I82.442 Acute embolism and thrombosis of left tibial vein; E11.22 Type 2 diabetes mellitus with diabetic chronic kidney disease; N18.9 Chronic kidney disease, unspecified; D69.59 Other secondary thrombocytopenia; I25.118 Atherosclerotic heart disease of native coronary artery with other forms of angina pectoris; E11.40 Type 2 diabetes mellitus with diabetic neuropathy, unspecified; E66.01 Morbid (severe) obesity due to excess calories; Z79.84 Long term (current) use of oral hypoglycemic drugs; E03.9 Hypothyroidism, unspecified; K21.9 Gastro-esophageal reflux disease without esophagitis; E78.5 Hyperlipidemia, unspecified; I12.9 Hypertensive chronic kidney disease with stage 1 through stage 4 chronic kidney disease, or unspecified chronic kidney disease; I25.2 Old myocardial infarction; Z95.1 Presence of aortocoronary bypass graft; E86.0 Dehydration
CPT/HCPCS: 31500; 94002; 36415; 71045; 80048; 80053; 81001; 82728; 82803; 82962; 83605; 83735; 83880; 84100; 84145; 84478; 84484; 85007; 85014; 85018; 85025; 85048; 85049; 85378; 86140; 86328; 87040; 87070; 87081; 87205; 87507; 93005; 93306; 93970; 94003; 94640; 94660; 94760; 94761; 96365; 96375; 99285; J0692; J1205; J2405; J2704; U0003